=== PATIENT | female | born 1975 | race Caucasian/White ===

== ENCOUNTER → 2018-05-27 13:46 | Outpatient (CLI) | payer OTHER, SELFPAY ==
--- NOTE | 2018-05-27 13:52 | ECHOD_ITS ---
Reason For Study: CHEST PAIN Procedure This was a 2D Doppler, Color Flow transthoracic echocardiogram. Exam performed in department. Left Ventricle Normal size and thickness. The estimated ejection fraction is 65 %. Normal diastology for age. No regional wall motion abnormalities noted. Right Ventricle Normal size and thickness. Normal systolic function. Atria Normal left atrium. Normal right atrium. Normal atrial septum. Mitral Valve The mitral valve is structurally normal. No prolapse or stenosis seen. Trivial mitral valve insufficiency. Tricuspid Valve Normal tricuspid valve. Trivial tricuspid valve insufficiency. Right ventricular systolic pressure estimated to be 35 mmHg. Aortic Valve Normal aortic valve. Trisinus/trileaflet aortic valve. Pulmonic Valve Normal pulmonic valve. Trivial pulmonic valve insufficiency. Great Vessels Normal aortic root. Normal arch. Normal inferior vena cava. Inferior vena cava collapse with sniff. Pericardium/Pleural No pericardial effusion. MMode/2D Measurements & Calculations LVIDd: 4.6 cm IVSd: 0.86 cm Ao root diam: 2.9 cm LVIDs: 3.0 cm LVPWd: 0.92 cm LA dimension: 3.3 cm RVDd: 2.9 cm FS: 34.8 % LAV(MOD-bp): 47.0 ml LA A4 area: 15.1 cm2 RA A4 area: 12.0 cm2 LAV(MOD-bp) Indexed: 26.9 ml/m2 LAV(MOD-sp2): 44.4 ml LAV(MOD-sp4): 41.0 ml Doppler Measurements & Calculations MV E max ousmane: 81.4 cm/sec Lat Peak E' Ousmane: 11.3 cm/sec Med Peak E' Ousmane: 10.6 cm/sec MV A max ousmane: 69.5 cm/sec E/E' lat: 7.2 E/E' med: 7.7 MV E/A: 1.2 Ao V2 max: 115.0 cm/sec LV V1 max: 97.1 cm/sec PA V2 max: 78.5 cm/sec Ao max P.3 mmHg LV V1 max P.8 mmHg PI end-d ousmane: 78.4 cm/sec TR max ousmane: 264.5 cm/sec TR max P.0 mmHg Interpretation Summary The estimated ejection fraction is 65 %. Normal diastology for age. Trivial mitral valve insufficiency. Trivial tricuspid valve insufficiency. Right ventricular systolic pressure estimated to be 35 mmHg. There is no comparison study available. Ordering Physician: Duarte Mayorga Referring Physician: Duarte Mayorga Performed By: Verónica Judd RDCS, RVT
== END ==
PROVIDERS: Family Provider Family Medicine; PCP Family Medicine; Referring Provider Internal Medicine Cardiovascular Disease; Visit Provider Internal Medicine Cardiovascular Disease
DX: I10 Essential (primary) hypertension (principal); R07.9 Chest pain, unspecified; Z82.49 Family history of ischemic heart disease and other diseases of the circulatory system
CPT/HCPCS: 93306

== ENCOUNTER → 2018-06-03 09:13 | Outpatient (CLI) | payer OTHER, SELFPAY ==
--- NOTE | 2018-06-03 09:14 | STEWCON_ITS ---
Reason For Study: CHEST PAIN Stress Results Protocol: Edmundo Protocol Maximum Predicted HR: 179 bpm Target HR: 152 bpm% Max imum Predicted HR: 93 % DurationHeart Rate Stage (mm:ss) (bpm) BP BASELINE 77 148/88 STAGE 1 3:00 11 3 150/90 STAGE 2 3:00 14 2 160/90 STAGE 3 3:00 16 6 172/86 RECOVERY 97 120/88 Stress Duration: 9:00 mm:ss Maximum Stress HR: 166 bpm Baseline Echocardiogram Findings The estimated ejection fraction is 60 %. Stress Echo Wall motion Data Resting WMIntermediate WMStress WM Resting Wall Motion Wall Motion Stress No regional wall motion No regional wall motion abnormalities noted. abnormalities noted. EKG Data The baseline ECG displays normal sinus rhythm. The patient exercised according to the regular Edmundo protocol for a total duration of 9:00. The maximum heart rate attained was 166 beats per minute. This was 92% of maximum predicted heart rate. The patient exercised into stage 4 of the Edmundo protocol. During stress, there were no ST or T wave changes noted to suggest ischemia. No clinical angina was noted. Interpretation Summary The estimated ejection fraction is 60 %. Normal, adequate, treadmill echocardiogram. Negative for ischemia by EKG and echocardiographic criteria. No anginal symptoms noted. No arrhythmias noted. Appropriate blood pressure response to exercise. Average exercise capacity for age. Final LVEF of 75%. Test terminated due to leg fatigue and dyspnea. No complications. Ordering Physician: Duarte Mayorga Referring Physician: Duarte Mayorga Performed By: Verónica Judd, ALFONSO, RVT
== END ==
PROVIDERS: Family Provider Family Medicine; PCP Family Medicine; Referring Provider Internal Medicine Cardiovascular Disease; Visit Provider Internal Medicine Cardiovascular Disease
DX: I10 Essential (primary) hypertension (principal); R07.9 Chest pain, unspecified; Z82.49 Family history of ischemic heart disease and other diseases of the circulatory system
CPT/HCPCS: 93017; 93350

== ENCOUNTER 2022-02-01 09:06 | Outpatient (CLI) | payer OTHER, SELFPAY ==
[2022-02-01 10:22] LABS: Hematocrit 41.8 % (37-47); Hemoglobin 13.3 g/dL (12.0-15.0); Mean Corpuscular Hgb 29.9 pg (27.0-32.0); Mean Corpuscular Volume 93.9 fL (81-99); Red Blood Count 4.45 M/mm3 (4.2-5.4); White Blood Count 8.3 K/mm3 (4.4-11.0)
[2022-02-01 10:23] LABS: Basophil# 0.04 X10^3/uL; Basophil% 0.5 % (0-1); Eosinophil# 0.11 X10^3/uL; Eosinophils% 1.3 % (0-5); Mean Corp Hgb Conc 31.8 g/dL (32-36); Mean Platelet Vol. 10.2 fl (6.2-12.0); Monocyte# 0.66 X10^3/uL; Monocyte% 7.9 % (0-10); NRBC Flagged by Analyzer 0 % (0-5); Neutrophil # 5.98 X10^3/uL (2.7-7.7); Neutrophil % 71.8 % (47-70); Platelet Count 275 K/mm3 (150-450); RBC Distribution Width CV 13.2 % (11.6-14.6); RBC Distribution Width SD 45.1 fl (35.1-43.9)
[2022-02-01 11:13] LABS: ALB/GLOB Ratio 1.2 RATIO (0.9-2.4); AST(SGOT) 29 U/L (15-37); Alanine Aminotransfer ALT/SGPT 60 U/L (13-56); Alkaline Phosphatase 66 U/L (45-117); Anion Gap 4 (5-15); BUN 12 mg/dL (7-18); Calcium,Total 9.3 mg/dL (8.5-10.1); Chloride 108 mmol/L (98-107); Cholesterol 225 mg/dL (200); Creatinine, Serum 0.93 mg/dL (0.55-1.02); EST Glomerular Filtration Rate 70 mL/min (>60); Est Glom Filt Rate - Afr Amer 84 mL/min (>60); Globulin 3.4 g/dL (2.2-4.2); Glucose 96 mg/dL (74-106); High Density Lipoprotein 54 mg/dL; Potassium 3.8 mmol/L (3.5-5.1); Protein, Total 7.4 g/dL (6.4-8.2); Sodium Level 141 mmol/L (136-145); Thyroid Stim Hormone (TSH) 1.05 uIU/mL (0.358-3.74); Triglycerides 167 mg/dL; Very Low Density Lipoprotein 33 mg/dL (5-40)
== END 2022-02-01 23:59 | disposition home or self-care (01) ==
PROVIDERS: PCP Family Medicine; Referring Provider Family Medicine; Visit Provider Family Medicine
DX: Z00.00 Encounter for general adult medical examination without abnormal findings (principal); R53.83 Other fatigue; E28.319 Asymptomatic premature menopause; I10 Essential (primary) hypertension
CPT/HCPCS: 36415; 80053; 80061; 84443; 85025

== ENCOUNTER → 2022-03-02 | Outpatient (CLI) | payer OTHER, SELFPAY ==
--- NOTE | 2022-03-02 14:05 | BI_ITS ---
MAMMOGRAPHY - BILATERAL SCREENING REASON FOR EXAM: Female, 46 years old. Routine annual screening examination. PERTINENT HISTORY: Non-contributory. TECHNIQUE: Digital bilateral breast jacqueline (3D mammographic acquisition) in the CC and MLO projections. 2-D mediolateral oblique (MLO) and craniocaudad (CC) views of both breasts were obtained. CAD: Full Field Digital Mammography with Computer Added Detection was performed. COMPARISON: Comparison is made with prior outside examination dated 06/02/2020. FINDINGS: Breast Composition: The breasts are heterogeneously dense, which may obscure small masses. There are no dominant masses or suspicious calcifications. Stable small benign-appearing bilateral axillary lymph nodes. No other significant abnormalities are identified. There has been no significant change since the prior study. BI/SCRN MAMM (CAD)W/JACQUELINE BILAT IMPRESSION: Stable bilateral screening mammogram. Yearly follow-up mammogram recommended. (A) ASSESSMENT CATEGORY: BIRADS Category 2: Benign. A letter regarding these results will be sent to the patient by the facility within 30 days. Approximately 10% of breast cancers are not detected by mammography. A normal mammogram should not delay biopsy of a clinically suspicious abnormality. [id number] Electronically Signed: Scott Pepe MD at 14:51 EDT ,
== END | disposition home or self-care (01) ==
LOC: OPBI 14:03
PROVIDERS: PCP Family Medicine; Referring Provider Family Medicine; Visit Provider Family Medicine
DX: Z12.31 Encounter for screening mammogram for malignant neoplasm of breast (principal)
CPT/HCPCS: 77063; 77067

== ENCOUNTER → 2023-02-12 | Outpatient (CLI) | payer OTHER, SELFPAY ==
[2023-02-12 13:06] LABS: Absolute Lymphocyte Count 2.08 X10^3/uL (0.83-4.51); Absolute Neutrophil Count 4.8 X10^3/uL (2.0-7.7); Basophil# 0.05 X10^3/uL; Basophil% 0.7 % (0-1); Eosinophil# 0.06 X10^3/uL; Eosinophils% 0.8 % (0-5); Hematocrit 45.3 % (37-47); Hemoglobin 14.4 g/dL (12.0-15.0); Lymphocyte # 2.08 X10^3/ul (0.83-4.51); Lymphocyte % 27.5 % (19-41); Mean Corp Hgb Conc 31.8 g/dL (32-36); Mean Corpuscular Hgb 29.1 pg (27.0-32.0); Mean Corpuscular Volume 91.7 fL (81-99); Mean Platelet Vol. 9.8 fl (6.2-12.0); Monocyte# 0.55 X10^3/uL; Monocyte% 7.3 % (0-10); NRBC Flagged by Analyzer 0 % (0-5); Neutrophil # 4.79 X10^3/uL (2.7-7.7); Neutrophil % 63.3 % (47-70); Platelet Count 313 K/mm3 (150-450); RBC Distribution Width CV 13.1 % (11.6-14.6); RBC Distribution Width SD 44.5 fl (35.1-43.9); Red Blood Count 4.94 M/mm3 (4.2-5.4); White Blood Count 7.6 K/mm3 (4.4-11.0)
[2023-02-12 14:01] LABS: AST(SGOT) 31 U/L (15-37); Alanine Aminotransfer ALT/SGPT 62 U/L (13-56); Albumin, Serum 4.2 g/dL (3.2-5.0); Alkaline Phosphatase 84 U/L (45-117); Anion Gap 8 (5-15); BUN 10 mg/dL (7-18); BUN/Creat Ratio 11.1 RATIO (10-20); Calcium,Total 9.9 mg/dL (8.5-10.1); Chloride 105 mmol/L (98-107); EST Glomerular Filtration Rate 71 mL/min (>60); Est Glom Filt Rate - Afr Amer 86 mL/min (>60); Glucose 118 mg/dL (74-106); Potassium 3.7 mmol/L (3.5-5.1); Protein, Total 8.2 g/dL (6.4-8.2); Sodium Level 140 mmol/L (136-145)
== END | disposition home or self-care (01) ==
LOC: LAB 12:45
PROVIDERS: PCP Family Medicine; Referring Provider Family Medicine; Visit Provider Family Medicine
DX: Z00.00 Encounter for general adult medical examination without abnormal findings (principal); I10 Essential (primary) hypertension
CPT/HCPCS: 36415; 80053; 85025

== ENCOUNTER → 2023-04-16 | Outpatient (CLI) | payer OTHER, SELFPAY ==
--- NOTE | 2023-04-16 09:32 | BI_ITS ---
MAMMOGRAPHY - BILATERAL SCREENING REASON FOR EXAM: Female, 47 years old. Routine annual screening examination. PERTINENT HISTORY: Non-contributory. TECHNIQUE: Digital bilateral breast jacqueline (3D mammographic acquisition) in the CC and MLO projections. 2-D mediolateral oblique (MLO) and craniocaudad (CC) views of both breasts were obtained. CAD: Full Field Digital Mammography with Computer Added Detection was performed. COMPARISON: Screening mammogram from 03/02/2022. FINDINGS: Breast Composition: The breasts are heterogeneously dense, which may obscure small masses. There are no dominant masses or suspicious calcifications. No other significant abnormalities are identified. There has been no significant change since the prior study. BI/SCRN MAMM (CAD)W/JACQUELINE BILAT IMPRESSION: Stable bilateral screening mammogram. Yearly follow-up mammogram recommended. (A) ASSESSMENT CATEGORY: BIRADS Category 1: Negative. A letter regarding these results will be sent to the patient by the facility within 30 days. Approximately 10% of breast cancers are not detected by mammography. A normal mammogram should not delay biopsy of a clinically suspicious abnormality. Electronically Signed: Willis Hirsch DO at 14:52 EDT ,
== END | disposition home or self-care (01) ==
LOC: OPBI 09:30
PROVIDERS: PCP Family Medicine; Referring Provider Family Medicine; Visit Provider Family Medicine
DX: Z12.31 Encounter for screening mammogram for malignant neoplasm of breast (principal)
CPT/HCPCS: 77063; 77067

== ENCOUNTER → 2023-12-12 | Outpatient (CLI) | payer OTHER, SELFPAY ==
[2023-12-12 18:09] LABS: Hematocrit 42.5 % (37-47); Hemoglobin 13.8 g/dL (12.0-15.0); Mean Corp Hgb Conc 32.5 g/dL (32-36); Mean Corpuscular Hgb 29.2 pg (27.0-32.0); Mean Corpuscular Volume 89.9 fL (81-99); Mean Platelet Vol. 10.2 fl (6.2-12.0); Platelet Count 338 K/mm3 (150-450); RBC Distribution Width CV 13.3 % (11.6-14.6); RBC Distribution Width SD 44.3 fl (35.1-43.9); Red Blood Count 4.73 M/mm3 (4.2-5.4); White Blood Count 6.3 K/mm3 (4.4-11.0)
[2023-12-12 18:23] LABS: Hemoglobin A1c 5.5 % (3.8-5.6)
[2023-12-12 18:25] LABS: Estradiol 15.4 pg/mL; Follicle Stimulating Hormone 63.2 mIU/mL; Glucose 134 mg/dL (74-106); Thyroid Stim Hormone (TSH) 0.87 uIU/mL (0.358-3.74)
[2023-12-12 18:26] LABS: Insulin 232.8 mU/L (2.6-37.6); Vitamin D,25 Hydroxy 13.4 ng/mL
[2023-12-17 08:06] LABS: Anti-Mullerian Hormone,Serum < 0.015 ng/mL (.)
== END | disposition home or self-care (01) ==
PROVIDERS: PCP Family Medicine; Referring Provider Midwife; Visit Provider Midwife
DX: Z01.419 Encounter for gynecological examination (general) (routine) without abnormal findings (principal); R63.5 Abnormal weight gain
CPT/HCPCS: 36415; 82306; 82670; 82947; 83001; 83036; 83516; 83525; 84443; 85027

== ENCOUNTER → 2024-04-20 | Outpatient (CLI) | payer OTHER, SELFPAY ==
--- NOTE | 2024-04-20 10:05 | BI_ITS ---
MAMMOGRAPHY - BILATERAL SCREENING REASON FOR EXAM: Female, 48 years old. Routine annual screening examination. PERTINENT HISTORY: Non-contributory. TECHNIQUE: Digital bilateral breast jacqueline (3D mammographic acquisition) in the CC and MLO projections. 2-D mediolateral oblique (MLO) and craniocaudad (CC) views of both breasts were obtained. CAD: Full Field Digital Mammography with Computer Added Detection was performed. COMPARISON: Comparison is made with prior study April 16, 2023 and March 02, 2022. FINDINGS: Breast Composition: The breasts are heterogeneously dense, which may obscure small masses. There are no dominant masses or suspicious calcifications. Stable small benign-appearing bilateral axillary lymph nodes. No other significant abnormalities are identified. There has been no significant change since the prior study. BI/SCRN MAMM (CAD)W/JACQUELINE BILAT IMPRESSION: Stable bilateral screening mammogram. Yearly follow-up mammogram recommended. (A) ASSESSMENT CATEGORY: BIRADS Category 2: Benign. A letter regarding these results will be sent to the patient by the facility within 30 days. Approximately 10% of breast cancers are not detected by mammography. A normal mammogram should not delay biopsy of a clinically suspicious abnormality. [id number] Electronically Signed: Scott Pepe MD at 10:45 EDT ,
== END | disposition home or self-care (01) ==
LOC: OPBI 09:57
PROVIDERS: PCP Family Medicine; Referring Provider Midwife; Visit Provider Midwife
DX: Z12.31 Encounter for screening mammogram for malignant neoplasm of breast (principal)
CPT/HCPCS: 77063; 77067

== ENCOUNTER → 2024-09-22 | Outpatient (CLI) | payer OTHER, SELFPAY ==
--- NOTE | 2024-09-22 11:44 | US_ITS ---
PROCEDURE: Thyroid ultrasound REASON FOR EXAM: Swollen lymph node. TECHNIQUE: Thyroid ultrasound COMPARISON: None. FINDINGS: RIGHT LOBE: The right lobe of the thyroid gland measures 4 cm x 1.9 cm x 1.7 cm. There is a homogen eous echotexture. There are no demonstrated solid, cystic or complex lesions. LEFT LOBE: The left lobe of the thyroid gland measures 3.9 cm x 1.5 cm x 1.9 cm. There is a homogen eous echotexture. There are no demonstrated solid, cystic or complex lesions. ISTHMUS: The isthmus measures 4 mm. 8 mm x 4 mm x 2 mm benign-appearing right-sided lymph node. US/Thyroid IMPRESSION: NORMAL THYROID ULTRASOUND 8 mm x 4 mm x 2 mm right cervical lymph node. [facility]
== END | disposition home or self-care (01) ==
LOC: US 11:43
PROVIDERS: PCP Family Medicine; Referring Provider Family Medicine; Visit Provider Family Medicine
DX: E01.0 Iodine-deficiency related diffuse (endemic) goiter (principal)
CPT/HCPCS: 76536

== ENCOUNTER 2025-01-06 13:33 | Outpatient (CLI) | payer OTHER, SELFPAY ==
[2025-01-06 15:28] LABS: Follicle Stimulating Hormone 62.3 mIU/mL
== END 2025-01-06 23:59 | disposition home or self-care (01) ==
PROVIDERS: Referring Provider Nurse Practitioner Family; Visit Provider Nurse Practitioner Family
DX: N95.1 Menopausal and female climacteric states (principal)
CPT/HCPCS: 36415; 82670; 83001

== ENCOUNTER → 2025-01-26 | Outpatient (CLI) | payer OTHER, SELFPAY | END | disposition home or self-care (01) | LOC: LABSPEC 08:16 | PROVIDERS: Visit Provider Physician Assistant | DX: R30.0 Dysuria (principal) | CPT/HCPCS: 87077; 87086; 87088; 87186 ==

== ENCOUNTER → 2025-02-12 | Outpatient (CLI) | payer OTHER, SELFPAY ==
[2025-02-12 10:04] LABS: Absolute Lymphocyte Count 2.66 X10^3/uL (0.83-4.51); Absolute Neutrophil Count 3.7 X10^3/uL (2.0-7.7); Basophil# 0.05 X10^3/uL; Basophil% 0.7 % (0-1); Eosinophil# 0.13 X10^3/uL; Eosinophils% 1.8 % (0-5); Hematocrit 42.2 % (37-47); Hemoglobin 13.8 g/dL (12.0-15.0); Lymphocyte # 2.66 X10^3/ul (0.83-4.51); Lymphocyte % 36.3 % (19-41); Mean Corp Hgb Conc 32.7 g/dL (32-36); Mean Corpuscular Hgb 29.7 pg (27.0-32.0); Mean Corpuscular Volume 90.8 fL (81-99); Mean Platelet Vol. 9.9 fl (6.2-12.0); Monocyte# 0.79 X10^3/uL; Monocyte% 10.8 % (0-10); NRBC Flagged by Analyzer 0 % (0-5); Neutrophil # 3.67 X10^3/uL (2.7-7.7); Neutrophil % 50.1 % (47-70); Platelet Count 347 K/mm3 (150-450); RBC Distribution Width SD 42.8 fl (35.1-43.9); Red Blood Count 4.65 M/mm3 (4.2-5.4); White Blood Count 7.3 K/mm3 (4.4-11.0)
--- NOTE | 2025-02-12 10:11 | RAD_ITS ---
EXAM: XR Right Hip With Pelvis When Performed, 2 or 3 Views CLINICAL INDICATION: PAIN TECHNIQUE: Two or three views of the right hip with pelvis when performed. COMPARISON: No relevant prior studies available. FINDINGS: BONES/JOINTS: Mild degenerative changes of the right hip joint. No dislocation. No acute fracture. SOFT TISSUES: Unremarkable. RAD/HIP, UNI W/ Pelvis 2-3 Views IMPRESSION: No acute fracture. Reading Location: [id number]
[2025-02-12 11:11] LABS: ALB/GLOB Ratio 1.4 RATIO (0.9-2.4); AST(SGOT) 27 U/L (<=31); Alanine Aminotransfer ALT/SGPT 38 U/L (<=34); Albumin, Serum 4.3 g/dL (3.5-5.0); Alkaline Phosphatase 70 U/L (35-104); Anion Gap 13 (5-15); BUN 14 mg/dL (4-19); BUN/Creat Ratio 16.2 RATIO (10-20); Calcium,Total 9.6 mg/dL (7.6-11.0); Carbon Dioxide 27.3 mmol/L (21.0-32.0); Chloride 100 mmol/L (98-108); Cholesterol 225 mg/dL (<=200); Creatinine, Serum 0.85 mg/dL (0.70-1.20); EST Glomerular Filtration Rate 85 (>60); Glucose 101 mg/dL (70-99); High Density Lipoprotein 47 mg/dL; Low Density Lipoprotein Calc. 146 mg/dL; Potassium 3.7 mmol/L (3.3-5.1); Protein, Total 7.3 g/dL (5.9-8.4); Sodium Level 140 mmol/L (133-145); Total Bilirubin 0.31 mg/dL (0.00-1.30); Triglycerides 161 mg/dL; Very Low Density Lipoprotein 32 mg/dL (5-40); cholesterol:hdl ratio screen 4.78
== END | disposition home or self-care (01) ==
LOC: MTLAB 07:32 → MTRAD 09:48
PROVIDERS: PCP Family Medicine; Referring Provider Family Medicine; Visit Provider Family Medicine
DX: Z00.00 Encounter for general adult medical examination without abnormal findings (principal); I10 Essential (primary) hypertension; R53.83 Other fatigue; M25.551 Pain in right hip
CPT/HCPCS: 36415; 73502; 80053; 80061; 84443; 85025

== ENCOUNTER → 2025-04-14 | Outpatient (CLI) | payer OTHER, SELFPAY ==
--- OUTSIDE RECORDS SUMMARY | 2025-04-14 07:08 | XMS RPT_ITS | CCD ---
Author Organization [facility] Care Team Providers Care Ui Ux Web Developer Name Role Phone Georgia Dillon MD Primary Care Provider RADHA PATRICK Primary Care Physician [phone] ITZEL CAPONE Attending Unav ailable RADHA PATRICK Primary Care Unavailable Georgia Dillon MD Primary Care Provider Dr. Radha Patrick MD Primary Care Provider Dr. Radha Patrick MD Attending Provider Dr. Radha Patrick MD Referring Provider Dr. Jr Oviedo MD Attending Provider Anitha TELLEZ-CYamilex Attending Provider Anitha HENSONCYamilex Referring Provider Dr. Radha Patrick MD Referring Provider Cole Mejia Attending Provider Dr. Jr Oviedo MD Referring Provider Dr. Radha Patrick MD Referring Provider Dr. Radha Patrick MD Primary Care Provider Dr. Radha Patrick MD Attending Provider Radha Patrick Referring Unavailable Radha Patrick Primary Care Unavailable Yamilex Welsh Attending Unavailable Yamilex Welsh Referring Unavailable Yamilex Welsh Attending Unavailable Radha Patrick Referring Unavailable Miedel, Radha Primary Care Unavailable Darnell Radha Attending Unavailable Miedel, Radha Referring Unavailable Miedel, Radha Primary Care Unavailable Mianuj Radha Attending Unavailable Miedel, Radha Primary Care Unavailable Miedel Radha Attending Unavailable Miedel, Radha Referring Unavailable Itzel Berg Attending Unavailable Itzel Berg Referring Unavailable Nved, Radha Primary Care Unavailable Cole Mejia Attending Unavailable Leanneedel, Radha Referring Unavailable [place]iedel, Radha Primary Care Unavailable Mianuj Radha Attending Unavailable Jr Oviedo Attending Unavailable Jr Oviedo Referring Unavailable Cole Mejia Attending Unavailable Medications Current Medications Medication Drug Class(es) Dates Sig (Normalized) Sig (Original) amLODIPine 10 mg / hydroCHLOROthiazide 12.5 mg / olmesartan medoxomil 40 mg oral tablet (5 sources) Thiazide Diuretic, Dihydropyridine Calcium Channel Lito, Angiotensin 2 Receptor Lito Start: 5 Olmesartan-Amlodip in-Hcthiazid 40-10-12.5 mg tablet Active 1 {tbl} PO daily December 09, 2024 12:00am cholecalciferol 0.025 mg oral capsule (5 sources) Vitamin D Start: 5 take 1 capsule by mouth once daily Cholecalciferol (Vitamin D3) 25 mcg (1,000 unit) capsule Active 25 ug PO daily December 09, 2024 12:00am Estradiol (Vivelle-Dot) 0.05 mg/24 hr patch semiweekly (1 source) Start: 5 apply 1 dose transdermal route two times weekly, then apply 1 dose transdermal route every hour Estradiol (Vivelle-Dot) 0.05 mg/24 hr patch semiweekly Active 1 NMA TD TWICE A WEEK 8 February 04, 2025 12:00am apply 1 patch for 3 days alternating with 1 patch for 4 days each week fluticasone propionate 0.05 mg/actuat metered dose nasal spray (4 sources) Corticosteroid Start: 1 take 2 spray(s) by mouth once daily fluticasone (FLONASE) 50 mcg/actuation nasal spray Indications: Dysfunction of Eustachian tube, unspecified laterality Use 2 Sprays in each nostril once daily. Rinse mouth after use. 1 Bottle 12/22/2020 Active Comment on above: Use 2 Sprays in each nostril once daily. Rinse mouth after use. folic acid 0.4 mg oral tablet (5 sources) Start: 5 take 0.4 mg by mouth once daily Folic Acid 400 mcg tablet Active 0.4 mg PO daily December 09, 2024 12:00am magnesium oxide 500 mg oral capsule (5 sources) Start: 5 take 1 capsule by mouth once daily Magnesium Oxide 500 mg capsule Active 500 mg PO daily December 09, 2024 12:00am mecobalamin (5 sources) Start: 5 Mecobalamin (Vitamin B12) 2,500 mcg tablet,chewable Active ug PO December 09, 2024 12:00am meloxicam 15 mg oral tablet (5 sources) Nonsteroidal Anti-inflammatory Drug Start: 5 take 1 tablet by mouth once daily Meloxicam 15 mg tablet Active 15 mg PO daily December 09, 2024 12:00am olmesartan medoxomil 40 mg oral tablet (5 sources) Angiotensin 2 Receptor Lito Start: 1 take 1 tablet by mouth once daily olmesartan (BENICAR) 40 mg tablet Take 1 tablet by mouth once daily. 30 tablet 12/22/2020 Active Comment on above: Take 1 tablet by lynette th once daily. pantoprazole 40 mg delayed release oral tablet (5 sources) Proton Pump Inhibitor Start: 5 take 1 tablet by mouth once daily Pantoprazole 40 mg tablet,delayed release (DR/EC) Active 40 mg PO daily December 09, 2024 12:00am phentermine hydrochloride 37.5 mg oral capsule (14 sources) Sympathomimetic Amine Anorectic Start: 5 take 1 capsule by mouth once daily 30 minutes after breakfast Phentermine 37.5 mg capsule Active 37.5 mg PO daily December 09, 2024 12:00am must administer 30 minutes before or 1-2 hours after breakfast Start: 05-19-2018 End: 05-22-2018 take 1 capsule by mouth once daily Phentermine (Adipex-P) 37.5 mg capsule Discontinued 37.5 mg PO DAILY May 19, 2018 12:00am May 22, 2018 11:13am progesterone 100 mg oral capsule (9 sources) Progesterone Start: 12-09-2024 End: 01-06-2025 take 1 capsule by mouth once daily in the morning Progesterone Micronized (Prometrium) 100 mg capsule Active 100 mg PO EVERY MORNING 30 January 06, 2025 3:31pm off 7 days; repeat cycle Completed/Discontinued Medications Medication Drug Class(es) Dates Sig (Normalized) Sig (Original) 84 hr estradiol 0.01063 mg/hr transdermal system (10 sources) Estrogen Start: 01-06-2025 End: 02-04-2025 Estradiol 0.0375 mg/24 hr patch semiweekly Discontinued 1 NMA TD TWICE A WEEK 8 January 06, 2025 12:00am February 04, 2025 2:33pm apply 1 patch for 3 days alternating with 1 patch for 4 days each week for 3 wks per 4-wk cycle Start: 12-09-2024 End: 01-06-2025 apply 1 dose transdermal route two times weekly, then apply 1 dose transdermal route once Estradiol 0.025 mg/24 hr patch semiweekly Discontinued 1 NMA TD TWICE A WEEK December 09, 2024 12:00am January 06, 2025 3:32pm apply 1 patch for 3 days alternating with 1 patch for 4 days each week Start: 12-07-2019 End: 06-14-2021 take 1 tablet by mouth once daily estradiol (ESTRACE) 1 mg tablet Take 1 tablet by mouth once daily. 30 tablet 5 12/07/2019 06/14/2021 Discontinued (Course of therapy completed) folic acid 0.4 mg / vitamin b12 0.5 mg oral tablet (9 sources) Vitamin B12 Start: 05-22-2018 End: 12-09-2024 take 1 tablet by mouth once daily Vitamin J91-Gdtyk Acid 500-400 mcg tablet Discontinued 1 {tbl} PO .COMPLEX May 22, 2018 12:00am December 09, 2024 10:16am 1 tab PO 500 B 12 with 800 folic acid once daily ketorolac tromethamine 10 mg oral tablet (13 sources) Nonsteroidal Anti-inflammatory Drug, Cyclooxygenase Inhibitor Start: 05-28-2017 End: 05-22-2018 take 1 tablet by mouth every six hours as needed Ketorolac 10 mg tablet Discontinued 10 mg PO EVERY 6 HOURS as needed May 19, 2018 12:00am May 22, 2018 11:12am Comment on above: Take 1 tablet by lynette th every 6 hours as needed. losartan potassium 50 mg oral tablet (9 sources) Angiotensin 2 Receptor Lito Start: 05-19-2018 End: 12-09-2024 take 1 tablet by mouth once daily Losartan 50 mg tablet Discontinued 50 mg PO DAILY May 19, 2018 12:00am December 09, 2024 10:15am nitrofurantoin, macrocrystals 25 mg / nitrofurantoin, monohydrate 75 mg oral capsule (3 sources) Nitrofuran Antibacterial Start: 01-26-2025 End: 01-31-2025 take 1 capsule by mouth every twelve hours at mealtime Nitrofurantoin Monohyd/M-Cryst (Macrobid) 100 mg capsule Discontinued 100 mg PO Q12H 10 5 0 January 26, 2025 12:00am January 30, 2025 12:00am January 31, 2025 12:08am must administer with a meal/food sulfacetamide sodium 100 mg/ml / sulfur 45 mg/ml medicated liquid soap (9 sources) Sulfonamide Antibacterial Start: 05-19-2018 End: 12-09-2024 Sulfacetamide Sodium-Sulfur (Rosula) 10-4.5 % cleanser Discontinued 1 NMA TOPICAL DAILY May 19, 2018 12:00am December 09, 2024 10:16am Start: 05-19-2018 Sulfacetamide Sodium-Sulfur (Rosula) 10-4.5 % cleanser Active 1 APPLIC TOPICAL DAILY May 19, 2018 12:00am ZOLMitriptan 5 mg oral tablet (14 sources) Serotonin-1b and Serotonin-1d Receptor Agonist Start: 05-19-2018 End: 12-09-2024 take 1 tablet by mouth once daily as needed Zolmitriptan (Zomig) 5 mg tablet Discontinued 5 mg PO .COMPLEX May 19, 2018 12:00am December 09, 2024 10:16am 5 mg PO daily prn, may repeat X1 if not effective Comment on above: Take at once for cristian lucien. May repeat in 2 hours if needed. Problems Active Problems Problem Classification Problem Date Documented Da te Episodic/Chronic Contraceptive and procreative management (16 sources) Patient encounter status; Translations: [Encounter for sterilization] Onset: 08-02-2005 08-02-2005 Episodic Essential hypertension (9 sources) Hypertensive disorder; Translations: [Essential (primary) hypertension] 05-19-2018 Chronic Genitourinary symptoms and ill-defined conditions (1 source) Dysuria; Translations: [Dysuria] Onset: 01-28-2025 Episodic Headache; including migraine (13 sources) Menstrual migraine; Translations: [Menstrual migraine, not intractable, without status migrainosus] Onset: 05-28-2006 08-21-2021 Chronic Menopausal disorders (13 sources) Premature menopause; Translations: [Asymptomatic premature menopause] Onset: 04-27-2015 04-27-2015 Chronic Menstrual disorders (20 sources) Dysmenorrhea; Translations: [Dysmenorrhea, unspecified] Onset: 07-03-2011 07-03-2011 Chronic Nonspecific chest pain (9 sources) Chest pain; Translations: [Chest pain, unspecified] 11-27-2018 Episodic Other gastrointestinal disorders (13 sources) Irritable bowel syndrome; Translations: [Irritable bowel syndrome without diarrhea] Onset: 05-28-2006 05-28-2006 Chronic Other inflammatory condition of skin (9 sources) Rosacea; Translations: [Rosacea, unspecified] 05-19-2018 Chronic Other lower respiratory disease (1 source) Cough; Translations: [Cough] 05-16-2021 Episodic Other nutritional; endocrine; and metabolic disorders (4 sources) Obesity; Translations: [Obesity, unspecified] Onset: 02-23-2008 02-23-2008 Chronic Otitis media and related conditions (13 sources) Dysfunction of eustachian tube; Translations: [Other specified disorders of Eustachian tube, unspecified ear] 06-22-2011 Episodic Residual codes; unclassified (9 sources) History of chest pain; Translations: [Personal history of other specified conditions] 11-27-2018 Episodic Residual codes; unclassified (9 sources) Family history of ischemic heart disease; Translations: [Family history of ischemic heart disease and other diseases of the circulatory system] 05-19-2018 Episodic Residual codes; unclassified (9 sources) History of endometrial ablation; Translations: [Other specified postprocedural states] 05-19-2018 Episodic Residual codes; unclassified (1 source) Encounter for cosmetic surgery; Translations: [Encounter for cosmetic surgery] Onset: 02-03-2025 Episodic Spondylosis; intervertebral disc disorders; other back problems (13 sources) Sciatica; Translations: [Sciatica, unspecified side] Onset: 11-10-2007 11-10-2007 Episodic Thyroid disorders (1 source) Iodine-deficiency related diffuse (endemic) goiter; Translations: [Iodine-deficiency related diffuse (endemic) goiter] Onset: 10-09-2024 Chronic Viral infection (1 source) COVID-19; Translations: [Pneumonia due to other virus not elsewhere classified] 06-14-2021 Episodic Past or Other Problems Problem Classification Problem Date Documented Da te Episodic/Chronic Administrative/social admission (4 sources) Multiparous; Translations: [Problems related to multiparity] Onset: 08-02-2005 08-02-2005 Episodic Menopausal disorders (1 source) Hormone replacement therapy; Translations: [Hormone replacement therapy] Onset: 01-06-2025 Episodic Neoplasms of unspecified nature or uncertain behavior (4 sources) Neoplasm of uncertain behavior of skin; Translations: [Neoplasm of uncertain behavior of skin] Onset: 07-21-2010 07-21-2010 Episodic Nutritional deficiencies (4 sources) Cobalamin deficiency; Translations: [Deficiency of other specified B group vitamins] Onset: 06-04-2017 06-04-2017 Episodic Other and unspecified benign neoplasm (1 source) Neoplasm of soft tissue; Translations: [Other benign neoplasm of skin, unspecified] Onset: 07-21-2010 07-21-2010 Episodic Other and unspecified benign neoplasm (3 sources) Dysplastic nevus of skin; Translations: [Other benign neoplasm of skin, unspecified] Onset: 07-21-2010 07-21-2010 Episodic Other circulatory disease (4 sources) Elevated blood-pressure reading without diagnosis of hypertension; Translations: [Elevated blood-pressure reading, without diagnosis of hypertension] Onset: 05-28-2006 05-28-2006 Episodic Other connective tissue disease (4 sources) Pain in limb; Translations: [Pain in unspecified limb] Onset: 10-17-2007 10-17-2007 Episodic Other ear and sense organ disorders (4 sources) Tinnitus; Translations: [Tinnitus, unspecified ear] Onset: 02-25-2009 02-25-2009 Episodic Other ear and sense organ disorders (4 sources) Hyperacusis; Translations: [Hyperacusis, unspecified ear] Onset: 02-25-2009 02-25-2009 Episodic Other screening for suspected conditions (not mental disorders or infectious disease) (5 sources) Encounter for screening for malignant neoplasm of cervix; Translations: [Encounter for other screening for malignant neoplasm of breast] Onset: 12-04-2023 Episodic Results Test Name Value Interpretation Reference Range Facility Absolute lymphocyte countOrd ered By: Radha Patrick on 02-12-2025 Lymphocytes Auto (Unsp spec) [#/Vol] 2.66 10*3/uL 0.83-4.51 [facility] Absolute neutrophil countOrd ered By: Radha Patrick on 02-12-2025 Neutrophils (Bld) [#/Vol] 3.7 10*3/uL 2.0-7.7 [facility] Anion gap in Serum or Plasma Ordered By: Radha Patrick on 02-12-2025 Anion gap [Moles/Vol] 13 mmol/L - [facility] Automated lymphocyte count a s percentage of total leukocytesOrdered By: Radha Patrick on 02-12-2025 Lymphocytes/100 WBC Auto (Unsp spec) 36.3 % - [facility] BUN/creatinine ratioOrdered By: [facility] 02-[facility]-2025 Urea nitrogen/Creatinine [Mass ratio] 16.2 mg/mg 06-14 [facility] Basophil percentageOrdered B y: Radha Patrick on 02-12-2025 Basophils/100 WBC (Bld) 0.7 % 0-1 [facility] Bilirubin, totalOrdered By: Radha Patrick on 02-12-2025 Bilirubin [Mass/Vol] 0.31 mg/dL 0.00-1.30 [facility] CBC W/Diff, Automatedon 01-25 Absolute Lymph 2.66 X10 3/uL Normal 0.83-4.51 [facility] Comment on above: Performed By: #### L 500.4050, L500.4100, L501.9520, L100.0100 #### [facility] [address] [place], [place], [id number] Absolute Neut 3.7 X10 3/uL Normal 2.0-7.7 [facility] Comment on above: Performed By: #### L 500.4050, L500.4100, L501.9520, L100.0100 #### [facility] [address] [place], [address] Basophils/100 WBC (Bld) 0.7 % Normal 0-1 [facility] Comment on above: Performed By: #### L 500.4050, L500.4100, [id number], L100.0100 #### [facility] [address] [place], [address] Eosinophils/100 WBC (Bld) 1.8 % Normal 0-5 [facility] Comment on above: Performed By: #### L 500.4050, L500.4100, [id number], L100.0100 #### [facility] [address] [place], [address] Erythrocyte distribution width (RBC) [Ratio] 13.0 % Normal 11.6-14.6 [facility] Comment on above: Performed By: #### L 500.4050, L500.4100, [id number], L100.0100 #### [facility] [address] [place], [address] Hematocrit (Bld) [Volume fraction] 42.2 % Normal 37-47 [facility] Comment on above: Performed By: #### L 500.4050, L500.4100, [id number], L100.0100 #### [facility] [address] [place], [address] Hemoglobin (Bld) [Mass/Vol] 13.8 g/dL Normal 12.0-15.0 [facility] Comment on above: Performed By: #### L 500.4050, L500.4100, [id number], L100.0100 #### [facility] [address] [place], [address] IG% 0.300 Normal 0.0-0.9 [facility] Comment on above: Result Comment: IG% - Immature Granulocytes (promyelocytes, myelocytes and metamyelocytes) > 1% indicates that a LEFT SHIFT is Present. Performed By: #### L 500.4050, L500.4100, [id number], L100.0100 #### [facility] [address] [place], [address] Lymphocytes/100 WBC (Bld) 36.3 % Normal 19-41 [facility] Comment on above: Performed By: #### L 500.4050, L500.4100, [id number], L100.0100 #### [facility] [address] [place], [address] MCH (RBC) [Entitic mass] 29.7 pg Normal 27.0-32.0 [facility] Comment on above: Performed By: #### L 500.4050, L500.4100, [id number], L100.0100 #### [facility] [address] [place], [address] MCHC (RBC) [Mass/Vol] 32.7 g/dL Normal 32-36 [facility] Comment on above: Performed By: #### L 500.4050, L500.4100, [id number], L100.0100 #### [facility] [address] [place], [address] MCV (RBC) [Entitic vol] 90.8 fL Normal 81-99 [facility] Comment on above: Performed By: #### L 500.4050, L500.4100, [id number], L100.0100 #### [facility] [address] [place], [address] Monocytes/100 WBC (Bld) 10.8 % High 0-10 [facility] Comment on above: Performed By: #### L 500.4050, L500.4100, [id number], L100.0100 #### [facility] [address] [place], [address] Neutrophils/100 WBC (Bld) 50.1 % Normal 47-70 [facility] Comment on above: Performed By: #### L 500.4050, L500.4100, [id number], L100.0100 #### [facility] [address] [place], [address] Nucleated RBC (Bld) [#/Vol] 0 10*3/uL Normal 0-5 [facility] Comment on above: Performed By: #### L 500.4050, L500.4100, [id number], L100.0100 #### [facility] [address] [place], [address] Platelet mean volume (Bld) [Entitic vol] 9.9 fL Normal 6.2-12.0 [facility] Comment on above: Performed By: #### L 500.4050, L500.4100, [id number], L100.0100 #### [facility] [address] [place], [address] Platelets (Bld) [#/Vol] 347 10*3/uL Normal 150-450 [facility] Comment on above: Performed By: #### L 500.4050, L500.4100, [id number], L100.0100 #### [facility] [address] [place], [address] RBC (Bld) [#/Vol] 4.65 10*6/uL Normal 4.2-5.4 [facility] Comment on above: Performed By: #### L 500.4050, L500.4100, [id number], L100.0100 #### [facility] [address] [place], [address] RDW SD 42.8 fl Normal 35.1-43.9 [facility] Comment on above: Performed By: #### L 500.4050, L500.4100, [id number], L100.0100 #### [facility] [address] [place], [address] WBC (Bld) [#/Vol] 7.3 10*3/uL Normal 4.4-11.0 [facility] Comment on above: Performed By: #### L 500.4050, L500.4100, [id number], L100.0100 #### [facility] [address] [place], [address] Calculated very low density lipoprotein (VLDL) cholesterol measurementOrdered By: Radha Patrick on 02-12-2025 Calculated very low density lipoprotein (VLDL) cholesterol measurement 32 mg/dL 5-40 [facility] Carbon dioxide, total [Moles /volume] in Central venous bloodOrdered By: Radha Patrick on 02-12-2025 CO2 [Moles/Vol] 27.3 mmol/L 21.0-32.0 [facility] Chloride assayOrdered By: Maycol Patrick on 02-12-2025 Chloride [Moles/Vol] 100 mmol/L 98-108 [facility] Comprehensive Metabolic Prof ilon 02-12-2025 Albumin [Mass/Vol] 4.3 g/dL Normal 3.5-5.0 [facility] Comment on above: Performed By: #### L 500.4050, L500.4100, [id number], L100.0100 ####[facility] [address] [place], [address] Albumin/Globulin [Mass ratio] 1.4 {ratio} Normal 0.9-2.4 [facility] Comment on above: Performed By: #### L 500.4050, L500.4100, [id number], L100.0100 ####[facility] [address] [place], [address] ALK PHOS 70 U/L Normal 35-104 [facility] Comment on above: Performed By: #### L 500.4050, L500.4100, [id number], L100.0100 ####[facility] [address] [place], [address] ALT [Catalytic activity/Vol] 38 U/L High <=34 [facility] Comment on above: Performed By: #### L 500.4050, L500.4100, [id number], L100.0100 ####[facility] [address] [place], [address] AST [Catalytic activity/Vol] 27 U/L Normal <=31 [facility] Comment on above: Performed By: #### L 500.4050, L500.4100, [id number], L100.0100 ####[facility] [address] [place], [address] Bilirubin [Mass/Vol] 0.31 mg/dL Normal 0.00-1.30 [facility] Comment on above: Performed By: #### L 500.4050, L500.4100, [id number], L100.0100 ####[facility] [address] [place], [address] BUN/CRE 16.2 RATIO Normal 10-20 [facility] Comment on above: Performed By: #### L 500.4050, L500.4100, [id number], L100.0100 ####[facility] [address] [place], [address] Calcium [Mass/Vol] 9.6 mg/dL Normal 7.6-11.0 [facility] Comment on above: Performed By: #### L 500.4050, L500.4100, [id number], L100.0100 ####[facility] [address] [place], [address] Chloride [Moles/Vol] 100 mmol/L Normal 98-108 [facility] Comment on above: Performed By: #### L 500.4050, L500.4100, [id number], L100.0100 ####[facility] [address] [place], [address] CO2 [Moles/Vol] 27.3 mmol/L Normal 21.0-32.0 [facility] Comment on above: Performed By: #### L 500.4050, L500.4100, [id number], L100.0100 ####[facility] [address] [place], [address] Creatinine [Mass/Vol] 0.85 mg/dL Normal 0.70-1.20 [facility] Comment on above: Performed By: #### L 500.4050, L500.4100, [id number], L100.0100 ####[facility] [address] [place], [address] GAP 13 Normal 5-15 [facility] Comment on above: Performed By: #### L 500.4050, L500.4100, [id number], L100.0100 ####[facility] [address] [place], [address] GFR/1.73 sq M.predicted among non-blacks MDRD (S/P/Bld) [Vol rate/Area] 85 mL/min/{1.73_m2} Normal >60 [facility] Comment on above: Result Comment: mL/m in/1.73m2 CKD-EPI Creatinine Equation (2020) Performed By: #### L 500.4050, L500.4100, [id number], L100.0100 ####[facility] [address] [place], [address] Globulin (S) [Mass/Vol] 3.0 g/dL Normal 2.2-4.2 [facility] Comment on above: Performed By: #### L 500.4050, L500.4100, [id number], L100.0100 ####[facility] [address] [place], [address] Glucose [Mass/Vol] 101 mg/dL High 70-99 [facility] Comment on above: Performed By: #### L 500.4050, L500.4100, [id number], L100.0100 ####[facility] [address] [place] [place], [address] Potassium [Moles/Vol] 3.7 mmol/L Normal 3.3-5.1 [facility] Comment on above: Performed By: #### L 500.4050, L500.4100, [id number], L100.0100 ####[facility] [address] [place], [address] Sodium [Moles/Vol] 140 mmol/L Normal 133-145 [facility] Comment on above: Performed By: #### L 500.4050, L500.4100, [id number], L100.0100 ####[facility] [address] [place] [place], [address] T PROT 7.3 g/dL Normal 5.9-8.4 [facility] Comment on above: Performed By: #### L 500.4050, L500.4100, [id number], L100.0100 ####[facility] [address] [place], [address] Urea nitrogen [Mass/Vol] 14 mg/dL Normal 4-19 [facility] Comment on above: Performed By: #### L 500.4050, L500.4100, [id number], L100.0100 ####[facility] [address] [place], [place], [address] Eosinophil percentageOrdered By: Radha Patrick on 02-12-2025 Eosinophils/100 WBC (Bld) 1.8 % 0-5 [facility] Erythrocyte distribution wid th ratioOrdered By: Radha Patrick on 02-12-2025 Erythrocyte distribution width (RBC) [Ratio] 13.0 % 11.6-14.6 [facility] Erythrocyte distribution wid th standard deviationOrdered By: Radha Patrick on 02-12-2025 Erythrocyte distribution width (RBC) [Ratio] 42.8 fl 35.1-43.9 [facility] Glomerular filtration rate ( GFR) estimation/1.73 sq m using serum, plasma, or whole bOrdered By: Radha Patrick on 02-12-2025 GFR/1.73 sq M.predicted among non-blacks MDRD (S/P/Bld) [Vol rate/Area] 85 mL/min/{1.73_m2} >60 [facility] Comment on above: mL/min/1.73m2 CKD-EP I Creatinine Equation (2020) HIP, UNI W/ Pelvis 2-3 Views on 02-12-2025 HIP, UNI W/ Pelvis 2-3 Views [facility] Imaging Services [address] [place], [place] [address] HIP, UNI W/ Pelvis 2-3 Views MR#: [id number] Acct: [id number] Name: GUERLINE CHAMBERLAIN Rep #: [id number] : 1975 F 49 From: Jermain Tejada MD PCP: Dr. Radha Patrick MD Status: REG CLI Study: HIP, UNI W/ Pelvis 2-3 Views Date of Exam: Exam# [id number] Ordering Dr: Radah Patrick MD EXAM: XR Right Hip With Pelvis When Performed, 2 or 3 Views CLINICAL INDICATION: PAIN TECHNIQUE: Two or three views of the right hip with pelvis when performed. COMPARISON: No relevant prior studies available. FINDINGS: BONES/JOINTS: Mild degenerative changes of the right hip joint. No dislocation. No acute fracture. SOFT TISSUES: Unremarkable. RAD/HIP, UNI W/ Pelvis 2-3 Views IMPRESSION: No acute fracture. Reading Location: [id number] CC: Dr. Radha Patrick MD Supplier Quality Engineering Manager: Signed Normal [facility] Hematocrit Auto (Bld) [Volum e fraction]Ordered By: Radha Patrick on 02-12-2025 Hematocrit (Bld) [Volume fraction] 42.2 % 37-47 [facility] Hemoglobin measurementOrdere d By: Radha Patrick on 02-12-2025 Hemoglobin (Bld) [Mass/Vol] 13.8 g/dL 12.0-15.0 [facility] Immature granulocytes/100 WB C Auto (Bld)Ordered By: Radha Patrick on 02-12-2025 Immature granulocytes/100 WBC (Bld) 0.300 % 0.0-0.9 [facility] Comment on above: IG% - Immature Granu locytes (promyelocytes, myelocytes and metamyelocytes) > 1% indicates that a LEFT SHIFT is Present. LDL calc ser/plasOrdered By: Radha Patrick on 02-12-2025 Cholesterol in LDL [Mass/Vol] 146 mg/dL [facility] Comment on above: Ooztcyrjdn=861-618 m g/dL & Higher Fwjm=134 mg/dL or greater Laboratory - Chemistry and C hemistry - challengeOrdered By: Radha Patrick on 02-12-2025 AST [Catalytic activity/Vol] 27 U/L <32 [facility] Lipid Profileon 02-12-2025 CHOL:HDL 4.78 Normal [facility] Comment on above: Performed By: #### L 500.4050, L500.4100, L501.9520, L100.0100 ####[facility] [address] [place], [place], [id number] Cholesterol [Mass/Vol] 225 mg/dL High <=200 [facility] Comment on above: Result Comment: Chol esterol level, Desirable <200 mg/dL Borderline high cholesterol 200-239 mg/dL High cholesterol >=240 mg/dL Recommendations of the NCEP Adult Treatment Panel for the following risk-cutoff thresholds for the [place] population. Performed By: #### L 500.4050, L500.4100, L501.9520, L100.0100 ####[facility] [address] [place], [address] Cholesterol in HDL [Mass/Vol] 47 mg/dL Normal [facility] Comment on above: Result Comment: Maribel onal Cholesterol Education Program (NCEP) guidelines: <40 mg/dL: Low HDL-cholesterol (major risk factor for CHD) >= 60 mg/dL: High HDL-cholesterol (negative risk factor for CHD) HDL-cholesterol is affected by a number of factors, e.g. smoking, exercise, hormones, sex and age. Performed By: #### L 500.4050, L500.4100, L501.9520, L100.0100 ####[facility] [address] [place], [address] Cholesterol in LDL [Mass/Vol] 146 mg/dL Normal [facility] Comment on above: Result Comment: Bord gtmkkx=918-169 mg/dL Higher Fgdp=244 mg/dL or greater Performed By: #### L 500.4050, L500.4100, L501.9520, L100.0100 ####[facility] [address] [place], [address] Cholesterol in VLDL [Mass/Vol] 32 mg/dL Normal 5-40 [facility] Comment on above: Performed By: #### L 500.4050, L500.4100, L501.9520, L100.0100 ####[facility] [address] [place], [address] Triglyceride [Mass/Vol] 161 mg/dL Normal [facility] Comment on above: Result Comment: The drugs N-Acetylcysteine and Metamizole may falsely depress this assay. Normal range: <150 mg/dL Borderline High: 150-199 mg/dL High: 200-499 mg/dL Very High: >500 mg/dL Performed By: #### L 500.4050, L500.4100, L501.9520, L100.0100 ####[facility] [address] [place], [place], [id number] MCV (mean corpuscular volume ) determinationOrdered By: Radha Patrick on 02-12-2025 MCV (RBC) [Entitic vol] 90.8 fL 81-99 [facility] Mean corpuscular hemoglobin (MCH) determinationOrdered By: Radha Patrick on 02-12-2025 MCH (RBC) [Entitic mass] 29.7 pg 27.0-32.0 [facility] Mean corpuscular hemoglobin concentration (MCHC) determinationOrdered By: Radha Patrick on 02-12-2025 MCHC (RBC) [Mass/Vol] 32.7 g/dL 32-36 [facility] Mean platelet volume determi nationOrdered By: Radha Patrick on 02-12-2025 Platelet mean volume (Bld) [Entitic vol] 9.9 fL 6.2-12.0 [facility] Monocyte percentageOrdered B y: Radha Patrick on 02-12-2025 Monocytes/100 WBC (Bld) 10.8 % High 0-10 [facility] Neutrophil percentageOrdered By: Radha Patrick on 02-12-2025 Neutrophils/100 WBC (Bld) 50.1 % 47-70 [facility] Nucleated red blood cell per centageOrdered By: Radha Patrick on 02-12-2025 Nucleated RBC/100 WBC (Bld) [Ratio] 0 % 0-5 [facility] Platelet countOrdered By: Maycol Patrick on 02-12-2025 Platelets (Bld) [#/Vol] 347 10*3/uL 150-450 [facility] Potassium measurement (mass/ volume)Ordered By: Radha Patrick on 02-12-2025 Potassium (Unsp spec) [Mass/Vol] 3.7 mmol/L 3.3-5.1 [facility] RBC Auto (Bld) [#/Vol]Ordere d By: Radha Patrick on 02-12-2025 RBC (Bld) [#/Vol] 4.65 10*6/uL 4.2-5.4 [facility] Screening total cholesterol/ high density lipoprotein (HDL) cholesterol ratioOrdered By: Radha Patrick on 02-12-2025 Cholesterol.total/Chol esterol in HDL [Mass ratio] 4.78 {ratio} [facility] Serum creatinine measurement (mass/volume)Ordered By: Radha Patrick on 02-12-2025 Creatinine [Mass/Vol] 0.85 mg/dL 0.70-1.20 [facility] Serum globulin measurementOr dered By: Radha Patrick on 02-12-2025 Globulin (S) [Mass/Vol] 3.0 g/dL 2.2-4.2 [facility] Serum glucose measurement (m ass/volume)Ordered By: Radha Patrick on 02-12-2025 Glucose [Mass/Vol] 101 mg/dL High 70-99 [facility] Serum or plasma alanine wayne otransferase (ALT) measurementOrdered By: Radha Patrick on 02-12-2025 ALT [Catalytic activity/Vol] 38 U/L High <35 [facility] Serum or plasma albumin shelli urement (mass/volume)Ordered By: Radha Patrick on 02-12-2025 Albumin [Mass/Vol] 4.3 g/dL 3.5-5.0 [facility] Serum or plasma albumin/glob ulin mass ratioOrdered By: Radha Patrick on 02-12-2025 Albumin/Globulin [Mass ratio] 1.4 {ratio} 0.9-2.4 [facility] Serum or plasma alkaline chelsea sphatase measurementOrdered By: Radha aPtrick on 02-12-2025 ALP [Catalytic activity/Vol] 70 U/L 35-104 [facility] Serum or plasma calcium shelli urement (mass/volume)Ordered By: Radha Patrick on 02-12-2025 Calcium [Mass/Vol] 9.6 mg/dL 7.6-11.0 [facility] Serum or plasma cholesterol in HDL measurement (mass/volume)Ordered By: Radha Patrick on 02-12-2025 Cholesterol in HDL [Mass/Vol] 47 mg/dL >40 [facility] Comment on above: National Cholesterol Education Program (NCEP) guidelines:<40 mg/dL: Low HDL-cholesterol (major risk factor for CHD)>= 60 mg/dL: High HDL-cholesterol (negative risk factor for CHD)HDL-cholesterol is affected by a number of factors, e.g. smoking, exercise, hormones, sex and age. Serum or plasma cholesterol measurement (mass/volume)Ordered By: Radha Patrick on 02-12-2025 Cholesterol [Mass/Vol] 225 mg/dL High <201 [facility] Comment on above: Cholesterol level, D esirable <200 mg/dLBorderline high cholesterol 200-239 mg/dLHigh cholesterol >=240 mg/dLRecommendations of the NCEP Adult Treatment Panel for the following risk-cutoff thresholds for the [place] population. Serum or plasma urea nitroge n measurement (mass/volume)Ordered By: Radha Patrick on 02-12-2025 Urea nitrogen [Mass/Vol] 14 mg/dL 4-19 [facility] Sodium levelOrdered By: Coco Patrick on 02-12-2025 Sodium [Moles/Vol] 140 mmol/L 133-145 [facility] TSH DL <= 0.005 mIU/L QnOrde red By: Radha Patrick on 02-12-2025 TSH Qn 2.830 uIU/mL 0.300-4.20 0 [facility] Thyroid Stim Hormone (TSH)on 02-12-2025 TSH 2.830 uIU/mL Normal 0.300-4.20 0 [facility] Comment on above: Performed By: #### L 500.4050, L500.4100, L501.9520, L100.0100 ####[facility] [address] [place], [place], [id number] Total proteinOrdered By: Hector Patrick on 02-12-2025 Protein [Mass/Vol] 7.3 g/dL 5.9-8.4 [facility] Triglycerides measurementOrd ered By: Radha Patrick on 02-12-2025 Triglyceride [Mass/Vol] 161 mg/dL <199 [facility] Comment on above: The drugs N-Acetylcy steine and Metamizole may falsely depress this assay. Normal range: <150 mg/dLBorderline High: 150-199 mg/dLHigh: 200-499 mg/dLVery High: >500 mg/dL White blood cell (WBC) count Ordered By: Radha Patrick on 02-12-2025 WBC (Bld) [#/Vol] 7.3 10*3/uL 4.4-11.0 [facility] Urine Cultureon 01-28-2025 [facility] Escherichia coli [place] Count >100,000 Escherichia coli: REACTION Ampicillin Islt SANJAY >=32 Ampicillin+Sulbac Islt SANJAY 4 S Cefepime Islt SANJAY <=0.12 S cefTRIAXone Islt SANJAY <=0.25 S Ciprofloxacin Islt SANJAY <=0.06 S B-Lactamase Extended Susc Islt NEG Gentamicin Islt SANJAY <=1 S levoFLOXacin Islt SANJAY <=0.12 S Meropenem Islt SANJAY <=0.25 S Nitrofurantoin Islt SANJAY <=16 S Pip+Tazo Islt SANJAY <=4 S TMP SMX Islt SANJAY <=20 S Normal [facility] Comment on above: Performed By: #### M 100.2200 #### [facility] [address] [place], [address] Laboratory - Chemistry and C hemistry - challengeOrdered By: Cole Rodarte on 01-26-2025 Bilirubin Ql (U) Negative [facility] Glucose Ql (U) Negative [facility] Ketones Ql (U) Negative [facility] pH (U) 7.5 [pH] [facility] Specific gravity (U) [Rel density] 1.010 [facility] Urobilinogen (U) [Mass/Vol] 0.4946371 mg/dL [facility] Laboratory - Hematology and Cell countsOrdered By: Cole Rodarte on 01-26-2025 Hemoglobin Ql (U) Hemolyzed [facility] Laboratory - Specimen inform ationOrdered By: Cole Rodarte on 01-26-2025 Clarity (U) Cloudy [facility] Color (U) Arely [facility] Laboratory - UrinalysisOrder ed By: Cole Rodarte on 01-26-2025 Nitrite Ql (U) Positive [facility] Protein Ql (U) 2+ [facility] No Panel InformationOrdered By: Cole Rodarte on 01-26-2025 Urine Leukocytes Positive [facility] Urine Non-Hemolyzed Blood Large [facility] Urgent Care Visit Reporton 0 01-26-2025 Urgent Care Visit Report [facility] [address] , [address] [place] [address] OFFICE VISIT Date of Service: 01/26/25 MR#: [id number] Acct: [id number] Name: GUERLINE CHAMBERLAIN Rep #: [id number] : 1975 Provider: MALIA Kelly Age/Sex: 49/F Location: [facility] Status: Signed Intake Vital Signs 01/06/25 13:02 01/26/25 07:50 Height 5 ft 3 in 5 ft 3 in Weight: 182 lb 182 lb BMI 32.2 32.2 BP 123/87 H 122/80 H Position Sitting Pulse 103 H Temp 98.0 F Temp Source Oral Pulse Oximetry (%) 97 Oxygen Delivery Method room air Intake Visit Reasons: CONCERN FOR UTI Accompanied by: Self Allergies No Known Allergies Allergy (Verified 01/26/25 07:41) Medications ???Medication ???Instructions ???Recorded ???Confirmed ???Type cholecalciferol (vitamin D3) 25 25 mcg PO QDAY 12/09/24 01/26/25 H istory mcg (1,000 unit) capsule folic acid 400 mcg tablet 0.4 mg PO QDAY 12/09/24 01/26/25 H istory magnesium oxide 500 mg capsule 500 mg PO QDAY 12/09/24 01/26/25 H istory mecobalamin (vitamin B12) 2,500 mcg PO 12/09/24 01/26/25 History mcg chewable tablet meloxicam 15 mg tablet 15 mg PO QDAY 12/09/24 01/26/25 Hi story olmesartan 40 mg-amlodipine 10 1 tab PO QDAY 12/09/24 01/26/25 Hi story mg-hydrochlorothiazide 12.5 mg tablet pantoprazole 40 mg tablet,delayed 40 mg PO QDAY 12/09/24 01/26/25 H istory release phentermine 37.5 mg capsule 37.5 mg PO QDAY 12/09/24 01/26/25 History estradiol 0.0375 mg/24 hr 1 patch transdermal 2XW #8 ea 12/2401/26/25 Rx semiweekly transdermal patch progesterone micronized 100 mg 100 mg PO QAM #30 caps 01/06/25 Rx capsule (Prometrium) nitrofurantoin 100 mg PO Q12H 5 days #10 caps 11/1701/26/25 Rx monohydrate/macrocrystals 100 mg capsule (Macrobid) Nurse's Note: Patient here for concern for a UTI. Patient has frequency, blood and painful urination since last night. PFSH Medical History H/O recurrent pneumonia Osteoarthritis Chronic migraine History of chest pain Hypertension Chest pain Family history of ischemic heart disease Surgical History History of History of nasal surgery History of tubal ligation (04/2007) History of tonsillectomy History of endometrial ablation Family History Father CAD (coronary artery disease) Myocardial infarction In his 40's Grandfather CAD (coronary artery disease) S/P CABG (coronary artery bypass graft) Myocardial infarction Grandfather CAD (coronary artery disease) Myocardial infarction S/P CABG (coronary artery bypass graft) Social History Smoking Status: Former smoker quit date: 12/13/13 pack-years: 8 alcohol intake: current alcohol intake frequency: holidays/special occasions only substance use type: does not use what type of physical activity do you participate in: weight training frequency: 1-2 times per week HPI HPI Details: GUERLINE CHAMBERLAIN, is a 49 F who presents to the office today for [facility] for less than 24 hour history of dysuria and urinary frequency with suprapubic pressure. No complaints of fever, chills, sweats, lightheadedness/dizziness, nausea/vomiting, or chest pain/shortness of breath/dyspnea on exertion/back pain. No changes in color/ character of urine or stool. No [id number] products taken to assist. No other associated symptoms and no alleviating/aggravating factors. ROS Const Constitutional: No other (As above) Exam Const General: cooperative, healthy appearing and no acute distress Orientation: alert, awake and oriented x3 Chest Chest palpation inspection: normal inspection of the chest Resp Effort Inspection: normal respiratory effort and able to speak in complete sentences Cardio Rate: regular rate Pulses: radial pulses present GI Inspection: normal to inspection Palpation: soft and tender suprapubic (Patient describes upon self-palpation) General: No CVA tenderness Skin General: no rashes or lesions noted Neuro General: patient alert, patient awake and patient oriented x3 Cognition: normal cognition Speech: speech normal Psych Appearance: grossly normal Mental Status: mental status grossly normal Mood: congruent mood Affect: normal affect Speech and Movement: speech and movement normal Attitude: cooperative Diagnoses Urinary tract infection N39.0 Assessment and Plan Assessment and Plan (1) Urinary tract infection: Status: Acute Plan: See POC results; urine sent to lab for C/S. Macrobid as prescribed today. Supportive measures as instructed (more content not included)... Normal [facility] Urine cultureOrdered By: Agustin Rodarte on 01-26-2025 Bacteria identified Cx Nom (U) Escherichia coli Abnormal [facility] Estradiolon 01-06-2025 ESTRADIOL 7.0 pg/mL Normal [facility] Comment on above: Result Comment: FEMA LES ADULT FEMALE: Premenopausal: 15-350 pg/mL(E2 levels vary widely through the menstrual cycle) Postmenopausal: <10 pg/mL OSCAR STAGES MEAN AGE REFERENCE RANGES Stage I(>14 days and prepubertal) 7.1 years Undetectable-20 pg/mLL Stage II 10.5 years Undetectable-24 pg/mL Stage III 11.6 years Undetectable-60 pg/mL Stage IV 12.3 years 15-85 pg/mL Stage V 14.5 years 15-350 pg/mL Puberty onset (transition from Oscar stage I to Oscar stage II) occurs for girls at a median age of 10.5 (/- 2) years. There is evidence that it may occur up to 1 year earlier in obese girls and in girls. Progression through Oscar stages is variable. Oscar stage V (adult) should be reached by age 18. Performed By: #### L 3300.1750, L3100.5125 #### [facility] [address] [place], [address] Follicle Stimulating Hormone on 01-06-2025 FSH 62.3 mIU/mL Normal [facility] Comment on above: Result Comment: FEMA LE: Follicular: 1.4 - 18.1 mIU/mL Midcycle: 3.4 - 33.4 mIU/mL Luteal: 1.5 - 9.1 mIU/mL Post Menopause: 23.0 - 116.3 mIU/mL MALE: 1.4 - 18.1 mIU/mL NORMAL REFERENCE RANGES FEMALE FOLLICULAR 2.3 - 12.6 mIU/mL MID-CYCLE PEAK 5.2 - 17.5 mIU/mL LUTEAL 1.7 - 12.9 mIU/mL POST-MENOPAUSAL ON MHT 5.9 - 72.8 mIU/mL NOT ON MHT 12.7 - 132.2 mlU/mL MALE 0.7 - 10.8 mIU/mL Performed By: #### L 3300.1750, L3100.5125 #### [facility] [address] 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 Is patient in pain?: No Allergies No Known Allergies Allergy (Verified 01/06/25 13:05) Medications ???Medication ???Instructions ???Recorded ???Confirmed ???Type cholecalciferol (vitamin D3) 25 25 mcg PO QDAY 12/09/24 01/06/25 H istory mcg (1,000 unit) capsule folic acid 400 mcg tablet 0.4 mg PO QDAY 12/09/24 01/06/25 H istory magnesium oxide 500 mg capsule 500 mg PO QDAY 12/09/24 01/06/25 H istory mecobalamin (vitamin B12) 2,500 mcg PO 12/09/24 01/06/25 History mcg chewable tablet meloxicam 15 mg tablet 15 mg PO QDAY 12/09/24 01/06/25 Hi story olmesartan 40 mg-amlodipine 10 1 tab PO QDAY 12/09/24 01/06/25 Hi story mg-hydrochlorothiazide 12.5 mg tablet pantoprazole 40 mg tablet,delayed 40 mg PO QDAY 12/09/24 01/06/25 H istory release phentermine 37.5 mg capsule 37.5 mg PO QDAY 12/09/24 01/06/25 History estradiol 0.0375 mg/24 hr 1 patch transdermal 2XW #8 ea 12/2401/06/25 Rx semiweekly transdermal patch progesterone micronized 100 mg 100 mg PO QAM #30 caps 01/06/25 Rx capsule (Prometrium) PFSH Medical History H/O recurrent pneumonia Osteoarthritis Chronic migraine History of chest pain Hypertension Chest pain Family history of ischemic heart disease Surgical History History of History of nasal surgery History of tubal ligation (04/2007) History of tonsillectomy History of endometrial ablation Family History Father CAD (coronary artery disease) Myocardial infarction In his 40's Grandfather CAD (coronary artery disease) S/P CABG (coronary artery bypass graft) Myocardial infarction Grandfather CAD (coronary artery disease) Myocardial infarction S/P CABG (coronary artery bypass graft) Social History (Reviewed 01/06/25 @ 13:05 by Sharon Pickett Smoking Status: Former smoker quit date: 12/13/13 pack-years: 8 alcohol intake: current alcohol intake frequency: holidays/special occasions only substance use type: does not use what type of physical activity do you participate in: weight training frequency: 1-2 times per week HPI HOROMONE THERAPY Details: GUERLINE CHAMBERLAIN is a 49 year old who presents to establish and obtain refills on her HRT. She was started on this a year ago with Dr. Swanson through [facility]. She reports she had ablation completed prior to age 39. She then started with hot flashes, night sweats, irritability and has always dealt with this until last year where was given help with HRT. She is currently using patch estradiol as well as 100mg progesterone. Her most recent labs show and FSH 63 and Estradiol of 15 from 11/2023. She reports no vaginal bleeding. She is UTD on her mammogram and no family history of breast Cancer. Female Reproductive History Menopausal Symptoms: Yes hot flashes and Yes night sweats ROS Const Constitutional: Reports fatigue and night sweats; Denies chills, fever(s), headache(s), weight gain or weight loss Eyes Eyes: Denies change in vision ENT ENT: Denies dizziness Cardio Card: Denies chest pain Resp Resp: Denies cough or dyspnea GI GI: Denies abdominal pain, constipation, nausea or vomiting : Reports hot flashes and vaginal dryness; Denies nipple discharge, pelvic pain, vaginal discharge, vaginal odor or vaginal pruritus Skin Skin/Breast: Denies breast mass, breast pain, breast skin changes or nipple discharge Neuro Neuro: Denies dizziness Psych Psych: Reports mood swings (prior to HRT); Denies anxiety or depression Endo Endo: Denies cold intolerance, excessive sweating or heat intolerance Exam Const General: cooperative, healthy appearing, comfortable and no acute distress Orientation: alert HENMT Head: normal to inspection and normocephalic Eyes General: appearance normal, both eyes and all related structures Resp Effort Inspection: normal respiratory effort Auscultation: clear to auscultation bilaterally Cardio Rate: regular rate Rhythm: regular rhythm Heart Sounds: S1 normal and S2 normal Musc Other: gross motor intact no deficits, full bilateral strength Skin General: no rashes or lesions noted Neuro Mo (more content not included)... Normal [facility] Serum or plasma estradiol me asurement after follitropin dose (mass/volume)Ordered By: Yamilex Welsh on 01-06-2025 E2 post dose follitropin [Mass/Vol] 7.0 pg/mL [facility] Comment on above: FEMALES ADULT FEMALE : Premenopausal: 15-350 pg/mL(E2 levels vary widely through the menstrual cycle) Postmenopausal: <10 pg/mL OSCAR STAGES MEAN AGE REFERENCE RANGES Stage I(>14 days and prepubertal) 7.1 years Undetectable-20 pg/mLL Stage II 10.5 years Undetectable-24 pg/mL Stage III 11.6 years Undetectable-60 pg/mL Stage IV 12.3 years 15-85 pg/mL Stage V 14.5 years 15-350 pg/mL Puberty onset (transition from Oscar stage I to Oscar stage II) occurs for girls at a median age of 10.5 (/- 2) years. There is evidence that it may occur up to 1 year earlier in obese girls and in girls.Progression through Oscar stages is variable. Oscar stage V (adult) should be reached by age 18. Plastic Surgery Visit Report on 01-01-2025 Plastic Surgery Visit Report [facility] Plastic Reconstructive Surgery [address], [address] [place] [address] OFFICE VISIT Date of Service: 01/01/25 MR#: [id number] Acct: [id number] Name: GUERLINE CHAMBERLAIN Rep #: [id number] : 1975 Provider: Dr. Jr Oviedo MD Age/Sex: 49/F Location: [facility] Status: Signed Intake Vital Signs 01/01/25 10:45 Height 5 ft 3 in Weight: 181 lb BMI 32.1 BP 122/85 H Blood Pressure Location Rt brachial Position Sitting Respiration 18 Pulse 105 H Pulse Source Monitor Pulse Oximetry (%) 96 Oxygen Delivery Method room air Intake Visit Reasons: COSMETIC CONSULT Chief Complaint: cosmetic consult Is patient in pain?: No Allergies No Known Allergies Allergy (Verified 01/01/25 10:45) Medications ???Medication ???Instructions ???Recorded ???Confirmed ???Type cholecalciferol (vitamin D3) 25 25 mcg PO QDAY 12/09/24 01/01/25 H istory mcg (1,000 unit) capsule estradiol 0.025 mg/24 hr 1 patch transdermal 2XW 12/09/24 0 01/01/25 History semiweekly transdermal patch folic acid 400 mcg tablet 0.4 mg PO QDAY 12/09/24 01/01/25 H istory magnesium oxide 500 mg capsule 500 mg PO QDAY 12/09/24 01/01/25 H istory mecobalamin (vitamin B12) 2,500 mcg PO 12/09/24 01/01/25 History mcg chewable tablet meloxicam 15 mg tablet 15 mg PO QDAY 12/09/24 01/01/25 Hi story olmesartan 40 mg-amlodipine 10 1 tab PO QDAY 12/09/24 01/01/25 Hi story mg-hydrochlorothiazide 12.5 mg tablet pantoprazole 40 mg tablet,delayed 40 mg PO QDAY 12/09/24 01/01/25 H istory release phentermine 37.5 mg capsule 37.5 mg PO QDAY 12/09/24 01/01/25 History progesterone micronized 100 mg 100 mg PO QAM 12/09/24 01/01/25 Hi story capsule (Prometrium) PFSH Medical History H/O recurrent pneumonia Osteoarthritis Chronic migraine History of chest pain Hypertension Chest pain Family history of ischemic heart disease Surgical History History of History of nasal surgery History of tubal ligation (04/2007) History of tonsillectomy History of endometrial ablation Family History Father CAD (coronary artery disease) Myocardial infarction In his 40's Grandfather CAD (coronary artery disease) S/P CABG (coronary artery bypass graft) Myocardial infarction Grandfather CAD (coronary artery disease) Myocardial infarction S/P CABG (coronary artery bypass graft) Social History Smoking Status: Former smoker quit date: 12/13/13 pack-years: 8 alcohol intake: current alcohol intake frequency: holidays/special occasions only substance use type: does not use what type of physical activity do you participate in: weight training frequency: 1-2 times per week HPI 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 She has been losing weight and recently stabilized her weight over the past 2 months at 180 pounds. She has been losing weight with diet and exercise. Breast Reduction Pt c/o: [Macromastia] [Intertrigo] [Shoulder Pain] [Shoulder Grooves]??? [Upper back pain] [Poor Posture] ? Physical therapy for back pain: [Y ] ??? Chiropractic treatment: [N ] ??? Home exercise: [Y ]? NSAID use:[N ]? Skin ulceration: [N ] ??? Topical or oral antifungal agents: [N ] ??? Participation in medically supervised weight loss program: [N ] ??? More info: Pt has no significant past medical history. Pt denies any personal or family history of bleeding or blood clots. Pt is a nonsmoker. ??? Prior breast surgeries: [N ] PAIN: Reports persistent aching pain of upper back worsened by movements and worse at the end of the day. Improved by rest and laying down. ??? BRA SIZE: [ D] ??? DESIRED??? SIZE: [C ] ??? OB HISTORY: PARA: [2 ] :??? [Y ] PLAN FOR FUTURE PREGNANCIES: [N ] ??? HISTORY OF BREAST DISEASE: [N ] PRIOR MAMMOGRAM: [Y ] FAMILY HISTORY OF BREAST CANCER: [ N] ROS General General: Yes good health; No fatigue, fever(s) or weight loss HENMT HENMT: No rhinitis, sore throat/mouth sore, nasal congestion, contacts or glaucoma Endo Endocrine: No thyroid disease, polydipsia, heat intolerance, cold intolerance, hepatitis or excessive urine Skin Skin: No Bleeding, bruising, changing moles or suspicious lesion Musc Musculoskeletal: Yes joint pain, back pain and osteoarthritis; No joint stiffness, muscle weakness or Muscle aches/ myalgia Neuro Neurological: No headache(s), No lightheadedness and No numb (more content not included)... Normal [facility] Thyroidon 09-22-2024 Thyroid [facility] [address] [place], [place] [id number] Thyroid MR#: [id number] Acct: [id number] Name: GUERLINE CHAMBERLAIN Rep #: [id number] : 1975 F 48 From: Scott ward MD PCP: Dr. Radha Patrick MD Status: REG CLI Study: Thyroid Date of Exam: 09/22/24 Exam# [id number] Ordering Dr: Radha Patrick MD PROCEDURE: Thyroid ultrasound REASON FOR EXAM: Swollen lymph node. TECHNIQUE: Thyroid ultrasound COMPARISON: None. FINDINGS: RIGHT LOBE: The right lobe of the thyroid gland measures 4 cm x 1.9 cm x 1.7 cm. There is a homogeneous echotexture. There are no demonstrated solid, cystic or complex lesions. LEFT LOBE: The left lobe of the thyroid gland measures 3.9 cm x 1.5 cm x 1.9 cm. There is a homogeneous echotexture. There are no demonstrated solid, cystic or complex lesions. ISTHMUS: The isthmus measures 4 mm. 8 mm x 4 mm x 2 mm benign-appearing right-sided lymph node. US/Thyroid IMPRESSION: NORMAL THYROID ULTRASOUND 8 mm x 4 mm x 2 mm right cervical lymph node. Reading Location: [place] [address] CC: Dr. Radha Patrick MD Supplier Quality Engineering Manager: Signed Normal [facility] SCRN MAMM (CAD)W/JACQUELINE BILATo n 04-20-2024 SCRN MAMM (CAD)W/JACQUELINE BILAT [facility] Imaging Services [address] [place], [place] [id number] SCRN MAMM (CAD)W/JACQUELINE BILAT MR#: [id number] Acct: [id number] Name: GUERLINE CHAMBERLAIN Rep #: [id number] : 1975 F 48 From: Scott ward MD PCP: Dr. Radha Patrick MD Status: REG CLI Study: SCRN MAMM (CAD)W/JACQUELINE BILAT Date of Exam: 03/27 02/16 Exam# [id number] Ordering Dr: Itzel Berg CNM [id number] MAMMOGRAPHY - BILATERAL SCREENING REASON FOR EXAM: Female, 48 years old. Routine annual screening examination. PERTINENT HISTORY: Non-contributory. TECHNIQUE: Digital bilateral breast jacqueline (3D mammographic acquisition) in the CC and MLO projections. 2-D mediolateral oblique (MLO) and craniocaudad (CC) views of both breasts were obtained. CAD: Full Field Digital Mammography with Computer Added Detection was performed. COMPARISON: Comparison is made with prior study April 16, 2023 and March 02, 2022. FINDINGS: Breast Composition: The breasts are heterogeneously dense, which may obscure small masses. There are no dominant masses or suspicious calcifications. Stable small benign-appearing bilateral axillary lymph nodes. No other significant abnormalities are identified. There has been no significant change since the prior study. BI/SCRN MAMM (CAD)W/JACQUELINE BILAT IMPRESSION: Stable bilateral screening mammogram. Yearly follow-up mammogram recommended. (A) ASSESSMENT CATEGORY: BIRADS Category 2: Benign. A letter regarding these results will be sent to the patient by the facility within 30 days. Approximately 10% of breast cancers are not detected by mammography. A normal mammogram should not delay biopsy of a clinically suspicious abnormality. [id number] Electronically Signed: Scott Pepe MD at 10:45 EDT , CC: KLAUDIA Berg; Dr. Radha Patrick MD Supplier Quality Engineering Manager: Signed Normal [facility] Elevator Installer Cytology Reporton 2023 Elevator Installer Cytology Report . Pathology Reports Accession: Collected Date/Time: Received Date/Time: Pathologist: [id number] 12/04/2023 11:01 EDT 12/04/2023 18:00 EDT Elevator Installer Cytology Report SPECIMEN: Specimen Description: Liquid Prep w/ HPV Specimen: Cervical Screening or Diagnostic: Screening RELEVANT HISTORY: LMP: 10yrs Other clinical information: s/p uterine ablation SPECIMEN ADEQUACY: SATISFACTORY FOR EVALUATION Endocervical/Transformation al zone component present INTERPRETATION/RESULTS: NEGATIVE FOR INTRAEPITHELIAL LESION OR MALIGNANCY HIGH RISK HPV TESTING: Event Code Result HPV Interp See Interp HPVN HPV Interp Text: High Risk HPV Typing: NEGATIVE HPV types 16, 18, 31, 33, 35, 39, 45, 51, 52, 56, 58, 59, 66 and 68 DNA were undetectable or below the pre-set threshold. The javed High-Risk HPV DNA Test is not intended for use as a screening device for Pap normal women under age 30 and is not intended to substitute for regular Pap screening. The javed High-Risk HPV DNA Test is designed to augment existing methods for the detection of cervical disease and should be used in conjunction with clinical information derived from other diagnostic and screening tests, physical examinations and full medical history in accordance with appropriate patient management procedures. NOTE: A negative result does not preclude the presence of HPV infection because results depend on adequate specimen collection, absence of inhibitors and sufficient DNA to be detected. As of: 12/13/23 08:50 EDT COMMENT: This Pap Test was successfully processed and evaluated with the assistance of the [employer] [facility] System. Pathology Reports Accession: Collected Date/Time: Received Date/Time: Pathologist: [id number] 12/04/2023 11:01 EDT 12/04/2023 18:00 EDT Electronically Signed by Pathology report verified by [facility] Screened by: DW Electronically signed by Corina Alva Sign-Out Date: 12/13/2023 09:01 Performing Lab: [facility], [address] [place] [address] Pathology Dept Disclaimer The Pap test is a screening test for cervical cancer. As evidenced by published data, it is subject to both inherent false negative and false positive results. Your patient's results should be interpreted in context with pertinent clinical history including gynecological examination. Normal [facility] ([place]) Basophil percentageOrdered B y: Itzel Berg on 12-12-2023 Glucose [Mass/Vol] 134 mg/dL 74-106 [facility] Comment on above: Fasting Glucose resu lt greater than or equal to 126 mg/dL suggests DIABETES MELLITUS per A.D.A. criteria. Hemoglobin (Bld) [Mass/Vol] 13.8 g/dL 12.0-15.0 [facility] WBC (Bld) [#/Vol] 6.3 10*3/uL 4.4-11.0 [facility] Determination of erythrocyte mean corpuscular volume (MCV)Ordered By: Itzel Berg on 12-12-2023 MCV (RBC) [Entitic vol] 89.9 fL 81-99 [facility] Erythrocyte distribution wid th ratioOrdered By: Itzel Berg on 12-12-2023 Erythrocyte distribution width (RBC) [Ratio] 13.3 % 11.6-14.6 [facility] Erythrocyte distribution wid th standard deviationOrdered By: Itzeldeven Berg on 12-12-2023 Erythrocyte distribution width (RBC) [Entitic vol] 44.3 fL 35.1-43.9 [facility] Hematocrit Auto (Bld) [Volum e fraction]Ordered By: Itzeldeven Berg on 12-12-2023 Hematocrit (Bld) [Volume fraction] 42.5 % 37-47 [facility] Laboratory - Hematology and Cell countsOrdered By: Itzel Berg on 12-12-2023 MCH (RBC) [Entitic mass] 29.2 pg 27.0-32.0 [facility] MCHC (RBC) [Mass/Vol] 32.5 g/dL 32-36 [facility] Platelet mean volume (Bld) [Entitic vol] 10.2 fL 6.2-12.0 [facility] Platelets (Bld) [#/Vol] 338 10*3/uL 150-450 [facility] No Panel InformationOrdered By: Itzel Berg on 12-12-2023 Estradiol (E2) Level 15.4 pg/mL [facility] Comment on above: NORMAL REFERENCE RAN GES FEMALE FOLLICULAR 21.4 - 164.8 pg/mL MID-CYCLE PEAK 49.9 - 367.2 pg/mL LUTEAL 40.2 - 259.0 pg/mL POST-MENOPAUSAL ON MHT <11.0 - 462.1 pg/mL NOT ON MHT <11.0 - 58.3 pg/mL MALE <11.0 - 52.5 pg/mL NOTE:[employer] HAS CONFIRMED THE DRUG FULVETRANT (FASLODEX) MAY CAUSE FALSELY ELEVATED ESTRADIOL RESULTS WHEN USING THIS TEST METHOD. IF PATIENT IS TAKING FULVESTRANT AN ALTERNATIVE METHOD SHOULD BE USED TO DETERMINE ESTRADIOL CONCENTRATION. Follicle Stimulating Hormone 63.2 mIU/mL [facility] Comment on above: NORMAL REFERENCE RAN GES FEMALE FOLLICULAR 2.3 - 12.6 mIU/mL MID-CYCLE PEAK 5.2 - 17.5 mIU/mL LUTEAL 1.7 - 12.9 mIU/mL POST-MENOPAUSAL ON MHT 5.9 - 72.8 mIU/mL NOT ON MHT 12.7 - 132.2 mlU/mL MALE 0.7 - 10.8 mIU/mL Insulin Level 232.8 mU/L 2.6-37.6 [facility] Miscellaneous Test See comment [facility] Comment on above: TEST RESULTS LIMITSI nhibin B, <7.0 pg/mL Early Follicular <261.0 Late Follicular <286.0 Periovulatory <189.0 MidLuteal <164.0 End Luteal <107.0 Post Menopausal < 17.0Inhibin B performed by [employer](TM) Enzyme Linked Immunoassaymethodology. Values obtained with different assay methods or kits cannot be used interchangeably. TESTING PERFORMED AT [facility]. ORIGINAL REPORT ON FILE IN LAB CONTAINS ADDITIONAL TEST SITE INFORMATION. Vitamin D 25-Hydroxy 13.4 ng/mL [facility] Comment on above: Vitamin D 25(OH) Sta tus Range Deficiency <20 ng/mL (50nmol/L) Insufficiency 20 - 30 ng/mL (50 - 75 nmol/L) Sufficiency 30 - 100 ng/mL (75 - 250 nmol/L) Toxicity >100 ng/mL (>250 nmol/L) RBC Auto (Bld) [#/Vol]Ordere d By: Itzel Berg on 12-12-2023 RBC (Bld) [#/Vol] 4.73 10*6/uL 4.2-5.4 [facility] Serum or plasma flecainide m easurement (mass/volume)Ordered By: Itzel Berg on 12-12-2023 Flecainide [Mass/Vol] < 0.015 ng/mL . [facility] Comment on above: For assays employing antibodies, the possibility exists forinterference by heterophile antibodies in the samples.11.Lambert Liriano Interferences in Immunoassays - still a threat. Clin. Chem. 2000; 46: 7621-2496.This test was developed and its performance characteristicsdetermined by [employer]. It has not been cleared or approvedby the Food and Drug Administration.Reference Range:Females 47 - 54y: <= 0.82Median <0.03AMH concentrations of >= 1.06 ng/mL is correlated with abetter response to ovarian stimulation, produced moreretrievable oocytes and higher odds of live accordingto Jose Eduardo et al. Fertility and Sterility. 2010:94:3057-3985. The current AMH test method correlates withthe study method with a slope of 0.94.Females at risk of ovarian hyperstimulation syndrome orpolycystic ovarian syndrome (PCOS) may exhibit elevatedserum AMH concentrations. AMH levels from PCOS patientsmay be 2 to 5 fold higher than age-appropriate referenceinterval values.Granulosa cell tumors of the ovary may secrete AMH alongwith other tumor markers. Elevated AMH is not specific formalignancy, and the assay should not be used exclusively todiagnose or exclude an AMH-secreting ovarian tumor.Performed at: [facility] [address] [id number] Director: Papa Chapman MD, Phone: [phone] Serum or plasma thyroid stim ulating hormone (TSH) measurement (units/volume)Ordered By: Itzel Berg on 12-12-2023 TSH Qn 0.87 uIU/mL 0.358-3.74 [facility] Whole blood hemoglobin A1c/t otal hemoglobin ratio (mass fraction)Ordered By: Itzel Berg on 12-12-2023 HbA1c (Bld) [Mass fraction] 5.5 % 3.8-5.6 [facility] Comment on above: Normal < 5.7 % Predi abetic 5.7 - 6.4 % Diabetic >or= 6.5 % Please note range changes. HPVon 12-09-2023 HPV Interp Normal See Interp HPVN [facility] ([place]) Comment on above: Order Comment: Order placed by AP_HPV_ORDER rule from [id number] Result Comment: High Risk HPV Typing: NEGATIVE HPV types 16, 18, 31, 33, 35, 39, 45, 51, 52, 56, 58, 59, 66 and 68 DNA were undetectable or below the pre-set threshold. The javed High-Risk HPV DNA Test is not intended for use as a screening device for Pap normal women under age 30 and is not intended to substitute for regular Pap screening. The javed High-Risk HPV DNA Test is designed to augment existing methods for the detection of cervical disease and should be used in conjunction with clinical information derived from other diagnostic and screening tests, physical examinations and full medical history in accordance with appropriate patient management procedures. NOTE: A negative result does not preclude the presence of HPV infection because results depend on adequate specimen collection, absence of inhibitors and sufficient DNA to be detected. See Interp HPVN Performed By: #### H PV #### [address] [address] HPV Source Cervix Normal [facility] ([place]) Comment on above: Order Comment: Order placed by AP_HPV_ORDER rule from [id number] Performed By: #### H PV #### [address] [address] Absolute lymphocyte countOrd ered By: Dr. Patrick on 06-20-2023 Lymphocytes Auto (Unsp spec) [#/Vol] 2.08 10*3/uL 0.83-4.51 [facility] Basophil percentageOrdered B y: Dr. Patrick on 02-12-2023 Basophils/100 WBC (Bld) 0.7 % 0-1 [facility] Bilirubin [Mass/Vol] 0.30 mg/dL 0.20-1.00 [facility] Comment on above: For patients on eltr ombopag therapy, use of Dimension Maben TBIL is not recommended. Chloride [Moles/Vol] 105 mmol/L 98-107 [facility] Eosinophils/100 WBC (Bld) 0.8 % 0-5 [facility] Glucose [Mass/Vol] 118 mg/dL 74-106 [facility] Comment on above: Fasting Glucose resu lt from 100 to 125 mg/dL suggests IMPAIRED HOMEOSTASIS per A.D.A. criteria. Neutrophils (Bld) [#/Vol] 4.8 10*3/uL 2.0-7.7 [facility] Neutrophils/100 WBC (Bld) 63.3 % 47-70 [facility] Potassium [Moles/Vol] 3.7 mmol/L 3.5-5.1 [facility] Protein [Mass/Vol] 8.2 g/dL 6.4-8.2 [facility] Sodium [Moles/Vol] 140 mmol/L 136-145 [facility] WBC (Bld) [#/Vol] 7.6 10*3/uL 4.4-11.0 [facility] Blood erythrocytes count (nu mber/volume)Ordered By: Dr. Patrick on 02-12-2023 RBC (Bld) [#/Vol] 4.94 10*6/uL 4.2-5.4 [facility] Blood hemoglobin measurement (mass/volume)Ordered By: Dr. Patrick on 02-12-2023 Hemoglobin (Bld) [Mass/Vol] 14.4 g/dL 12.0-15.0 [facility] Blood lymphocytes/100 leukoc ytesOrdered By: Dr. Patrick on 02-12-2023 Lymphocytes/100 WBC (Bld) 27.5 % 19-41 [facility] Blood monocytes/100 leukocyt esOrdered By: Dr. Patrick on 02-12-2023 Monocytes/100 WBC (Bld) 7.3 % 0-10 [facility] Blood platelet mean volumeOr dered By: Dr. Patrick on 02-12-2023 Platelet mean volume (Bld) [Entitic vol] 9.8 fL 6.2-12.0 [facility] Determination of erythrocyte mean corpuscular volume (MCV)Ordered By: Dr. Patrick on 02-12-2023 MCV (RBC) [Entitic vol] 91.7 fL 81-99 [facility] Hematocrit Auto (Bld) [Volum e fraction]Ordered By: Dr. Patrick on 02-12-2023 Hematocrit (Bld) [Volume fraction] 45.3 % 37-47 [facility] Laboratory - Chemistry and C hemistry - challengeOrdered By: Dr. Patrick on 02-12-2023 ALP [Catalytic activity/Vol] 84 U/L 45-117 [facility] ALT [Catalytic activity/Vol] 62 U/L 13-56 [facility] CO2 [Moles/Vol] 27.0 mmol/L 21.0-32.0 [facility] Globulin (S) [Mass/Vol] 4.0 g/dL 2.2-4.2 [facility] Urea nitrogen/Creatinine [Mass ratio] 11.1 mg/mg 10-20 [facility] Laboratory - Hematology and Cell countsOrdered By: Dr. Patrick on 02-12-2023 Erythrocyte distribution width (RBC) [Entitic vol] 44.5 fL 35.1-43.9 [facility] Erythrocyte distribution width (RBC) [Ratio] 13.1 % 11.6-14.6 [facility] Immature granulocytes/100 WBC (Bld) 0.400 % 0.0-0.9 [facility] Comment on above: IG% - Immature Granu locytes (promyelocytes, myelocytes and metamyelocytes) > 1% indicates that a LEFT SHIFT is Present. MCH (RBC) [Entitic mass] 29.1 pg 27.0-32.0 [facility] Nucleated RBC/100 WBC (Bld) [Ratio] 0 % 0-5 [facility] MCHC Auto (RBC) [Mass/Vol]Or dered By: Dr. Patrick on 02-12-2023 MCHC (RBC) [Mass/Vol] 31.8 g/dL 32-36 [facility] No Panel InformationOrdered By: Dr. Patrick on 02-12-2023 Estimated GFR (MDRD) Amer 86 mL/min >60 [facility] Comment on above: GFR Calc Estimated GFR (MDRD) Non-Af Amer 71 mL/min >60 [facility] Comment on above: Non- GFR Calc Platelets bldOrdered By: Dr. Patrick on 02-12-2023 Platelets (Bld) [#/Vol] 313 10*3/uL 150-450 [facility] Serum or plasma albumin shelli urement (mass/volume)Ordered By: Dr. Patrick on 02-12-2023 Albumin [Mass/Vol] 4.2 g/dL 3.2-5.0 [facility] Serum or plasma albumin/glob ulin mass ratioOrdered By: Dr. Patrick on 02-12-2023 Albumin/Globulin [Mass ratio] 1.0 {ratio} 0.9-2.4 [facility] Serum or plasma calcium shelli urement (mass/volume)Ordered By: Dr. Patrick on 02-12-2023 Calcium [Mass/Vol] 9.9 mg/dL 8.5-10.1 [facility] Serum or plasma creatinine m easurement (mass/volume)Ordered By: Dr. Patrick on 02-12-2023 Creatinine [Mass/Vol] 0.90 mg/dL 0.55-1.02 [facility] Comment on above: The validity of the calculated GFR & GFRAA in patients over 70 years has not been determined. Clinical correlation is essential. Serum or plasma urea nitroge n measurement (mass/volume)Ordered By: Dr. Patrick on 02-12-2023 Urea nitrogen [Mass/Vol] 10 mg/dL 7-18 [facility] Thin prep Papanicolaou smear with manual screeningOrdered By: Dr. Patrick on 02-12-2023 Thin prep Papanicolaou smear with manual screening 31 U/L 15-37 [facility] Thin prep Papanicolaou smear with manual screening 8 5-15 [facility] Absolute lymphocyte counton 02-01-2022 Lymphocytes Auto (Unsp spec) [#/Vol] 1.50 10*3/uL 0.83-4.51 [facility] Work Phone: Basophil percentageon 2021 Basophils/100 WBC (Bld) 0.5 % 0-1 [facility] Work Phone: Bilirubin [Mass/Vol] 0.30 mg/dL 0.20-1.00 [facility] Work Phone: Comment on above: For patients on eltr ombopag therapy, use of Dimension Maben TBIL is not recommended. Chloride [Moles/Vol] 108 mmol/L 98-107 [facility] Work Phone: Cholesterol [Mass/Vol] 225 mg/dL <200 [facility] Work Phone: Comment on above: <200 mg/dL Desirable 200-240 mg/dL Borderline >240 mg/dL High Risk Eosinophils/100 WBC (Bld) 1.3 % 0-5 [facility] Work Phone: [phone] Glucose [Mass/Vol] 96 mg/dL 74-106 [facility] Work Phone: Neutrophils (Bld) [#/Vol] 6.0 10*3/uL 2.0-7.7 [facility] Work Phone: Neutrophils/100 WBC (Bld) 71.8 % 47-70 [facility] Work Phone: Potassium [Moles/Vol] 3.8 mmol/L 3.5-5.1 [facility] Work Phone: Protein [Mass/Vol] 7.4 g/dL 6.4-8.2 [facility] Work Phone: Sodium [Moles/Vol] 141 mmol/L 136-145 [facility] Work Phone: Triglyceride [Mass/Vol] 167 mg/dL [facility] Work Phone: Comment on above: The drugs N-Acetylcy steine and Metamizole may falsely depress this assay.Serum Triglycerides Reference Interval Normal <150 mg/dL Borderline high 150 - 199 mg/dL High 200 - 499 mg/dL Very High > or = 500 mg/dL WBC (Bld) [#/Vol] 8.3 10*3/uL 4.4-11.0 [facility] Work Phone: Blood erythrocytes count (nu mber/volume)on 02-01-2022 RBC (Bld) [#/Vol] 4.45 10*6/uL 4.2-5.4 [facility] Work Phone: Blood hemoglobin measurement (mass/volume)on 02-01-2022 Hemoglobin (Bld) [Mass/Vol] 13.3 g/dL 12.0-15.0 [facility] Work Phone: Blood lymphocytes/100 leukoc yteson 02-01-2022 Lymphocytes/100 WBC (Bld) 18.0 % 19-41 [facility] Work Phone: Blood monocytes/100 leukocyt eson 02-01-2022 Monocytes/100 WBC (Bld) 7.9 % 0-10 [facility] Work Phone: Blood platelet mean volumeon 02-01-2022 Platelet mean volume (Bld) [Entitic vol] 10.2 fL 6.2-12.0 [facility] Work Phone: Determination of erythrocyte mean corpuscular volume (MCV)on 02-01-2022 MCV (RBC) [Entitic vol] 93.9 fL 81-99 [facility] Work Phone: Hematocrit Auto (Bld) [Volum e fraction]on 02-01-2022 Hematocrit (Bld) [Volume fraction] 41.8 % 37-47 [facility] Work Phone: Laboratory - Chemistry and C hemistry - challengeon 02-01-2022 ALP [Catalytic activity/Vol] 66 U/L 45-117 [facility] Work Phone: ALT [Catalytic activity/Vol] 60 U/L 13-56 [facility] Work Phone: CO2 [Moles/Vol] 29.0 mmol/L 21.0-32.0 [facility] Work Phone: Globulin (S) [Mass/Vol] 3.4 g/dL 2.2-4.2 [facility] Work Phone: Urea nitrogen/Creatinine [Mass ratio] 13.0 mg/mg 10-20 [facility] Work Phone: Laboratory - Hematology and Cell countson 02-01-2022 Erythrocyte distribution width (RBC) [Entitic vol] 45.1 fL 35.1-43.9 [facility] Work Phone: Erythrocyte distribution width (RBC) [Ratio] 13.2 % 11.6-14.6 [facility] Work Phone: Immature granulocytes/100 WBC (Bld) 0.500 % 0.0-0.9 [facility] Work Phone: Comment on above: IG% - Immature Granu locytes (promyelocytes, myelocytes and metamyelocytes) > 1% indicates that a LEFT SHIFT is Present. MCH (RBC) [Entitic mass] 29.9 pg 27.0-32.0 [facility] Work Phone: Nucleated RBC/100 WBC (Bld) [Ratio] 0 % 0-5 [facility] Work Phone: MCHC Auto (RBC) [Mass/Vol]on 02-01-2022 MCHC (RBC) [Mass/Vol] 31.8 g/dL 32-36 [facility] Work Phone: No Panel Informationon 02-01 Estimated GFR (MDRD) Amer 84 mL/min >60 [facility] Work Phone: Comment on above: GFR Calc Estimated GFR (MDRD) Non-Af Amer 70 mL/min >60 [facility] Work Phone: Comment on above: Non- GFR Calc Thyroid Stimulating Hormone (TSH) 1.05 uIU/mL 0.358-3.74 [facility] Work Phone: Platelets bldon 02-01-2022 Platelets (Bld) [#/Vol] 275 10*3/uL 150-450 [facility] Work Phone: Serum or plasma albumin shelli urement (mass/volume)on 02-01-2022 Albumin [Mass/Vol] 4.0 g/dL 3.2-5.0 [facility] Work Phone: Serum or plasma albumin/glob ulin mass ratioon 02-01-2022 Albumin/Globulin [Mass ratio] 1.2 {ratio} 0.9-2.4 [facility] Work Phone: Serum or plasma calcium shelli urement (mass/volume)on 02-01-2022 Calcium [Mass/Vol] 9.3 mg/dL 8.5-10.1 [facility] Work Phone: Serum or plasma cholesterol in HDL measurement (mass/volume)on 02-01-2022 Cholesterol in HDL [Mass/Vol] 54 mg/dL [facility] Work Phone: Comment on above: The drugs N-Acetylcy steine and Metamizole may falsely depress this assay. Reference Range HDL <40 mg/dL Low HDL Cholesterol HDL >or= 60 mg/dL High HDL Cholesterol Serum or plasma cholesterol in VLDL measurement (mass/volume)on 02-01-2022 Cholesterol in VLDL [Mass/Vol] 33 mg/dL 5-40 [facility] Work Phone: Serum or plasma creatinine m easurement (mass/volume)on 02-01-2022 Creatinine [Mass/Vol] 0.93 mg/dL 0.55-1.02 [facility] Work Phone: Comment on above: The validity of the calculated GFR & GFRAA in patients over 70 years has not been determined. Clinical correlation is essential. Serum or plasma low density lipoprotein (LDL) cholesterol measurement (mass/volume)on 02-01-2022 Cholesterol in LDL [Mass/Vol] 138 mg/dL 0-130 [facility] Work Phone: Serum or plasma urea nitroge n measurement (mass/volume)on 02-01-2022 Urea nitrogen [Mass/Vol] 12 mg/dL 7-18 [facility] Work Phone: Thin prep Papanicolaou smear with manual screeningon 02-01-2022 Thin prep Papanicolaou smear with manual screening 29 U/L 15-37 [facility] Work Phone: Thin prep Papanicolaou smear with manual screening 4 5-15 [facility] Work Phone: XR Chest PA and Lateralon IMPRESSION: Refer to the result. Supplier Quality Engineering Manager: PSCB Transcribe Date/Time: Jun 14 2021 2:25P Dictated by : TRUPTI GOMEZ MD This examination was interpreted and the report reviewed and electronically signed by: TRUPTI GOMEZ MD on Jun 14 2021 2:30PM [facility] DIVISION OF RADIOLOGY * * *Final Report* * * DATE OF EXAM: Jun 14 2021 2:21PM WOX [id number] - XR CHEST 2V FRONTAL/LAT / PROCEDURE REASON: multiple diagnoses * * * * Physician Interpretation * * * * EXAMINATION: CHEST RADIOGRAPH (2 VIEW FRONTAL & LATERAL) CLINICAL HISTORY: Pneumonia due to COVID-19 virus Pneumonia due to COVID-19 virus MQ: XC2_6 EXAM DATE/TIME: 06/14/2021 2:21 PM COMPARISON: 05/16/2021 RESULT: Lines, tubes, and devices: None. Lungs and pleura: Interval improvement/resolution of subtle patchy RIGHT pulmonary opacities described on prior exam from 05/16/2021. No pleural effusion or pneumothorax. Cardiomediastinal silhouette: Stable Bones and soft tissues: No acute osseous abnormality is identified. DIVISION OF RADIOLOGY Provider, [facility] - 06/14/2021 * * *Final Report* * * DATE OF EXAM: Jun 14 2021 2:21PM WOX 5291 - XR CHEST 2V FRONTAL/LAT / PROCEDURE REASON: multiple diagnoses * * * * Physician Interpretation * * * * EXAMINATION: CHEST RADIOGRAPH (2 VIEW FRONTAL & LATERAL) CLINICAL HISTORY: Pneumonia due to COVID-19 virus Pneumonia due to COVID-19 virus MQ: XC2_6 EXAM DATE/TIME: 06/14/2021 2:21 PM COMPARISON: 05/16/2021 RESULT: Lines, tubes, and devices: None. Lungs and pleura: Interval improvement/resolution of subtle patchy RIGHT pulmonary opacities described on prior exam from 05/16/2021. No pleural effusion or pneumothorax. Cardiomediastinal silhouette: Stable Bones and soft tissues: No acute osseous abnormality is identified. IMPRESSION IMPRESSION: Refer to the result. Supplier Quality Engineering Manager: ЕКАТЕРИНА Transcribe Date/Time: Jun 14 2021 2:25P Dictated by : TRUPTI GOMEZ MD This examination was interpreted and the report reviewed and electronically signed by: TRUPTI GOMEZ MD on Jun 14 2021 2:30PM EST [facility] Radiology Study observation (narrative) [facility] XR Chest PA and LateralOrder ed By: Ccf Provider on 06-14-2021 [facility] XR Chest PA and Lateralon IMPRESSION: Subtle patchy opacities throughout the RIGHT lung may reflect an infectious process. Supplier Quality Engineering Manager: ЕКАТЕРИНА Transcribe Date/Time: May 16 2021 11:02A Dictated by : TRUPTI GOMEZ MD This examination was interpreted and the report reviewed and electronically signed by: TRUPTI GOMEZ MD on May 16 2021 11:04AM [facility] DIVISION OF RADIOLOGY * * *Final Report* * * DATE OF EXAM: May 16 2021 11:01AM WOX [id number] - XR CHEST 2V FRONTAL/LAT / PROCEDURE REASON: Cough * * * * Physician Interpretation * * * * EXAMINATION: CHEST RADIOGRAPH (2 VIEW FRONTAL & LATERAL) CLINICAL HISTORY: Cough MQ: XC2_6 EXAM DATE/TIME: 05/16/2021 11:01 AM COMPARISON: 02/23/2008 RESULT: Lines, tubes, and devices: None. Lungs and pleura: Subtle patchy opacity throughout the RIGHT lung. LEFT basilar atelectasis. No pleural effusion or pneumothorax. Cardiomediastinal silhouette: Stable Bones and soft tissues: No acute osseous abnormality. DIVISION OF RADIOLOGY Provider, [facility] - 05/16/2021 * * *Final Report* * * DATE OF EXAM: May 16 2021 11:01AM WOX 5291 - XR CHEST 2V FRONTAL/LAT / PROCEDURE REASON: Cough * * * * Physician Interpretation * * * * EXAMINATION: CHEST RADIOGRAPH (2 VIEW FRONTAL & LATERAL) CLINICAL HISTORY: Cough MQ: XC2_6 EXAM DATE/TIME: 05/16/2021 11:01 AM COMPARISON: 02/23/2008 RESULT: Lines, tubes, and devices: None. Lungs and pleura: Subtle patchy opacity throughout the RIGHT lung. LEFT basilar atelectasis. No pleural effusion or pneumothorax. Cardiomediastinal silhouette: Stable Bones and soft tissues: No acute osseous abnormality. IMPRESSION IMPRESSION: Subtle patchy opacities throughout the RIGHT lung may reflect an infectious process. Supplier Quality Engineering Manager: PSCB Transcribe Date/Time: May 16 2021 11:02A Dictated by : TRUPTI GOMEZ MD This examination was interpreted and the report reviewed and electronically signed by: TRUPTI GOMEZ MD on May 16 2021 11:04AM EST [facility] Radiology Study observation (narrative) [facility] XR Chest PA and LateralOrder ed By: Ccf Provider on 05-16-2021 [facility] Vital Signs Date Time Vital Sign Value Performing Clinician Faci lity 01-26-2025 07:50-0400 Body height 160.[address] Radha Patrick MD Work Phone: [facility] 01-26-2025 07:50-0400 Body mass index (BMI) [Ratio] 32.2 kg/m2 Dr. Radha Patrick MD Work Phone: [facility] 01-26-2025 07:50-0400 Body temperature 98 [degF] Dr. Radha Patrick MD Work Phone: [facility] 01-26-2025 07:50-0400 Body weight 82.[address] Radha Patrick MD Work Phone: [facility] 01-26-2025 07:50-0400 Diastolic blood pressure 80 mm[Hg] Dr. Radha Patrick MD Work Phone: [facility] 01-26-2025 07:50-0400 Heart rate 103 /min Dr. Radha Patrick MD Work Phone: [facility] 01-26-2025 07:50-0400 SaO2% (BldA) [Mass fraction] 97 % Dr. Radha Patrick MD Work Phone: [facility] 01-26-2025 07:50-0400 Systolic blood pressure 122 mm[Hg] Dr. Radha Patrick MD Work Phone: [facility] 01-06-2025 13:02-0400 Body height 160.[address] Radha Patrick MD Work Phone: [phone] [place] [address] 01-06-2025 13:02-0400 Body mass index (BMI) [Ratio] 32.2 kg/m2 Dr. Radha Patrick MD Work Phone: [facility] 01-06-2025 13:02-0400 Body weight 82.[address] Radha Patrick MD Work Phone: [facility] 01-06-2025 13:02-0400 Diastolic blood pressure 87 mm[Hg] Dr. Radha Patrick MD Work Phone: [facility] 01-06-2025 13:02-0400 Systolic blood pressure 123 mm[Hg] Dr. Radha Patrick MD Work Phone: [facility] 01-01-2025 10:45-0400 Body mass index (BMI) [Ratio] 32.1 kg/m2 Dr. Radha Patrick MD Work Phone: [facility] 01-01-2025 10:45-0400 Body weight 82.[address] Radha Patrick MD Work Phone: [facility] 01-01-2025 10:45-0400 Diastolic blood pressure 85 mm[Hg] Dr. Radha Patrick MD Work Phone: [facility] 01-01-2025 10:45-0400 Heart rate 105 /min Dr. Radha Patrick MD Work Phone: [facility] 01-01-2025 10:45-0400 Respiratory rate 18 /min Dr. Radha Patrick MD Work Phone: [facility] 01-01-2025 10:45-0400 SaO2% (BldA) [Mass fraction] 96 % Dr. Radha Patrick MD Work Phone: [facility] 01-01-2025 10:45-0400 Systolic blood pressure 122 mm[Hg] Dr. Radha Patrick MD Work Phone: [facility] Encounters Encounter Date Encounter Type Care Provider Facility Start: 05-13-2025 ambulatory Radha Darnell Facility: [facility] Start: 02-19-2025 Encounter for [facility] Start: 02-12-2025 End: 02-12-[address] Jr Oviedo MD Work Phone: [facility] Start: 02-12-2025 End: 02-12-[address] Radha Patrick MD -[facility] Work Phone: Start: 02-12-2025 End: 02-12-2025 ambulatory Radha Patrick Facility:[facility] Start: 01-26-2025 End: 01-26-2025 Patient encounter procedure Cole FINLEY -[facility] Work Phone: Start: 01-26-2025 End: 01-26-[address] Radha Patrick MD Work Phone: [facility] Work Phone: Start: 01-26-2025 End: 01-26-2025 ambulatory Cole FINLEY Facility:[facility] Start: 01-06-2025 End: 01-06-2025 Patient encounter procedure Yamilex PATEL -[facility] Work Phone: Start: 01-06-2025 End: 01-06-[address] Radha Patrick MD Work Phone: [facility] Work Phone: Start: 01-01-2025 End: 01-01-[address] Jr Oviedo MD -[facility] Work Phone: Start: 01-01-2025 End: 01-01-2025 ambulatory Jr Oviedo Facility:[facility] Start: 09-22-2024 End: 09-22-[address] Radha Patrick MD -Ultrasound [facility] Work Phone: Start: 09-22-2024 End: 09-22-2024 ambulatory Radha Patrick Facility:[facility] Start: 05-18-2024 Encounter for other preprocedural examination [facility] Start: 05-18-2024 ambulatory Radha Patrick Facility: [facility] Start: 04-20-2024 End: 04-20-2024 ambulatory Itzel Berg Facility:[facility] Start: 12-12-2023 End: 12-12-2023 ambulatory [facility] Work Phone: Start: 12-12-2023 End: 12-12-2023 [facility] encounter [facility] Work [facility]: Start: 12-04-2023 End: 12-09-2023 ambulatory ITZEL BERG RAMP MANAGER-CNM Facility:B Start: 12-04-2023 End: 12-09-2023 Encounter for gynecological examination (general) (routine) without abnormal findings ITZEL BERG APRN-CNM Facility:[facility] Start: 12-04-2023 End: 12-08-2023 Outreach Lab ITZEL BERG RAMP MANAGER-CNM [facility] Start: 07-03-2023 ambulatory Georgia Casanova Work Phone: Internal [facility] Start: 04-16-2023 End: 04-16-2023 ambulatory [facility] Work Phone: Start: 04-16-2023 End: 04-16-2023 Patient encounter procedure [facility]-Outpatient [facility] Work Phone: Start: 02-12-2023 End: 02-12-2023 ambulatory [facility] Work Phone: Start: 02-12-2023 End: 02-12-2023 Patient encounter procedure [facility] Start: 07-04-2022 ambulatory Georgia Henson Jocelyne Work Phone: Internal [facility] Start: 02-01-2022 End: 02-01-2022 Patient encounter procedure [facility] [place] Start: 06-14-2021 End: 06-14-2021 Subsequent hospital visit by physician [facility]r [facility] Work Phone: Radiology Comment on above: Pneumonia due to COV ID-19 virus [U07.1, J12.82] Start: 05-16-2021 End: 05-16-2021 Subsequent hospital visit by physician [facility]r [facility] Work Phone: Radiology Comment on above: Cough [R05] Procedures Date Procedure Procedure Detail Performing Clinician Start: 02-12-2025 Plain x-ray of pelvi s and lower extremity Dr. Jr Oviedo MD Work Phone: Start: 01-26-[address] Martha Patrick MD Work Phone: Start: 01-06-2025 Follicle stimulating hormone measurement Dr. Radha Patrick MD Work Phone: Comment on above: FEMALE:Follicular: 1 .4 - 18.1 mIU/mLMidcycle: 3.4 - 33.4 mIU/mLLuteal: 1.5 - 9.1 mIU/mLPost Menopause: 23.0 - 116.3 mIU/mLMALE: 1.4 - 18.1 mIU/mL NORMAL REFERENCE RANGES FEMALE FOLLICULAR 2.3 - 12.6 mIU/mL MID-CYCLE PEAK 5.2 - 17.5 mIU/mL LUTEAL 1.7 - 12.9 mIU/mL POST-MENOPAUSAL ON MHT 5.9 - 72.8 mIU/mL NOT ON MHT 12.7 - 132.2 mlU/mL MALE 0.7 - 10.8 mIU/mL Start: 09-22-2024 US scan of thyroid Dr. Radha Patrick MD Work Phone: Start: 04-16-2023 Screening mammography Start: 06-14-2021 Radiologic exam ches t 2 views Emilia Briceño RAMP MANAGER.USER SUPPORT ANALYST SUPERVISOR Work Phone: Start: 05-16-2021 Radiologic exam ches t 2 views Dalila Carson PA-C Work Phone: Start: 06-02-2020 Mammography Georgia freitas MD Work Phone: Start: 11-02-2014 Lipid 1996 panel - Serum or Plasma Georgia Dillon MD Work Phone: Start: 04-26-2007 H/O: tubal ligation History of tubal ligation section ITZEL GAMBLE RAMP MANAGER-CNM Destructive procedure MILANA BERG RAMP MANAGER-CNM H/O: section History of C-sectio n H/O: surgery History of nasal surgery History of tonsillectomy History of tonsillectomy Ligation of fallopia n tube ITZEL BERG RAMP MANAGER-CNM Rhinp dfrm w/colum lngth tip only ITZEL BERG RAMP MANAGER-CNM Tonsillectomy ITZEL Barahona RAMP MANAGER-CNM Plan of Treatment Date Care Activity Detail Author Start: 10-10-2028 Urine microalbumin profile [facility] Start: 01-06-2025 Estradiol (E2) [Mass/volume] in Serum or Plasma [facility] Start: 01-06-2025 Follicle stimulating hormone measurement [facility] Start: 04-26-2024 Covid-19 Vaccine (1 - 2024-25 season) Covid-19 Vaccine ( season) [facility] Start: 04-26-2024 Influenza vaccination Influenza Vacc ine (#1) [facility] Start: 04-26-2023 Influenza vaccination Influenza Vacc ine (#1) [facility] Start: 08-26-2022 Depression Assessment Depression Ass essment [facility] Start: 04-26-2022 Influenza vaccination INFLUENZA (#1) [facility] Start: 2021 COLOGUARD (FIT-DNA) COLOGUARD (FIT-D NA) [facility] Start: 2021 Colonoscopy COLONOSCOPY [facility] Start: 2021 COLORECTAL CANCER SCREENING COLORECTAL CANCER SCREENING [facility] Start: [address] COLONOGRAPHY [facility] Start: 2021 DIABETES SCREEN DIABETES SCREEN [facility] Start: 2021 Diabetes Screening Diabetes Screenin g [facility] Start: 2021 FECAL OCCULT BLOOD FECAL OCCULT BLOO D [facility] Start: 2021 Lipid 1996 panel - S deya or Plasma Lipid Screening [facility] Start: 2021 Lipid panel Lipid Screening [facility] Start: 2021 LIPID SCREEN LIPID SCREEN [facility] Start: 2021 Screening for malign ant neoplasm of colon [facility] Start: 2021 SIGMOIDOSCOPY SIGMOIDOSCOPY [facility] Start: 10-08-2021 HPV TESTING HPV TESTING [facility] Start: 10-08-2021 PAP TESTING PAP TESTING [facility] Start: 10-08-2021 Screening for malign ant neoplasm of cervix Cervical Cancer Screening [facility] Start: 08-26-2021 DEPRESSION ASSESSMENT DEPRESSION ASS ESSMENT [facility] Start: 06-02-2021 Mammography [facility] Start: 06-02-2021 Screening for malign ant neoplasm of breast Mammogram Screening [facility] Start: 11-22-1995 Hepatitis B Vaccine (1 of 3 - 19+ 3-dose series) Hepatitis B Vaccine (1 of 3 - 19+ 3-dose series) [facility] Start: 1994 Anxiety Screening Anxiety Screening [facility] Start: 1994 Depression Screening Depression Scre ening [facility] Start: 1994 HEPATITIS C SCREENING HEPATITIS C [facility] Start: 1994 Hepatitis C screening Hepatitis C [facility] Start: 1994 HIV SCREENING HIV SCREENING [facility] Start: 1994 HIV screening HIV Screening [facility] Start: 05-24-1977 COVID-19 VACCINE (#1) COVID-19 VACCI NE (#1) [facility] Start: 1976 HEPATITIS B (1 of 3 - 3-dose series) HEPATITIS B (1 of 3 - 3-dose series) [facility] Start: 1976 Hepatitis B Vaccine (1 of 3 - 3-dose series) Hepatitis B Vaccine (1 of 3 - 3-dose series) [facility] End: 08-01-2024 WILI SCREENING WILI SCREENING Radiology Routine Encounter for screening mammogram for breast cancer 1 Occurrences starting 07/03/2023 until 08/01/2024 [facility] Work Phone: Comment on above: 1 Occurrences starti ng 07/03/2023 until 08/01/2024 End: 08-03-2023 Screening mammography bi 2-view breast inc cad WILI SCREENING Radiology Routine Encounter for screening mammogram for breast cancer 1 Occurrences starting 07/04/2022 until 08/03/2023 [facility] Work Phone: Comment on above: 1 Occurrences starti ng 07/04/2022 until 08/03/2023 [facility] Immunizations Immunization Date Immunization Notes Care Provider Lanre clark 06-14-2021 influenza, injectabl e, quadrivalent, contains preservative Georgia Dillon MD Work Phone: [facility] 06-14-2021 influenza virus vaccine, unspecified formulation Georgia Dillon MD Work Phone: [facility] 07-02-2020 influenza, injectabl e, quadrivalent, contains preservative Georgia Dillon MD Work Phone: [facility] Work Phone: 07-31-2019 influenza, injectabl e, quadrivalent, contains preservative Georgia Dillon MD Work Phone: [facility] Work Phone: 06-04-2017 influenza, injectabl e, quadrivalent, contains preservative Georgia Dillon MD Work Phone: [facility] Work Phone: 06-07-2016 influenza, injectabl e, quadrivalent, contains preservative Georgia Dillon MD Work Phone: [facility] Work Phone: 06-09-2015 influenza, injectabl e, quadrivalent, contains preservative Georgia Dillon MD Work Phone: [facility] Work Phone: 06-09-2014 influenza, seasonal, injectable Georgia Dillon MD Work Phone: [facility] Work Phone: 06-30-2013 influenza virus vaccine, unspecified formulation Georgia Dillon MD Work Phone: [facility] Work Phone: 05-26-2011 influenza virus vaccine, unspecified formulation Georgia Dillon MD Work Phone: [facility] Work Phone: 06-18-2006 influenza virus vaccine, unspecified formulation Georgia Dillon MD Work Phone: [facility] Work Phone: 11-02-2005 tetanus toxoid, redu agusto diphtheria toxoid, and acellular pertussis vaccine, adsorbed Georgia Dillon MD Work Phone: [facility] Work Phone: Payers Date Payer Category Payer Unknown [id number] 2024 Self-pay [id number] 2021 Unknown MMO MMO [employer] [id number] 2021-[facility] [phone] [address] [place] [address] Indemnity [id number] 2019 Private Health Insurance EJ LEIGH POS [id number] 2019-2021 [address] [place] [address] POS [id number] 2012 Unknown [id number] 2006 Unknown [id number] 1975 Unknown 2023 [id number] Unknown [id number] Unknown [id number] Unknown [id number] Unknown [id number] Unknown [id number] Unknown [id number] Unknown [id number] Unknown [id number] Unknown [id number] Unknown [id number] Social History Date Type Detail Facility Start: 05-22-2018 Tobacco smoking stat [facility] Unknown if ever smoked [facility] Start: 1975 Sex Assigned At Female C [facility] Start: 05-17-2014 End: 12-09-2024 Tobacco smoking status NHIS Ex-smoker [facility] Work Phone: Start: 12-13-2005 End: 12-13-2013 History of tobacco use Current smoker [facility] Work Phone: Start: 12-13-2005 End: 12-13-2013 History of tobacco use Cigarette Smoker [facility] Work Phone: Start: 05-17-2014 End: 08-03-2020 Cigarettes smoked current (pack per day) - Reported 1 [facility] Start: 05-17-2014 Tobacco use and exposure Smoke less tobacco non-user [facility] Work Phone: Start: 05-16-2021 Alcohol intake Current drinke r of alcohol (finding) [facility] Start: 08-30-2020 History SDOH Alcohol Frequency 2 [facility] Start: 08-30-2020 History SDOH Alcohol Binge 1 [facility] Start: 08-30-2020 History SDOH Social Connections Phone 5 [facility] Start: 08-30-2020 History SDOH Social Connections Get Together 98 [facility] Start: 08-30-2020 History SDOH Social Connections Living 3 [facility] Start: 08-30-2020 Education 15 [facility] Start: 11-11-2013 Tobacco Comment quit while [facility] Start: 07-03-2011 Alcohol Comment occasional 15-20/yea r [facility] Start: 08-03-2020 End: 08-30-2020 Social connection and isolation panel [facility] How often do you get together with friends or relatives? Patient refused [facility] Do you belong to any clubs or organizations such as zoroastrian groups, unions, fraternal or athletic groups, or school groups? No [facility] Are you now , , , , never or living with a partner? [facility] How often to you hav e a drink containing alcohol? Monthly or less [facility] How many standard dr inks containing alcohol do you have on a typical day? 3 or 4 [facility] How often do you hav e 6 or more drinks on 1 occasion? Never [facility] Do you feel stress - tense, restless, nervous, or anxious, or unable to sleep at night because your mind is troubled all the time - these days [OSQ] Only a little [facility] (I/We) worried wheth er (my/our) food would run out before (I/we) got money to buy more. Never true [facility] Start: 06-08-2021 Gender identity Identifies as female gender (finding) [facility] Start: 12-04-2023 Tobacco smoking status Never s moked tobacco (finding) [facility] Start: 04-16-2021 End: 05-16-2021 Exposure to SARS-CoV-2 (event) Not sure [facility] Clinical Notes 05-16-2021 to 02-12-2025 Note Date & Type Note Facility 02-12-2025 Radiology Diagnostic study note [facility] Imaging Services [address] [place] [address] HIP, UNI W/ Pelvis 2-3 Views MR#: [id number] Acct: [id number] Name: GUERLINE CHAMBERLAIN Rep #: [id number] : 1975 F 49 From: Jeanne Tejada MD PCP: Dr. Radha Patrick MD Status: REG CLI Study:HIP, UNI W/ Pelvis 2-3 Views Date of Ex am: 02/12/25 Exam# [id number] Ordering Dr: Donna Patrick MD EXAM: XR Right Hip With Pelvis When Performed, 2 or 3 Views CLINICAL INDICATION: PAIN TECHNIQUE: Two or three views of the right hip with pelvis when performed. COMPARISON: No relevant prior studies available. FINDINGS: BONES/JOINTS: Mild degenerative changes of the right hip joint. No dislocation. No acute fracture. SOFT TISSUES: Unremarkable. RAD/HIP, UNI W/ Pelvis 2-3 Views IMPRESSION: No acute fracture. Reading Location: [id number] CC: Dr. Radha Patrick MD ~ Supplier Quality Engineering Manager: Signed [facility] 01-26-2025 Progress note [facility] 01-26-2025 Progress note Note Date/Time January 26, 2025 7:51am [facility] [address], [address] [place], [place] [id number] OFFICE VISIT Date of Service: 01/26/25 MR#: [id number] Acct: [id number] Name: GUERLINE CHAMBERLAIN Rep #: [id number] : 1975 Provider: MALIA Kelly Age/Sex: 49/F Location: [facility] Status: Signed Intake Vital Signs 01/06/25 13:02 01/26/25 07:50 Height 5 ft 3 in 5 ft 3 in Weight: 182 lb 182 lb BMI 32.2 32.2 BP 123/87 H 122/80 H Position Sitting Pulse 103 H Temp 98.0 F Temp Source Oral Pulse Oximetry (%) 97 Oxygen Delivery Method room air Intake Visit Reasons: CONCERN FOR UTI Accompanied by: Self Allergies No Known Allergies Allergy (Verified 01/26/25 07:41) Medications ?Medication ?Instructions ?Recorded ?Confirmed ?Type cholecalciferol (vitamin D3) 25 25 mcg PO QDAY 5 01/26/25 History mcg (1,000 unit) capsule folic acid 400 mcg tablet 0.4 mg PO QDAY 12/09/2411/17 History magnesium oxide 500 mg capsule 500 mg PO QDAY 12/09/24 01/26/25 History mecobalamin (vitamin B12) 2,500 mcg PO 12/09/24 History mcg chewable tablet meloxicam 15 mg tablet 15 mg PO QDAY 12/09/2401/26 History olmesartan 40 mg-amlodipine 10 1 tab PO QDAY 12/09/24 01/26/25 History mg-hydrochlorothiazide 12.5 mg tablet pantoprazole 40 mg tablet,delayed 40 mg PO QDAY 01/26/25 History release phentermine 37.5 mg capsule 37.5 mg PO QDAY 12/09/24 0 01/26/25 History estradiol 0.0375 mg/24 hr 1 patch transdermal 2XW #8 e a 01/06/25 01/26/25 Rx semiweekly transdermal patch progesterone micronized 100 mg 100 mg PO QAM #30 caps 01/06/25 01/26/25 Rx capsule (Prometrium) nitrofurantoin 100 mg PO Q12H 5 days #10 ca ps 01/26/25 01/26/25 Rx monohydrate/macrocrystals 100 mg capsule (Macrobid) Nurse's Note: Patient here for concern for a UTI. Patient has frequency, blood and painful urination since last night. PFSH Medical History H/O recurrent pneumonia Osteoarthritis Chronic migraine History of chest pain Hypertension Chest pain Family history of ischemic heart disease Surgical History History of History of nasal surgery History of tubal ligation (04/2007) History of tonsillectomy History of endometrial ablation Family History Father CAD (coronary artery disease) Myocardial infarction In his 40's Grandfather CAD (coronary artery disease) S/P CABG (coronary artery bypass graft) Myocardial infarction Grandfather CAD (coronary artery disease) Myocardial infarction S/P CABG (coronary artery bypass graft) Social History Smoking Status: Former smoker quit date: 12/13/13 pack-years: 8 alcohol intake: current alcohol intake frequency: holidays/special occasions only substance use type: does not use what type of physical activity do you participate in: weight training frequency: 1-2 times per week HPI HPI Details: GUERLINE CHAMBERLAIN, is a 49 F who presents to the office today for [facility] at [facility] for less than 24 hour history of dysuria and urinary frequency with suprapubic pressure. No complaints of fever, chills, sweats, lightheadedness/dizziness, nausea/vomiting, or chest pain/shortness of breath/dyspnea on exertion/back pain. No changes in color/ character of urine orstool. No afdt-qfz-rjzsytx products taken to assist. No other associated symptoms and no alleviating/aggravating factors. ROS Const Constitutional: No other (As above) Exam Const General: cooperative, healthy appearing and no acute distress Orientation: alert, awake and oriented x3 Chest Chest palpation & inspection: normal inspection of the chest Resp Effort & Inspection: normal respiratory effort and able to speak in complete sentences Cardio Rate: regular rate Pulses: radial pulses present GI Inspection: normal to inspection Palpation: soft and tender suprapubic (Patient describes upon self-palpation) General: No CVA tenderness Skin General: no rashes or lesions noted Neuro General: patient alert, patient awake and patient oriented x3 Cognition: normal cognition Speech: speech normal Psych Appearance: grossly normal Mental Status: mental status grossly normal Mood: congruent mood Affect: normal affect Speech and Movement: speech and movement normal Attitude: cooperative Diagnoses Urinary tract infection N39.0 Assessment and Plan Assessment and Plan (1) Urinary tract infection: Status: Acute Plan: See POC results; urine sent to lab for C/S. Macrobid as prescribed today. Supportive measures as instructed today. Follow-up with PCP in 3 to 5 days should symptoms not improve, sooner should symptoms only worsen or any other concerns develop. Patient states acknowledging understanding all the above. Coding Level of Care Code Off vis,new,level 3 Assessment and Plan Assessment and Plan Medications: New nitrofurantoin monohyd/m-cryst 100 mg (Macrobid) must administer with a meal/food 100 mg PO Q12H 5 days 10 caps 0RF 01/26/25 0751 <Electronically signed by Cole FINLEY> Date _ Cole FINLEY Cosigner Signature: Date (if applicable) CC: ~ [facility] Work Phone: 1(507) 339-341705-09-2025 Evaluation note* Diagnosis Onset Date Resolution Status Admit Date Encounter for cosmetic surgery acute January 01, 2025 10:18am [facility] Work Phone: 1(166) 815-351005-09-2025 Evaluation note* Diagnosis Onset Date Resolution Status Admit Date Encounter for cosmetic surgery acute January 01, 2025 10:18am Hot flashes due to menopause acute January 06, 2025 12:59pm [facility] Work Phone: 1(999) 700-219211-08-2023 NotePatient Outreach (INTMMN) GUERLINE CHAMBERLAIN ([id number]) 1975 F Date Time Provider Department 07/03/23 [facility] DILLON INTMMN During your visit today, we recorded the following information about you: Allergies As of Date: 07/03/2023 (No Known Allergies) Date Reviewed: 06/14/2021 Reviewed by: Rachelle Cage Ma - Fully Assessed Visit Diagnosis:Encounter for screening mammogram for breast cancer [Z12.31] Order(s):[facility] SCREENING [[id number]] Order #: [id number] FUTURE Prescriptions as of 07/08/2023 - fluticasone (FLONASE) 50 mcg/actuation nasal spray Use 2 Sprays in each nostril once daily. Rinse mouth after use. - olmesartan (BENICAR) 40 mg tablet Take 1 tablet by mouth once daily. - ZOLMitriptan (ZOMIG) 5 mg tablet Take at once for migraine. May repeat in 2 hours if needed. - ketorolac (TORADOL) 10 mg tablet Take 1 tablet by mouth every 6 hours as needed. Problem List As Of Date 07/03/2023 Noted Resolved STERILIZATION [Z30.2] 08/02/2005 MULTIPARITY [Z64.1] 08/02/2005 Migraine without aura and without status migrai*05/28/2006 IRRITABLE COLON [K58.9] 05/28/2006 ELEV BL PRES W/O HYPERTN [R03.0] 05/28/2006 PAIN LEG [M79.609] 10/17/2007 SCIATICA [M54.30] 11/10/2007 OBESITY NOS [E66.9] 02/23/2008 TINNITUS NOS [H93.19] 02/25/2009 HYPERACUSIS [H93.239] 02/25/2009 Dysplastic nevus [D23.9] 07/21/2010 Neoplasm of uncertain behavior of skin [D48.5] 07/21/2010 Eustachian tube dysfunction [H69.90] Dysmenorrhea [N94.6] 07/03/2011 Irregular menstrual cycle [N92.6] 07/03/2011 Excessive or frequent menstruation [N92.0] 07/03/2011 Early menopause [E28.319] 04/27/2015 Vitamin B12 deficiency [E53.8] 06/04/2017 Encounter Status:Closed by EPIC, PRODUSER on 07/08/23[facility] 06-14-2021 History of Present illness Narrative* Genevieve England RT(R) - 06/14/2021 2:10 PM EDT Radiology Service Progress Note PATIENT NAME: Guerline Chamberlain DATE OF SERVICE: June 14, 2021 TIME: 2:15 PM PATIENT IDENTITY VERIFICATION COMPLETED USING TWO (2) IDENTIFIERS: Name and Date of confirmedby patient verbally. FALL SCREENING: Has the patient had 2 falls in the last year or 1 fall with injury or currently using an Ambulatory Assistive Device (Walker, Cane, Wheelchair, Crutches, etc.)? No PATIENT GENDER DATA: Female. status: : No status: NO. PATIENT RELEVANT IMPLANT DATA REVIEWED: Not Applicable RADIOLOGY DEPARTMENT: General X-ray: Exam(s) Completed: Chest X-Ray PERIPHERAL IV DATA: Not applicable SIGNED BY: RT Teddy(R) June 14, 2021 2:15 PM [facility] History of Present illness Narrative* Penny Rene RT(R) - 05/16/2021 10:40 AM EDT Radiology Service Progress Note PATIENT NAME: Guerline Chamberlain DATE OF SERVICE: May 16, 2021 TIME: 10:53 AM PATIENT IDENTITY VERIFICATION COMPLETED USING TWO (2) IDENTIFIERS: Name and Date of confirmedby patient verbally. FALL SCREENING: Has the patient had 2 falls in the last year or 1 fall with injury or currently using an Ambulatory Assistive Device (Walker, Cane, Wheelchair, Crutches, etc.)? No PATIENT GENDER DATA: Female. status: : No status: NO. PATIENT RELEVANT IMPLANT DATA REVIEWED: Yes RADIOLOGY DEPARTMENT: General X-ray: Exam(s) Completed: Chest X-Ray PERIPHERAL IV DATA: Not applicable SIGNED BY: RT Ar(R) May 16, 2021 10:53 AM [facility] Future Appointments Appointment Date:01/01/2024 10:00:00 AM Scheduled Provider:ITZEL BERG Location:[facility] Appointment Type:[facility] Diagnostic Tests Pending * HPV Screen, DNA Probe 12/04/23 Future Scheduled Tests Laboratory* Inhibin B 12/05/23 * Estradiol Level 12/05/23 * Thyroid Stimulating Hormone 12/05/23 * Anti-Mullerian Hormone (AMH) 12/05/23 * A1C Hemoglobin 12/05/23 * Complete Blood Count 12/05/23 * Follicle Stimulating Hormone Level 12/05/23 * Glucose Level 12/05/23 * Insulin Level Total 12/05/23 * Vitamin D Level 12/05/23 [facility] Evaluation noteNo assessment information available [facility] Work Phone: Evaluation note* Diagnosis Encounter for screening mammogram for breast cancer documented in this encounter [facility]* Diagnosis Encounter for screening mammogram for breast cancer documented in this encounter [facility] note* Diagnosis MIGRAINE MENSTRUAL- Primary Premenstrual tension syndromes Early menopause Premature menopause Tension-type headache, not intractable, unspecified chronicity pattern Encounter to establish care Other reasons for seeking consultation Annual physical exam- Primary Routine general medical examination at a health care facility Need for vaccination Need for prophylactic vaccination and inoculation against unspecified single disease Migraine without aura and without status migrainosus, not intractable Migraine without aura, without mention of intractable migraine without mention of status migrainosus Vitamin B12 deficiency Other B-complex deficiencies Essential hypertension Unspecified essential hypertension Hypothyroidism, unspecified type Pneumonia due to COVID-19 virus documented [facility] this [facility]* Diagnosis MIGRAINE MENSTRUAL- Primary Premenstrual tension syndromes Early menopause Premature menopause Tension-type headache, not intractable, unspecified chronicity pattern Encounter to establish care Other reasons for seeking consultation Annual physical exam- Primary Routine general medical examination at a health care facility Need for vaccination Need for prophylactic vaccination and inoculation against unspecified single disease Migraine without aura and without status migrainosus, not intractable Migraine without aura, without mention of intractable migraine without mention of status migrainosus Vitamin B12 deficiency Other B-complex deficiencies Essential hypertension Unspecified essential hypertension Hypothyroidism, unspecified type Cough documented in this encounter [facility] course Narrative No data available for this section [facility] Hospital Discharge instructions No data available for this section [facility] Progress note No data available for this section [facility] Reason for referral (narrative)* Diagnostic Procedure Only (Routine) - Pending Review Specialty Diagnoses / Procedures Referred By Dariusz wiseman Referred To Contact [facility] Diagnoses Encounter for screening mammogram for breast cancer Procedures WILI SCREENING SCREENING MAMMOGRAPHY BI 2-VIEW BREAST INC Georgia Sierra MD [address] [place] [address] [facility] [address] [place] [address] Referral ID Status Reason Start Date Expiration Date Visits Requested Visits Authorized [id number] Pending Review Auto-Generat ed Referral 07/04/2022 08/03/2023 1 1 [facility] for referral (narrative)* Diagnostic Procedure Only (Routine) - Pending Review Specialty Diagnoses / Procedures Referred By Dariusz wiseman Referred To Contact [facility] Diagnoses Encounter for screening mammogram for breast cancer Procedures WILI SCREENING SCREENING MAMMOGRAPHY BI 2-VIEW BREAST INC Georgia Sierra MD [address] [place] [address] [facility] [address] [place] [address] Referral ID Status Reason Start Date Expiration Date Visits Requested Visits Authorized [id number] Pending Review Auto-Generat ed Referral 07/03/2023 08/01/2024 1 1 [facility] for referral (narrative)No reason for referral information availableCommunity [facility] Work Phone: Family History No Family History Records Found Relationship Condition Age at Onset Recorded Date/T ophelia father Coronary artery disease Unknown Myocardial infarction Unknown grandfather Coronary artery disease Unknown Status post coronary artery bypass graft Unknown Chief Complaint and Reason for Visit Chief Complaint SCREENING Chief Complaint Admit Date ENLARGED LYMPH GLAND September 22, 2024 11:42am COSMETIC CONSULT January 01, 2025 10:18a m HOROMONE THERAPY January 06, 2025 12:59 pm Reason for Visit Admit Date Encounter for cosmetic surgery January 01, 2025 10:18am Reason for Visit Admit Date Encounter for cosmetic surgery January 01, 2025 10:18am Hot flashes due to menopause January 06, 12:59pm Chief Complaint Admit Date COSMETIC CONSULT January 01, 2025 10:18a m HOROMONE THERAPY January 06, 2025 12:59 pm CONCERN FOR UTI January 26, 2025 7:35a m Chief Complaint Admit Date COSMETIC CONSULT January 01, 2025 10:18a m HOROMONE THERAPY January 06, 2025 12:59 pm CONCERN FOR UTI January 26, 2025 7:35a m ALSO HIP XRAY February 12, 2025 7:31 am Summary Purpose Advance Directives No Advanced Directives Records FoundNo Advanced Directives Records FoundNo Advanced Directives Records Found Additional Source Comments Goals (unrecognized section and content) Goals may be documented in a n alternate sectionGoals may be documented in an alternate sectionGoals may be documented in an alternate section No data available for this sectionGoals may be documented in an alternate sectionGoals may be documented in an alternate sectionGoals may be documented in an alternate sectionGoals may be documented in an alternate sectionGoals may be documented in an alternate sectionGoals may be documented in an alternate section Source Comments (unrecognize d section and content) In the event this informatio n is protected by the Federal Confidentiality of Alcohol and Drug Abuse Patient Records regulations: The Federal rules restrict any use of the information to criminally investigate or prosecute any alcohol or drug abuse patient.[facility] Hospital[facility] the event this information is protected by the Federal Confidentiality of Alcohol and Drug Abuse Patient Records regulations: The Federal rules restrict any use of the information to criminally investigate or prosecute any alcohol or drug abuse patient.[facility] HospitalIn the event this information is protected by the Federal Confidentiality of Alcohol and Drug Abuse Patient Records regulations: The Federal rules restrict any use of the information to criminally investigate or prosecute any alcohol or drug abuse patient.[facility] HospitalIn the event this information is protected by the Federal Confidentiality of Alcohol and Drug Abuse Patient Records regulations: The Federal rules restrict any use of the information to criminally investigate or prosecute any alcohol or drug abuse patient.[facility] Care Teams (unrecognized sec tion and content) Team Status: Active Member Role Status Dates Dr. Radha Patrick MD Primary Care Provider Active Team Status: Inactive Member Role Status Dates Dr. Radha Patrick MD Referring Provider Active Start: January 01, 2025 End: January 01, 2025 Dr. Jr Oviedo MD Attending Provider Active Start: January 01, 2025 End: January 01, 2025 Team Status: Inactive Member Role Status Dates Dr. 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 Morgan Thompson MD Family Provider Active Dr. Radha Patrick MD Primary Care Provider Active Team Status: Inactive Member Role Status Dates Dr. Radha Patrick MD Primary Care Prov ider, Attending Provider, Referring Provider Active [employer] Developer Relationship Specialty Start Date End Date Georgia Dillon MD [address] [place] [address] PCP - General Internal Medicine 04/05/15 Team Status: Inactive Member Role Status Dates Dr. Radah Patrick MD Primary Care Provider Active Itzel Berg CNM Attending Provider, Referring Pr ovider Active [employer] Web Developer Relationship Specialty Start Date End Date Georgia Dillon MD [address] [place] [address] PCP - General Internal Medicine 04/05/15 Team Status: Inactive Member Role Status Dates Dr. Radha Patrick MD Primary Care Provider Active Start: September 22, 2024 End: September 22, 2024 Dr. Radha Patrick MD Attending Provider Active Start: September 22, 2024 End: September 22, 2024 Dr. Radha Patrick MD Referring Provider Active Start: September 22, 2024 End: September 22, 2024 Team Status: Active Member Role Status Dates AMANDA Lucero Attending Provider Active Start: January 06, 2025 AMANDA Lucero Referring Provider Active Start: January 06, 2025 Team Status: Active Member Role/Relationship Status Dates Dr. Radha Patrick MD Primary Care Provider Active Team Status: Inactive Member Role/Relationship Status Dates Dr. Jr Oviedo MD Attending Provider Active Start: January 01, 2025 End: January 01, 2025 Dr. Jr Oviedo MD Referring Provider Active Start: January 01, 2025 End: January 01, 2025 Team Status: Inactive Member Role/Relationship Status Dates Dr. Radha Patrick MD Referring Provider Active Start: January 06, 2025 End: January 06, 2025 AMANDA Lucero Attending Provider Active Start: January 06, 2025 End: January 06, 2025 Team Status: Inactive Member Role/Relationship Status Dates AMANDA Lucero Attending Provider Active Start: January 06, 2025 End: January 06, 2025 AMANDA Lucero Referring Provider Active Start: January 06, 2025 End: January 06, 2025 Team Status: Inactive Member Role/Relationship Status Dates MALIA Metcalf Attending Provider Active Start: January 26, 2025 End: January 26, 2025 Team Status: Inactive Member Role/Relationship Status Dates MALIA Metcalf Attending Provider Active Start: January 26, 2025 End: January 26, 2025 Team Status: Inactive Member Role/Relationship Status Dates Dr. Radha Patrick MD Primary Care Provider Active Start: February 12, 2025 End: February 12, 2025 Dr. Radha Patrick MD Attending Provider Active Start: February 12, 2025 End: February 12, 2025 Dr. Radha Patrick MD Referring Provider Active Start: February 12, 2025 End: February 12, 2025 INFORMATION SOURCE (unrecogn ized section and content) DATE CREATED AUTHOR 07/08/2023 [facility] DATE CREATED AUTHOR AUTHOR'S ORGANIZ ATION 01/12/2024 [facility] ([place]) DATE CREATED AUTHOR AUTHOR'S ORGANIZ ATION 04/14/2025 [facility] FOR RECORDS PERTAINING TO PATIENTS WHO ARE OR HAVE BEEN ENROLLED IN A CHEMICAL DEPENDENCY/SUBSTANCEABUSE PROGRAM, SOME INFORMATION MAY BE OMITTED. This clinical summary was aggregated from multiple sources. Caution should be exercised in using it in the provision of clinical care. This summary normalizes information from multiple sources, and as a consequence, information in this document may materially change the coding, format and clinical context of patient data. In addition, data may be omitted in some cases. CLINICAL DECISIONS SHOULD BE BASED ON THE PRIMARY CLINICAL RECORDS. [employer] provides no warranty or guarantee of the accuracy or completeness of information in this document.
[2025-04-14 11:16] LABS: Follicle Stimulating Hormone 58.7 mIU/mL
== END | disposition home or self-care (01) ==
LOC: MTLAB 07:04
PROVIDERS: PCP Family Medicine; Referring Provider Nurse Practitioner Family; Visit Provider Nurse Practitioner Family
DX: N95.1 Menopausal and female climacteric states (principal)
CPT/HCPCS: 36415; 82670; 83001

== ENCOUNTER → 2025-04-22 | Outpatient (CLI) | payer OTHER, SELFPAY ==
--- NOTE | 2025-04-22 12:00 | BI_ITS ---
EXAM: SCRN MAMM (CAD)W/JACQUELINE BILAT DATE: 04/22/2025 CLINICAL HISTORY: F, Age 49 y/o , BREAST CANCER SCREENING No family history. TECHNIQUE: SCRN MAMM (CAD)W/JACQUELINE BILAT COMPARISON: Prior exam(s) dated April 20, 2024.. FINDINGS: TISSUE DENSITY: The breasts are heterogeneously dense, which may obscure small masses. Bilateral Breast Mammographic Findings: No significant masses, calcifications or other abnormalities are identified. Stable small bilateral axillary lymph nodes. No suspicious masses, areas of developing architectural distortion, or suspicious calcifications. There has been no significant interval change. BI/SCRN MAMM (CAD)W/JACQUELINE BILAT IMPRESSION: Stable bilateral screening mammogram. OVERALL FINAL ASSESSMENT BI-RADS 2: BENIGN RECOMMENDATION: Routine annual follow-up in 1 Year A letter with findings and recommendations will be mailed to the patient. Reading Location: [id number]
--- OUTSIDE RECORDS SUMMARY | 2025-04-22 17:53 | XMS RPT_ITS | CCD ---
Author Organization [facility]iniS[facility]n Care Team Providers Care Field Consultant Name Role Phone Rachelle LUCIO, [place] Primary Care Provider RADHA PATRICK Primary Care Physician [phone] ITZEL CAPONE Attending Unav ailable RADHA PATRICK Primary Care Unavailable Rachelle LUCIO, [place] Primary Care Provider Dr. Radha Patrick MD Primary Care Provider Dr. Radha Patrick MD Attending Provider Dr. Radha Patrick MD Referring Provider Dr. Jr Oviedo MD Attending Provider Yamilex Dozier Attending Provider Yamilex Dozier Referring Provider Dr. Radha Patrick MD Referring Provider Cole Mejia Attending Provider Dr. Jr Oviedo MD Referring Provider Dr. Radha Patrick MD Referring Provider Dr. Radha Patrick MD Primary Care Provider Dr. Radha Patrick MD Attending Provider Radha Patrick Primary Care Unavailable Radha Patrick Attending Unavailable Radha Patrick Referring Unavailable Radha Patrick Primary Care Unavailable Radha Patrick Attending Unavailable Radha Patrick Referring Unavailable Radha Patrick Primary Care Unavailable Yamilex Welsh Referring Unavailable Yamilex Welsh Attending Unavailable Yamilex Welsh Referring Unavailable Yamilex Welsh Attending Unavailable Miedel, Radha Primary Care Unavailable Miedel, Radha Attending Unavailable Miedel, Radha Referring Unavailable Yamilex Welsh Attending Unavailable Yamilex Welsh Referring Unavailable Miedel, Radha Primary Care Unavailable Laedel, Radha Primary Care Unavailable Miedel, Radha Attending Unavailable Mied, Radha Referring Unavailable Jr Oviedo Attending Unavailable Jr Oviedo Referring Unavailable Cole Mejia Attending Unavailable Miedel, Radha Primary Care Unavailable Yamilex Welsh Attending Unavailable Miedel, Radha Primary Care Unavailable Yamilex Welsh Attending Unavailable [facility], Radha Referring Unavailable Cole Mejia Attending Unavailable Medications Current Medications Medication Drug Class(es) Dates Sig (Normalized) Sig (Original) amLODIPine 10 mg / hydroCHLOROthiazide 12.5 mg / olmesartan medoxomil 40 mg oral tablet (7 sources) Thiazide Diuretic, Dihydropyridine Calcium Channel Lito, Angiotensin 2 Receptor Lito Start: Olmesartan-Amlodip in-Hcthiazid 40-10-12.5 mg tablet Active 1 {tbl} PO daily December 09, 2024 12:00am cholecalciferol 0.025 mg oral capsule (7 sources) Vitamin D Start: take 1 capsule by mouth once daily Cholecalciferol (Vitamin D3) 25 mcg (1,000 unit) capsule Active 25 ug PO daily December 09, 2024 12:00am 84 hr estradiol 0.53496 mg/hr transdermal system (17 sources) Estrogen Start: 5 End: 5 apply 1 dose transdermal route two times weekly, then apply 1 dose transdermal route every hour Estradiol (Vane) 0.05 mg/24 hr patch semiweekly Active 1 NMA TD TWICE A WEEK 8 April 22, 2025 10:19am apply 1 patch for 3 days alternating with 1 patch for 4 days each week. Start: 01-06-2025 End: 02-04-2025 Estradiol 0.0375 mg/24 hr pa [facility] semiweekly Discontinued 1 NMA TD TWICE A [...] 12/07/2019 06/14/2021 Discontinued (Course of therapy completed) fluticasone propionate 0.05 mg/actuat metered dose nasal spray (4 sources) Corticosteroid Start: 12-22-2020 take 2 spray(s) by mouth once daily fluticasone (FLONASE) 50 mcg/actuation nasal spray Indications: Dysfunction of Eustachian tube, unspecified laterality Use 2 Sprays in each nostril once daily. Rinse mouth after use. 1 Bottle 12/22/2020 Active Comment on above: Use 2 Sprays in each nostril once daily. Rinse mouth after use. folic acid 0.4 mg oral tablet (7 sources) Start: 12-09-2024 take 0.4 mg by mouth once daily Folic Acid 400 mcg tablet Active 0.4 mg PO daily December 09, 2024 12:00am magnesium oxide 500 mg oral capsule (7 sources) Start: 12-09-2024 take 1 capsule by mouth once daily Magnesium Oxide 500 mg capsule Active 500 mg PO daily December 09, 2024 12:00am mecobalamin (7 sources) Start: 12-09-2024 Mecobalamin (Vitamin B12) 2,500 mcg tablet,chewable Active ug PO December 09, 2024 12:00am meloxicam 15 mg oral tablet (7 sources) Nonsteroidal Anti-inflammatory Drug Start: 12-09-2024 take 1 tablet by mouth once daily Meloxicam 15 mg tablet Active 15 mg PO daily December 09, 2024 12:00am olmesartan medoxomil 40 mg oral tablet (5 sources) Angiotensin 2 Receptor Lito Start: 12-22-2020 take 1 tablet by mouth once daily olmesartan (BENICAR) 40 mg tablet Take 1 tablet by mouth once daily. 30 tablet 12/22/2020 Active Comment on above: Take 1 tablet by lynette th once daily. pantoprazole 40 mg delayed release oral tablet (7 sources) Proton Pump Inhibitor Start: 12-09-2024 take 1 tablet by mouth once daily Pantoprazole 40 mg tablet,delayed release (DR/EC) Active 40 mg PO daily December 09, 2024 12:00am phentermine hydrochloride 37.5 mg oral capsule (18 sources) Sympathomimetic Amine Anorectic Start: 12-09-2024 take 1 capsule by mouth once daily [...] 2018 11:13am progesterone 100 mg oral capsule (14 sources) Progesterone Start: 12-09-2024 End: 04-22-2025 take 1 capsule by mouth at bedtime Progesterone Micronized (Prometrium) 100 mg capsule Active 100 mg PO AT BEDTIME 30 April 22, 2025 10:15am Completed/Discontinued Medications Medication Drug Class(es) Dates Sig (Normalized) Sig (Original) Estradiol (Vivelle-Dot) 0.05 mg/24 hr patch semiweekly (3 sources) Start: 02-04-2025 End: 03-29-2025 apply 1 dose transdermal route two times weekly, then apply 1 dose transdermal route every hour Estradiol (Vivelle-Dot) 0.05 mg/24 hr patch semiweekly Discontinued 1 NMA TD TWICE A WEEK 8 February 04, 2025 12:00am March 29, 2025 9:00am apply 1 patch for 3 days alternating with 1 patch for 4 days each week Start: 02-04-2025 apply 1 dose transde rmal route two times weekly, then apply 1 dose transdermal route every hour Estradiol (Vivelle-Dot) 0.05 mg/24 hr patch semiweekly Active 1 NMA TD TWICE A WEEK 8 1 February 04, 2025 12:00am apply 1 patch for 3 days alternating with 1 patch for 4 days each week folic acid 0.4 mg / vitamin b12 0.5 mg oral tablet (11 sources) Vitamin B12 Start: 05-22-2018 End: 12-09-2024 take 1 tablet by mouth once daily Vitamin C42-Gkiqh Acid 500-400 mcg tablet Discontinued 1 {tbl} PO .COMPLEX May 22, 2018 12:00am December 09, 2024 10:16am 1 tab PO 500 B 12 with 800 folic acid once daily ketorolac tromethamine 10 mg oral tablet (15 sources) Nonsteroidal Anti-inflammatory Drug, Cyclooxygenase Inhibitor Start: 05-28-2017 End: 05-22-2018 take 1 tablet by mouth every six hours as needed Ketorolac 10 mg tablet Discontinued 10 mg PO EVERY 6 HOURS as needed May 19, 2018 12:00am May 22, 2018 11:12am Comment on above: Take 1 tablet by lynette every 6 hours as needed. losartan potassium 50 mg oral tablet (11 sources) Angiotensin 2 Receptor Lito Start: 05-19-2018 End: 12-09-2024 take 1 tablet by mouth once daily Losartan 50 mg tablet Discontinued 50 mg PO DAILY May 19, 2018 12:00am December 09, 2024 10:15am nitrofurantoin, macrocrystals 25 mg / nitrofurantoin, monohydrate 75 mg oral capsule (5 sources) Nitrofuran Antibacterial Start: 01-26-2025 End: 01-31-2025 take 1 capsule by mouth every twelve hours at mealtime Nitrofurantoin Monohyd/M-Cryst (Macrobid) 100 mg capsule Discontinued 100 mg PO Q12H 10 5 0 January 26, 2025 12:00am January 30, 2025 12:00am January 31, 2025 12:08am must administer with a meal/food sulfacetamide sodium 100 mg/ml / sulfur 45 mg/ml medicated liquid soap (11 sources) Sulfonamide Antibacterial Start: 05-19-2018 End: 12-09-2024 Sulfacetamide Sodium-Sulfur (Rosula) 10-4.5 % cleanser Discontinued 1 NMA TOPICAL DAILY May 19, 2018 12:00am December 09, 2024 10:16am Start: 05-19-2018 Sulfacetamide Sodium-Sulfur (Rosula) 10-4.5 % cleanser Active 1 APPLIC TOPICAL DAILY May 19, 2018 12:00am ZOLMitriptan 5 mg oral tablet (16 sources) Serotonin-1b and Serotonin-1d Receptor Agonist Start: [...] Da te Episodic/Chronic Contraceptive and procreative management (20 sources) Patient encounter status; Translations: [Encounter for sterilization] Onset: 08-02-2005 08-02-2005 Episodic Essential hypertension (11 sources) Hypertensive disorder; Translations: [Essential (primary) hypertension] 05-19-2018 Chronic Genitourinary symptoms and ill-defined conditions (1 source) Dysuria; Translations: [Dysuria] Onset: 01-28-2025 Episodic Headache; including migraine (15 sources) Menstrual migraine; Translations: [Menstrual migraine, not intractable, without status migrainosus] Onset: 05-28-2006 08-21-2021 Chronic Menopausal disorders (17 sources) Premature menopause; Translations: [Asymptomatic premature menopause] Onset: 04-27-2015 04-27-2015 Chronic Menstrual disorders (20 sources) Dysmenorrhea; Translations: [Dysmenorrhea, unspecified] Onset: 07-03-2011 07-03-2011 Chronic Nonspecific chest pain (11 sources) Chest pain; Translations: [Chest pain, unspecified] 11-27-2018 Episodic Other gastrointestinal disorders (15 sources) Irritable bowel syndrome; Translations: [Irritable bowel syndrome without diarrhea] Onset: 05-28-2006 05-28-2006 Chronic Other inflammatory condition of skin (11 sources) Rosacea; Translations: [Rosacea, unspecified] 05-19-2018 Chronic Other lower respiratory disease (1 source) Cough; Translations: [Cough] 05-16-2021 Episodic Other nutritional; endocrine; and metabolic disorders (4 sources) Obesity; Translations: [Obesity, unspecified] Onset: 02-23-2008 02-23-2008 Chronic Other screening for suspected conditions (not mental disorders or infectious disease) (5 sources) Encounter for screening for malignant neoplasm of cervix; Translations: [Encounter for other screening for malignant neoplasm of breast] Onset: 12-04-2023 Episodic Otitis media and related conditions (15 sources) Dysfunction of eustachian tube; Translations: [Other specified disorders of Eustachian tube, unspecified ear] 06-22-2011 Episodic Residual codes; unclassified (11 sources) History of chest pain; Translations: [Personal history of other specified conditions] 11-27-2018 Episodic Residual codes; unclassified (11 sources) Family history of ischemic heart disease; Translations: [Family history of ischemic heart disease and other diseases of the circulatory system] 05-19-2018 Episodic Residual codes; unclassified (11 sources) History of endometrial ablation; Translations: [Other specified postprocedural states] 05-19-2018 Episodic Residual codes; unclassified (1 source) Encounter for cosmetic surgery; Translations: [Encounter for cosmetic surgery] Onset: 02-03-2025 Episodic Spondylosis; intervertebral disc disorders; other back problems (15 sources) Sciatica; Translations: [Sciatica, unspecified side] Onset: [...] [Hyperacusis, unspecified ear] Onset: 02-25-2009 02-25-2009 Episodic Results Test Name Value Interpretation Reference Range Facility Estradiolon 04-14-2025 ESTRADIOL 8.7 pg/mL Normal [facility] Comment on above: Result Comment: [...] by age 19. Performed By: #### L 3100.5125, L3300.1750 ####[facility] [id number] [place], [place], [id number] Follicle Stimulating Hormone on 04-14-2025 FSH 58.7 mIU/mL Normal [facility] Comment on above: Result Comment: FEMA LE: Follicular: 1.4 - 18.1 mIU/mL Midcycle: 3.4 - 33.4 mIU/mL Luteal: 1.5 - 9.1 mIU/mL Post Menopause: 23.0 - 116.3 mIU/mL MALE: 1.4 - 18.1 mIU/mL Performed By: #### L 3100.5125, [id number] ####[facility] [id number] [place], [place], [id number] Serum or plasma estradiol me asurement after follitropin dose (mass/volume)Ordered By: Yamilex Welsh on 04-14-2025 E2 post dose follitropin [Mass/Vol] 8.7 pg/mL [facility] Comment on above: FEMALES ADULT [...] (adult) should be reached by age 18. Absolute lymphocyte countOrd ered By: Radha Patrick on 02-12-2025 Lymphocytes Auto (Unsp spec) [#/Vol] 2.66 10*3/uL 0.83-4.51 [facility] Absolute neutrophil countOrd ered By: Radha Patrick on 02-12-2025 Neutrophils (Bld) [#/Vol] 3.7 10*3/uL 2.0-7.7 [facility] Anion gap in Serum or Plasma Ordered By: Radha Patrick on 02-12-2025 Anion gap [Moles/Vol] 13 mmol/L 01-07 [facility] Automated lymphocyte count a s percentage of total leukocytesOrdered By: Radha Patrick on 02-12-2025 Lymphocytes/100 WBC Auto (Unsp spec) 36.3 % [facility] BUN/creatinine ratioOrdered By: Radha Patrick on 02-12-2025 Urea nitrogen/Creatinine [Mass ratio] 16.2 mg/mg 06-14 [facility] Basophil percentageOrdered B y: Radha Patrick on 02-12-2025 Basophils/100 WBC (Bld) 0.7 % 0- [facility] Bilirubin, totalOrdered By: Radha Patrick on 02-12-2025 Bilirubin [Mass/Vol] 0.31 mg/dL 0.00-1.30 [facility] CBC W/Diff, Automatedon 01-25 Absolute Lymph 2.66 X10 3/uL Normal 0.83-4.51 [facility] Comment on above: Performed By: #### L 100.0100, L500.4050, L500.4100, [id number] #### [facility] [address] [place], [address] Absolute Neut 3.7 X10 3/uL Normal 2.0-7.7 [facility] Comment on above: Performed By: #### L 100.0100, L500.4050, L500.4100, [id number] #### [facility] [address] [place], [address] Basophils/100 WBC (Bld) 0.7 % Normal 0-1 [facility] Comment on above: Performed By: #### L 100.0100, L500.4050, L500.4100, [id number] #### [facility] [address] [place], [address] Eosinophils/100 WBC (Bld) 1.8 % Normal 0-5 [facility] Comment on above: Performed By: #### L 100.0100, L500.4050, L500.4100, [id number] #### [facility] [address] [place], [address] Erythrocyte distribution width (RBC) [Ratio] 13.0 % Normal 11.6-14.6 [facility] Comment on above: Performed By: #### L 100.0100, L500.4050, L500.4100, [id number] #### [facility] [address] [place], [address] Hematocrit (Bld) [Volume fraction] 42.2 % Normal 37-47 [facility] Comment on above: Performed By: #### L 100.0100, L500.4050, L500.4100, [id number] #### [facility] [address] [place], [address] Hemoglobin (Bld) [Mass/Vol] 13.8 g/dL Normal 12.0-15.0 [facility] Comment on above: Performed By: #### L 100.0100, L500.4050, L500.4100, [id number] #### [facility] [address] [place], [address] IG% 0.300 Normal 0.0-0.9 [facility] Comment on above: Result Comment: IG% - Immature Granulocytes (promyelocytes, myelocytes and metamyelocytes) > 1% indicates that a LEFT SHIFT is Present. Performed By: #### L 100.0100, L500.4050, L500.4100, [id number] #### [facility] [address] [place], [address] Lymphocytes/100 WBC (Bld) 36.3 % Normal 19-41 [facility] Comment on above: Performed By: #### L 100.0100, [id number], L500.4100, [id number] #### [facility] [address] [place], [address] MCH (RBC) [Entitic mass] 29.7 pg Normal 27.0-32.0 [facility] Comment on above: Performed By: #### L 100.0100, [id number], L500.4100, [id number] #### [facility] [address] [place], [address] MCHC (RBC) [Mass/Vol] 32.7 g/dL Normal 32-36 [facility] Comment on above: Performed By: #### L 100.0100, [id number], L500.4100, [id number] #### [facility] [address] [place], [address] MCV (RBC) [Entitic vol] 90.8 fL Normal 81-99 [facility] Comment on above: Performed By: #### L 100.0100, [id number], L500.4100, [id number] #### [facility] [address] [place], [address] Monocytes/100 WBC (Bld) 10.8 % High 0-10 [facility] Comment on above: Performed By: #### L 100.0100, L500.4050, L500.4100, [id number] #### [facility] [address] [place], [address] Neutrophils/100 WBC (Bld) 50.1 % Normal 47-70 [facility] Comment on above: Performed By: #### L 100.0100, L500.4050, L500.4100, [id number] #### [facility] [address] [place], [address] Nucleated RBC (Bld) [#/Vol] 0 10*3/uL Normal 0-5 [facility] Comment on above: Performed By: #### L 100.0100, L500.4050, L500.4100, [id number] #### [facility] [address] [place], [address] Platelet mean volume (Bld) [Entitic vol] 9.9 fL Normal 6.2-12.0 [facility] Comment on above: Performed By: #### L 100.0100, L500.4050, L500.4100, [id number] #### [facility] [address] [place], [address] Platelets (Bld) [#/Vol] 347 10*3/uL Normal 150-450 [facility] Comment on above: Performed By: #### L 100.0100, L500.4050, L500.4100, [id number] #### [facility] [address] [place], [address] RBC (Bld) [#/Vol] 4.65 10*6/uL Normal 4.2-5.4 [facility] Comment on above: Performed By: #### L 100.0100, [id number], L500.4100, [id number] #### [facility] [address] [place], [address] RDW SD 42.8 fl Normal 35.1-43.9 [facility] Comment on above: Performed By: #### L 100.0100, [id number], L500.4100, [id number] #### [facility] [address] [place], [address] WBC (Bld) [#/Vol] 7.3 10*3/uL Normal 4.4-11.0 [facility] Comment on above: Performed By: #### L 100.0100, [id number], L500.4100, [id number] #### [facility] [address] [place], [address] Calculated very low density lipoprotein (VLDL) cholesterol measurementOrdered By: Radha Patrikc on 02-12-2025 Calculated very low density lipoprotein (VLDL) cholesterol measurement 32 mg/dL 5-40 [facility] Carbon dioxide, total [Moles /volume] in Central venous bloodOrdered By: Radha aPtrick on 02-12-2025 CO2 [Moles/Vol] 27.3 mmol/L 21.0-32.0 [facility] Chloride assayOrdered By: Maycol Patrick on 02-12-2025 Chloride [Moles/Vol] 100 mmol/L 98-108 [facility] Comprehensive Metabolic Prof ilon 02-12-2025 Albumin [Mass/Vol] 4.3 g/dL Normal 3.5-5.0 [facility] Comment on above: Performed By: #### L 100.0100, L500.4050, L500.4100, [id number] #### [facility] [address] [place], [address] Albumin/Globulin [Mass ratio] 1.4 {ratio} Normal 0.9-2.4 [facility] Comment on above: Performed By: #### L 100.0100, L500.4050, L500.4100, [id number] #### [facility] [address] [place], [address] ALK PHOS 70 U/L Normal 35-104 [facility] Comment on above: Performed By: #### L 100.0100, L500.4050, L500.4100, [id number] #### [facility] [address] [place], [address] ALT [Catalytic activity/Vol] 38 U/L High <=34 [facility] Comment on above: Performed By: #### L 100.0100, L500.4050, L500.4100, [id number] #### [facility] [address] [place], [address] AST [Catalytic activity/Vol] 27 U/L Normal <=31 [facility] Comment on above: Performed By: #### L 100.0100, L500.4050, L500.4100, [id number] #### [facility] [address] [place], [address] Bilirubin [Mass/Vol] 0.31 mg/dL Normal 0.00-1.30 [facility] Comment on above: Performed By: #### L 100.0100, L500.4050, L500.4100, [id number] #### [facility] [address] [place], [address] BUN/CRE 16.2 RATIO Normal 10-20 [facility] Comment on above: Performed By: #### L 100.0100, [id number], L500.4100, [id number] #### [facility] [address] [place], [address] Calcium [Mass/Vol] 9.6 mg/dL Normal 7.6-11.0 [facility] Comment on above: Performed By: #### L 100.0100, L500.4050, L500.4100, [id number] #### [facility] [address] [place], [address] Chloride [Moles/Vol] 100 mmol/L Normal 98-108 [facility] Comment on above: Performed By: #### L 100.0100, L500.4050, L500.4100, [id number] #### [facility] [address] [place], [address] CO2 [Moles/Vol] 27.3 mmol/L Normal 21.0-32.0 [facility] Comment on above: Performed By: #### L 100.0100, L500.4050, L500.4100, [id number] #### [facility] [address] [place], [address] Creatinine [Mass/Vol] 0.85 mg/dL Normal 0.70-1.20 [facility] Comment on above: Performed By: #### L 100.0100, L500.4050, L500.4100, [id number] #### [facility] [address] [place], [address] GAP 13 Normal 5-15 [facility] Comment on above: Performed By: #### L 100.0100, L500.4050, L500.4100, [id number] #### [facility] [address] [place], [address] GFR/1.73 sq M.predicted among non-blacks MDRD (S/P/Bld) [Vol rate/Area] 85 mL/min/{1.73_m2} Normal >60 [facility] Comment on above: Result Comment: mL/m in/1.73m2 CKD-EPI Creatinine Equation (2020) Performed By: #### L 100.0100, L500.4050, L500.4100, [id number] #### [facility] [address] [place], [address] Globulin (S) [Mass/Vol] 3.0 g/dL Normal 2.2-4.2 [facility] Comment on above: Performed By: #### L 100.0100, L500.4050, L500.4100, [id number] #### [facility] [address] [place], [address] Glucose [Mass/Vol] 101 mg/dL High 70-99 [facility] Comment on above: Performed By: #### L 100.0100, L500.4050, L500.4100, [id number] #### [facility] [address] [place], [address] Potassium [Moles/Vol] 3.7 mmol/L Normal 3.3-5.1 [facility] Comment on above: Performed By: #### L 100.0100, L500.4050, L500.4100, [id number] #### [facility] [address] [place], [address] Sodium [Moles/Vol] 140 mmol/L Normal 133-145 [facility] Comment on above: Performed By: #### L 100.0100, L500.4050, L500.4100, [id number] #### [facility] [address] [place], [address] T PROT 7.3 g/dL Normal 5.9-8.4 [facility] Comment on above: Performed By: #### L 100.0100, L500.4050, L500.4100, [id number] #### [facility] [address] [place], [address] Urea nitrogen [Mass/Vol] 14 mg/dL Normal 4-19 [facility] Comment on above: Performed By: #### L 100.0100, L500.4050, L500.4100, [id number] #### [facility] [address] [place], [address] Eosinophil percentageOrdered By: Radha Patrick on 02-12-2025 Eosinophils/100 WBC (Bld) 1.8 % 0-5 [facility] Erythrocyte distribution wid th ratioOrdered By: Radha Patrick on 02-12-2025 Erythrocyte distribution width (RBC) [Ratio] 13.0 % 11.6-14.6 [facility] Erythrocyte distribution wid th standard deviationOrdered By: Radha Patrick on 02-12-2025 Erythrocyte distribution width (RBC) [Ratio] 42.8 fl 35.1-43.9 [facility] Glomerular filtration rate ( GFR) estimation/1.73 sq m using serum, plasma, or whole bOrdered By: Radha Patrick on 02-12-2025 GFR/1.73 sq M.predicted among non-blacks MDRD (S/P/Bld) [Vol rate/Area] 85 mL/min/{1.73_m2} >60 [facility] Comment on above: mL/min/1.73m2 CKD-EP I Creatinine Equation (2020) HIP, UNI W/ Pelvis 2-3 Views on 02-12-2025 HIP, UNI W/ Pelvis 2-3 Views [facility] Services [address] [place], [place] [address] HIP, UNI W/ Pelvis 2-3 Views MR#: [id number] Acct: [id number] Name: GUERLINE CHAMBERLAIN Rep #: [id number] : 1975 F 49 From: Jermain Tejada MD PCP: Dr. Radha Patrick MD Status: REG CLI Study: HIP, UNI W/ Pelvis 2-3 Views Date of Exam: Exam# [id number] Ordering Dr: Radha Patrick MD EXAM: XR Right Hip With [...] Views IMPRESSION: No acute fracture. Reading Location: [id number] CC: Dr. Radha Patrick MD Multimedia Editor: Signed Normal [facility] Hematocrit Auto (Bld) [Volum e fraction]Ordered By: Radha Patrick on 02-12-2025 Hematocrit (Bld) [Volume fraction] 42.2 % 37-47 [facility] Hemoglobin measurementOrdere d By: Radha Patrick on 02-12-2025 Hemoglobin (Bld) [Mass/Vol] 13.8 g/dL 12.0-15.0 [facility] Immature granulocytes/100 WB C Auto (Bld)Ordered By: Radha Patrick on 02-12-2025 Immature granulocytes/100 WBC (Bld) 0.300 % 0.0-0.9 [facility] Comment on above: IG% - Immature Granu locytes (promyelocytes, myelocytes and metamyelocytes) > 1% indicates that a LEFT SHIFT is Present. LDL calc ser/plasOrdered By: Radha Patrick on 02-12-2025 Cholesterol in LDL [Mass/Vol] 146 mg/dL [facility] Comment on above: Qexfxlenea=660-528 m g/dL & Higher Tqwm=401 mg/dL or greater Laboratory - Chemistry and C hemistry - challengeOrdered By: Radha Patrick on 02-12-2025 AST [Catalytic activity/Vol] 27 U/L <32 [facility] Lipid Profileon 02-12-2025 CHOL:HDL 4.78 Normal [facility] Comment on above: Performed By: #### L 100.0100, L500.4050, L500.4100, L501.9520 ####[facility] [address] [place], [place], [id number] Cholesterol [Mass/Vol] 225 mg/dL High <=200 [facility] Comment on above: Result Comment: Chol esterol level, Desirable <200 mg/dL Borderline high cholesterol 200-239 mg/dL High cholesterol >=240 mg/dL Recommendations of the NCEP Adult Treatment Panel for the following risk-cutoff thresholds for the [place] population. Performed By: #### L 100.0100, L500.4050, L500.4100, L501.9520 ####[facility] [address] [facility] [address] [place], [place], [id number] Cholesterol in HDL [Mass/Vol] 47 mg/dL Normal [facility] Comment on above: Result Comment: Maribel onal Cholesterol Education Program (NCEP) guidelines: <40 mg/dL: Low HDL-cholesterol (major risk factor for CHD) >= 60 mg/dL: High HDL-cholesterol (negative risk factor for CHD) HDL-cholesterol is affected by a number of factors, e.g. smoking, exercise, hormones, sex and age. Performed By: #### L 100.0100, L500.4050, L500.4100, L501.9520 ####[facility] [address] [place], [address] Cholesterol in LDL [Mass/Vol] 146 mg/dL Normal [facility] Comment on above: Result Comment: Bord vjvamc=505-958 mg/dL Higher Smlg=478 mg/dL or greater Performed By: #### L 100.0100, L500.4050, L500.4100, L501.9520 ####[facility] [address] [place], [address] Cholesterol in VLDL [Mass/Vol] 32 mg/dL Normal 5-40 [facility] Comment on above: Performed By: #### L 100.0100, L500.4050, L500.4100, L501.9520 ####[facility] [address] [place], [address] Triglyceride [Mass/Vol] 161 mg/dL Normal [facility] Comment on above: Result Comment: The drugs N-Acetylcysteine and Metamizole may falsely depress this assay. Normal range: <150 mg/dL Borderline High: 150-199 mg/dL High: 200-499 mg/dL Very High: >500 mg/dL Performed By: #### L 100.0100, L500.4050, L500.4100, L501.9520 ####[facility] [address] [place], [address] MCV (mean corpuscular volume ) determinationOrdered By: Radha Patrick on 02-12-2025 MCV (RBC) [Entitic vol] 90.8 fL 81-99 [facility] Mean corpuscular hemoglobin (MCH) determinationOrdered By: Radha Patrick on 02-12-2025 MCH (RBC) [Entitic mass] 29.7 pg 27.0-32.0 [facility] Mean corpuscular hemoglobin concentration (MCHC) determinationOrdered By: Radha Patrick on 02-12-2025 MCHC (RBC) [Mass/Vol] 32.7 g/dL 32-36 [facility] Mean platelet volume determi nationOrdered By: Radha Patrick on 02-12-2025 Platelet mean volume (Bld) [Entitic vol] 9.9 fL 6.2-12.0 [facility] Monocyte percentageOrdered B y: Radha Patrick on 02-12-2025 Monocytes/100 WBC (Bld) 10.8 % High 0-10 [facility] Neutrophil percentageOrdered By: Radha Patrick on 02-12-2025 Neutrophils/100 WBC (Bld) 50.1 % 47-70 [facility] Nucleated red blood cell per centageOrdered By: Radha Patrick on 02-12-2025 Nucleated RBC/100 WBC (Bld) [Ratio] 0 % 0-5 [facility] Platelet countOrdered By: Maycol Patrick on 02-12-2025 Platelets (Bld) [#/Vol] 347 10*3/uL 150-450 [facility] Potassium measurement (mass/ volume)Ordered By: Radha Patrick on 02-12-2025 Potassium (Unsp spec) [Mass/Vol] 3.7 mmol/L 3.3-5.1 [facility] RBC Auto (Bld) [#/Vol]Ordere d By: Radha Patrick on 02-12-2025 RBC (Bld) [#/Vol] 4.65 10*6/uL 4.2-5.4 [facility] Screening total cholesterol/ high density lipoprotein (HDL) cholesterol ratioOrdered By: Radha Patrick on 02-12-2025 Cholesterol.total/Chol esterol in HDL [Mass ratio] 4.78 {ratio} [facility] Serum creatinine measurement (mass/volume)Ordered By: Radha Patrick on 02-12-2025 Creatinine [Mass/Vol] 0.85 mg/dL 0.70-1.20 [facility] Serum globulin measurementOr dered By: Radha Patrick on 02-12-2025 Globulin (S) [Mass/Vol] 3.0 g/dL 2.2-4.2 [facility] Serum glucose measurement (m ass/volume)Ordered By: Radha Patrick on 02-12-2025 Glucose [Mass/Vol] 101 mg/dL High 70-99 [facility] Serum or plasma alanine wayne otransferase (ALT) measurementOrdered By: Radha Patrick on 02-12-2025 ALT [Catalytic activity/Vol] 38 U/L High <35 [facility] Serum or plasma albumin shelli urement (mass/volume)Ordered By: Radha Patrick on 02-12-2025 Albumin [Mass/Vol] 4.3 g/dL 3.5-5.0 [facility] Serum or plasma albumin/glob ulin mass ratioOrdered By: Radha Patrick on 02-12-2025 Albumin/Globulin [Mass ratio] 1.4 {ratio} 0.9-2.4 [facility] Serum or plasma alkaline chelsea sphatase measurementOrdered By: Radha Patrick on 02-12-2025 ALP [Catalytic activity/Vol] 70 U/L 35-104 [facility] Serum or plasma calcium shelli urement (mass/volume)Ordered By: Radha Patrick on 02-12-2025 Calcium [Mass/Vol] 9.6 mg/dL 7.6-11.0 [facility] Serum or plasma cholesterol in HDL measurement (mass/volume)Ordered By: Radha Patrick on 02-12-2025 Cholesterol in HDL [Mass/Vol] 47 mg/dL >40 [facility] Comment on above: National Cholesterol Education Program (NCEP) guidelines:<40 mg/dL: Low HDL-cholesterol (major risk factor for CHD)>= 60 mg/dL: High HDL-cholesterol (negative risk factor for CHD)HDL-cholesterol is affected by a number of factors, e.g. smoking, exercise, hormones, sex and age. Serum or plasma cholesterol measurement (mass/volume)Ordered By: Radha Patrick on 02-12-2025 Cholesterol [Mass/Vol] 225 mg/dL High <201 [facility] Comment on above: Cholesterol level, D esirable <200 mg/dLBorderline high cholesterol 200-239 mg/dLHigh cholesterol >=240 mg/dLRecommendations of the NCEP Adult Treatment Panel for the following risk-cutoff thresholds for the [place] population. Serum or plasma urea nitroge n measurement (mass/volume)Ordered By: Radha Patrick on 02-12-2025 Urea nitrogen [Mass/Vol] 14 mg/dL 4-19 [facility] Sodium levelOrdered By: Coco Patrick on 02-12-2025 Sodium [Moles/Vol] 140 mmol/L 133-145 [facility] TSH DL <= 0.005 mIU/L QnOrde red By: Radha Patrick on 02-12-2025 TSH Qn 2.830 uIU/mL 0.300-4.20 0 [facility] Thyroid Stim Hormone (TSH)on 02-12-2025 TSH 2.830 uIU/mL Normal 0.300-4.20 0 [facility] Comment on above: Performed By: #### L 100.0100, L500.4050, L500.4100, L501.9520 ####[facility] [address] [place], [place], [id number] Total proteinOrdered By: Hector Patrick on 02-12-2025 Protein [Mass/Vol] 7.3 g/dL 5.9-8.4 [facility] Triglycerides measurementOrd ered By: Radha Patrick on 02-12-2025 Triglyceride [Mass/Vol] 161 mg/dL <199 [facility] Comment on above: The drugs N-Acetylcy steine and Metamizole may falsely depress this assay. Normal range: <150 mg/dLBorderline High: 150-199 mg/dLHigh: 200-499 mg/dLVery High: >500 mg/dL White blood cell (WBC) count Ordered By: Radha Patrick on 02-12-2025 WBC (Bld) [#/Vol] 7.3 10*3/uL 4.4-11.0 [facility] Urine Cultureon 01-28-2025 URC Escherichia coli [place] Count >100,000 Escherichia coli: REACTION Ampicillin Islt [...] TMP SMX Islt SANJAY <=20 S Normal [facility] Comment on above: Performed By: #### M 100.2200 #### [facility] [address] [place], [address] Laboratory - Chemistry and C hemistry - challengeOrdered By: Cole Rodarte on 01-26-2025 Bilirubin Ql (U) Negative [facility] Glucose Ql (U) Negative [facility] Ketones Ql (U) Negative [facility] pH (U) 7.5 [pH] [facility] Specific gravity (U) [Rel density] 1.010 [facility] Urobilinogen (U) [Mass/Vol] 0.9835982 mg/dL [facility] Laboratory - Hematology and Cell countsOrdered By: Cole Rodarte on 01-26-2025 Hemoglobin Ql (U) Hemolyzed [facility] Laboratory - Specimen inform ationOrdered By: Cole Rodarte on 01-26-2025 Clarity (U) Cloudy [facility] Color (U) Arely [facility] Laboratory - UrinalysisOrder ed By: Cole Rodarte on 01-26-2025 Nitrite Ql (U) Positive [facility] Protein Ql (U) 2+ [facility] No Panel InformationOrdered By: Cole Rodarte on 01-26-2025 Urine Leukocytes Positive [facility] Urine Non-Hemolyzed Blood Large [facility] Urgent Care Visit Reporton 0 01-26-2025 Urgent Care Visit Report [facility] [address] , [address] [place], [place] [id number] OFFICE VISIT Date of Service: 01/26/25 MR#: [id number] Acct: [id number] Name: GUERLINE CHAMBERLAIN Rep #: [id number] : 1975 Provider: MALIA Kelly Age/Sex: 49/F Location: [facility] Status: Signed Intake Vital Signs 01/06/25 13:02 [...] blood and painful urination since last night. [facility] Medical History H/O recurrent pneumonia Osteoarthritis Chronic [...] color/ character of urine or stool. No [id number] products taken to assist. No other associated [...] as instructed (more content not included)... Normal [facility] Urine cultureOrdered By: Agustin Rodarte on 01-26-2025 Bacteria identified Cx Nom (U) Escherichia coli Abnormal [facility] Estradiolon 01-06-2025 ESTRADIOL 7.0 pg/mL Normal [facility] Comment on above: Result Comment: [...] Performed By: #### L 3300.1750, L3100.5125 #### [facility] [address] [place], [place], [address] Follicle Stimulating Hormone on 01-06-2025 FSH 62.3 mIU/mL Normal [facility] Comment on above: Result Comment: [...] Performed By: #### L 3300.1750, L3100.5125 #### [facility] [address] 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 Normal [facility] Serum or plasma estradiol me asurement after follitropin dose (mass/volume)Ordered By: Yamilex Welsh on 01-06-2025 E2 post dose follitropin [Mass/Vol] 7.0 pg/mL [facility] Comment on above: FEMALES ADULT [...] Report on 01-01-2025 Plastic Surgery Visit Report [facility] [address], [address] [place] [address] OFFICE VISIT Date of Service: 01/01/25 MR#: [id number] Acct: [id number] Name: GUERLINE CHAMBERLAIN Rep #: [id number] : 1975 Provider: Dr. Jr Oviedo MD Age/Sex: 49/F Location: [facility] Status: Signed Intake Vital Signs 01/01/25 10:45 [...] No numb (more content not included)... Normal [facility] Thyroidon 09-22-2024 Thyroid [facility] [address] [place] [address] Thyroid MR#: [id number] Acct: [id number] Name: GUERLINE CHAMBERLAIN Rep #: [id number] : 1975 F 48 From: Scott ward MD PCP: Dr. Radha Patrick MD Status: REG CLI Study: Thyroid Date of Exam: 09/22/24 Exam# [id number] Ordering Dr: Radha Patrick MD PROCEDURE: Thyroid [...] mm right cervical lymph node. Reading Location: [place] [address] CC: Dr. Radha Patrick MD Multimedia Editor: Signed Normal [facility] Lift Manager Cytology Reporton 2023 Lift Manager Cytology Report . Pathology Reports Accession: Collected Date/Time: Received Date/Time: Pathologist: [id number] 12/04/2023 11:01 EDT 12/04/2023 18:00 EDT L[facility] Manager Cytology Report SPECIMEN: Specimen Description: Liquid Prep [...] and evaluated with the assistance of the [employer]in[employer] Test Imaging System. Pathology Reports Accession: Collected Date/Time: Received Date/Time: Pathologist: [id number] 12/04/2023 11:01 EDT 12/04/2023 18:00 EDT Electronically Signed by Pathology report verified by [facility] Screened by: DW Electronically signed by Corina Alva Sign-Out Date: 12/13/2023 09:01 Performing Lab: [facility], [address] [place] [address] Pathology Dept Disclaimer The Pap test is a screening test for cervical cancer. As evidenced by published data, it is subject to both inherent false negative and false positive results. Your patient's results should be interpreted in context with pertinent clinical history including gynecological examination. Normal [facility] ([place]) Basophil percentageOrdered B y: Itzel Berg on 12-12-2023 Glucose [Mass/Vol] 134 mg/dL 74-106 [facility] Comment on above: Fasting Glucose resu lt greater than or equal to 126 mg/dL suggests DIABETES MELLITUS per A.D.A. criteria. Hemoglobin (Bld) [Mass/Vol] 13.8 g/dL 12.0-15.0 [facility] WBC (Bld) [#/Vol] 6.3 10*3/uL 4.4-11.0 [facility] Determination of erythrocyte mean corpuscular volume (MCV)Ordered By: Itzel Berg on 12-12-2023 MCV (RBC) [Entitic vol] 89.9 fL 81-99 [facility] Erythrocyte distribution wid th ratioOrdered By: Itzeldeven Berg on 12-12-2023 Erythrocyte distribution width (RBC) [Ratio] 13.3 % 11.6-14.6 [facility] Erythrocyte distribution wid th standard deviationOrdered By: Itzeldeven Berg on 12-12-2023 Erythrocyte distribution width (RBC) [Entitic vol] 44.3 fL 35.1-43.9 [facility] Hematocrit Auto (Bld) [Volum e fraction]Ordered By: Itzel Berg on 12-12-2023 Hematocrit (Bld) [Volume fraction] 42.5 % 37-47 [facility] Laboratory - Hematology and Cell countsOrdered By: Itzel Berg on 12-12-2023 MCH (RBC) [Entitic mass] 29.2 pg 27.0-32.0 [facility] MCHC (RBC) [Mass/Vol] 32.5 g/dL 32-36 [facility] Platelet mean volume (Bld) [Entitic vol] 10.2 fL 6.2-12.0 [facility] Platelets (Bld) [#/Vol] 338 10*3/uL 150-450 [facility] No Panel InformationOrdered By: Itzel Berg on 12-12-2023 Estradiol (E2) Level 15.4 pg/mL [facility] Comment on above: NORMAL REFERENCE RAN [...] ESTRADIOL CONCENTRATION. Follicle Stimulating Hormone 63.2 mIU/mL [facility] Comment on above: NORMAL REFERENCE RAN GES FEMALE FOLLICULAR 2.3 - 12.6 mIU/mL MID-CYCLE PEAK 5.2 - 17.5 mIU/mL LUTEAL 1.7 - 12.9 mIU/mL POST-MENOPAUSAL ON MHT 5.9 - 72.8 mIU/mL NOT ON MHT 12.7 - 132.2 mlU/mL MALE 0.7 - 10.8 mIU/mL Insulin Level 232.8 mU/L 2.6-37.6 [facility] Miscellaneous Test See comment [facility] Comment on above: TEST RESULTS LIMITSI nhibin B, <7.0 pg/mL Early Follicular <261.0 Late Follicular <286.0 Periovulatory <189.0 MidLuteal <164.0 End Luteal <107.0 Post Menopausal < 17.0Inhibin B performed by Tiffanie(TM) Enzyme Linked Immunoassaymethodology. Values obtained with different assay methods or kits cannot be used interchangeably. TESTING PERFORMED AT [facility]. ORIGINAL REPORT ON FILE IN LAB CONTAINS ADDITIONAL TEST SITE INFORMATION. Vitamin D 25-Hydroxy 13.4 ng/mL [facility] Comment on above: Vitamin D 25(OH) Sta tus Range Deficiency <20 ng/mL (50nmol/L) Insufficiency 20 - 30 ng/mL (50 - 75 nmol/L) Sufficiency 30 - 100 ng/mL (75 - 250 nmol/L) Toxicity >100 ng/mL (>250 nmol/L) RBC Auto (Bld) [#/Vol]Ordere d By: Itzel Berg on 12-12-2023 RBC (Bld) [#/Vol] 4.73 10*6/uL 4.2-5.4 [facility] Serum or plasma flecainide m easurement (mass/volume)Ordered By: Itzel Berg on 12-12-2023 Flecainide [Mass/Vol] < 0.015 ng/mL . [facility] Comment on above: For assays employing antibodies, the possibility exists forinterference by heterophile antibodies in the samples.11.Lambert Mccord. Interferences in Immunoassays - still a threat. Clin. Chem. 2000; 46: 2433-7208.This test was developed and its performance characteristicsdetermined by [facility]. It has not been cleared or approvedby the Food and Drug Administration.Reference Range:Females 47 - 54y: <= 0.82Median <0.03AMH concentrations of >= 1.06 ng/mL is correlated with abetter response to ovarian stimulation, produced moreretrievable oocytes and higher odds of live accordingto Jose Eduardo et al. Fertility and Sterility. 2010:94:4721-0815. The current AMH test method correlates withthe [...] or exclude an AMH-secreting ovarian tumor.Performed at: [facility] [address] [id number] Director: Papa Chapman MD, Phone: [phone] Serum or plasma thyroid stim ulating hormone (TSH) measurement (units/volume)Ordered By: Itzel Berg on 12-12-2023 TSH Qn 0.87 uIU/mL 0.358-3.74 [facility] Whole blood hemoglobin A1c/t otal hemoglobin ratio (mass fraction)Ordered By: Itzel Berg on 12-12-2023 HbA1c (Bld) [Mass fraction] 5.5 % 3.8-5.6 [facility] Comment on above: Normal < 5.7 % Predi abetic 5.7 - 6.4 % Diabetic >or= 6.5 % Please note range changes. HPVon 12-09-2023 HPV Interp Normal See Interp HPVN [facility] ([place]) Comment on above: Order Comment: Order placed by AP_HPV_ORDER rule from [id number] Result Comment: High Risk HPV Typing: NEGATIVE [...] HPVN Performed By: #### H PV #### [facility] [address] [place] [address] HPV Source Cervix Normal [facility] ([place]) Comment on above: Order Comment: Order placed by AP_HPV_ORDER rule from [id number] Performed By: #### H PV #### [facility] [address] [place] [address] Absolute lymphocyte countOrd ered By: Dr. Patrick on 02-12-2023 Lymphocytes Auto (Unsp spec) [#/Vol] 2.08 10*3/uL 0.83-4.51 [facility] Basophil percentageOrdered B y: Dr. Patrick on 02-12-2023 Basophils/100 WBC (Bld) 0.7 % 0-1 [facility] Bilirubin [Mass/Vol] 0.30 mg/dL 0.20-1.00 [facility] Comment on above: For patients on eltr ombopag therapy, use of Dimension [place]ima TBIL is not recommended. Chloride [Moles/Vol] 105 mmol/L 98-107 [facility] Eosinophils/100 WBC (Bld) 0.8 % 0-5 [facility] Glucose [Mass/Vol] 118 mg/dL 74-106 [facility] Comment on above: Fasting Glucose resu lt from 100 to 125 mg/dL suggests IMPAIRED HOMEOSTASIS per A.D.A. criteria. Neutrophils (Bld) [#/Vol] 4.8 10*3/uL 2.0-7.7 [facility] Neutrophils/100 WBC (Bld) 63.3 % 47-70 [facility] Potassium [Moles/Vol] 3.7 mmol/L 3.5-5.1 [facility] Protein [Mass/Vol] 8.2 g/dL 6.4-8.2 [facility] Sodium [Moles/Vol] 140 mmol/L 136-145 [facility] WBC (Bld) [#/Vol] 7.6 10*3/uL 4.4-11.0 [facility] Blood erythrocytes count (nu mber/volume)Ordered By: Dr. Patrick on 02-12-2023 RBC (Bld) [#/Vol] 4.94 10*6/uL 4.2-5.4 [facility] Blood hemoglobin measurement (mass/volume)Ordered By: Dr. Patrick on 02-12-2023 Hemoglobin (Bld) [Mass/Vol] 14.4 g/dL 12.0-15.0 [facility] Blood lymphocytes/100 leukoc ytesOrdered By: Dr. Patrick on 02-12-2023 Lymphocytes/100 WBC (Bld) 27.5 % 19-41 [facility] Blood monocytes/100 leukocyt esOrdered By: Dr. Patrick on 02-12-2023 Monocytes/100 WBC (Bld) 7.3 % 0-10 [facility] Blood platelet mean volumeOr dered By: Dr. Patrick on 02-12-2023 Platelet mean volume (Bld) [Entitic vol] 9.8 fL 6.2-12.0 [facility] Determination of erythrocyte mean corpuscular volume (MCV)Ordered By: Dr. Patrick on 02-12-2023 MCV (RBC) [Entitic vol] 91.7 fL 81-99 [facility] Hematocrit Auto (Bld) [Volum e fraction]Ordered By: Dr. Patrick on 02-12-2023 Hematocrit (Bld) [Volume fraction] 45.3 % 37-47 [facility] Laboratory - Chemistry and C hemistry - challengeOrdered By: Dr. Patrick on 02-12-2023 ALP [Catalytic activity/Vol] 84 U/L 45-117 [facility] ALT [Catalytic activity/Vol] 62 U/L 13-56 [facility] CO2 [Moles/Vol] 27.0 mmol/L 21.0-32.0 [facility] Globulin (S) [Mass/Vol] 4.0 g/dL 2.2-4.2 [facility] Urea nitrogen/Creatinine [Mass ratio] 11.1 mg/mg 10-20 [facility] Laboratory - Hematology and Cell countsOrdered By: Dr. Patrick on 02-12-2023 Erythrocyte distribution width (RBC) [Entitic vol] 44.5 fL 35.1-43.9 [facility] Erythrocyte distribution width (RBC) [Ratio] 13.1 % 11.6-14.6 [facility] Immature granulocytes/100 WBC (Bld) 0.400 % 0.0-0.9 [facility] Comment on above: IG% - Immature Granu locytes (promyelocytes, myelocytes and metamyelocytes) > 1% indicates that a LEFT SHIFT is Present. MCH (RBC) [Entitic mass] 29.1 pg 27.0-32.0 [facility] Nucleated RBC/100 WBC (Bld) [Ratio] 0 % 0-5 [facility] MCHC Auto (RBC) [Mass/Vol]Or dered By: Dr. Patrick on 02-12-2023 MCHC (RBC) [Mass/Vol] 31.8 g/dL 32-36 [facility] No Panel InformationOrdered By: Dr. Patrick on 02-12-2023 Estimated GFR (MDRD) Amer 86 mL/min >60 [facility] Comment on above: GFR Calc Estimated GFR (MDRD) Non-Af Amer 71 mL/min >60 [facility] Comment on above: Non- GFR Calc Platelets bldOrdered By: Dr. Patrick on 02-12-2023 Platelets (Bld) [#/Vol] 313 10*3/uL 150-450 [facility] Serum or plasma albumin shelli urement (mass/volume)Ordered By: Dr. Patrick on 02-12-2023 Albumin [Mass/Vol] 4.2 g/dL 3.2-5.0 [facility] Serum or plasma albumin/glob ulin mass ratioOrdered By: Dr. Patrick on 02-12-2023 Albumin/Globulin [Mass ratio] 1.0 {ratio} 0.9-2.4 [facility] System Serum or plasma calcium shelli urement (mass/volume)Ordered By: Dr. Patrick on 02-12-2023 Calcium [Mass/Vol] 9.9 mg/dL 8.5-10.1 [facility] Serum or plasma creatinine m easurement (mass/volume)Ordered By: Dr. Patrick on 02-12-2023 Creatinine [Mass/Vol] 0.90 mg/dL 0.55-1.02 [facility] Comment on above: The validity of the calculated GFR & GFRAA in patients over 70 years has not been determined. Clinical correlation is essential. Serum or plasma urea nitroge n measurement (mass/volume)Ordered By: Dr. Patrick on 02-12-2023 Urea nitrogen [Mass/Vol] 10 mg/dL 7-18 [facility] Thin prep Papanicolaou smear with manual screeningOrdered By: Dr. Patrick on 02-12-2023 Thin prep Papanicolaou smear with manual screening 31 U/L 15-37 [facility] Thin prep Papanicolaou smear with manual screening 8 5-15 [facility] Absolute lymphocyte counton 02-01-2022 Lymphocytes Auto (Unsp spec) [#/Vol] 1.50 10*3/uL 0.83-4.51 [facility] Work Phone: Basophil percentageon 2021 Basophils/100 WBC (Bld) 0.5 % 0-1 [facility] Work Phone: Bilirubin [Mass/Vol] 0.30 mg/dL 0.20-1.00 [facility] Work Phone: Comment on above: For patients on eltr ombopag therapy, use of Dimension L[place] TBIL is not recommended. Chloride [Moles/Vol] 108 mmol/L 98-107 [facility] Work Phone: Cholesterol [Mass/Vol] 225 mg/dL <200 [facility] Work Phone: [phone] Comment on above: <200 mg/dL Desirable 200-240 mg/dL Borderline >240 mg/dL High Risk Eosinophils/100 WBC (Bld) 1.3 % 0-5 [facility] Work Phone: Glucose [Mass/Vol] 96 mg/dL 74-106 [facility] Work Phone: Neutrophils (Bld) [#/Vol] 6.0 10*3/uL 2.0-7.7 [facility] Work Phone: Neutrophils/100 WBC (Bld) 71.8 % 47-70 [facility] Work Phone: Potassium [Moles/Vol] 3.8 mmol/L 3.5-5.1 [facility] Work Phone: [phone] Protein [Mass/Vol] 7.4 g/dL 6.4-8.2 [facility] Work Phone: Sodium [Moles/Vol] 141 mmol/L 136-145 [facility] Work Phone: Triglyceride [Mass/Vol] 167 mg/dL [facility] Work Phone: Comment on above: The drugs N-Acetylcy steine and Metamizole may falsely depress this assay.Serum Triglycerides Reference Interval Normal <150 mg/dL Borderline high 150 - 199 mg/dL High 200 - 499 mg/dL Very High > or = 500 mg/dL WBC (Bld) [#/Vol] 8.3 10*3/uL 4.4-11.0 [facility] Work Phone: Blood erythrocytes count (nu mber/volume)on 02-01-2022 RBC (Bld) [#/Vol] 4.45 10*6/uL 4.2-5.4 [facility] Work Phone: Blood hemoglobin measurement (mass/volume)on 02-01-2022 Hemoglobin (Bld) [Mass/Vol] 13.3 g/dL 12.0-15.0 [facility] Work Phone: Blood lymphocytes/100 leukoc yteson 02-01-2022 Lymphocytes/100 WBC (Bld) 18.0 % 19-41 [facility] Work Phone: Blood monocytes/100 leukocyt eson 02-01-2022 Monocytes/100 WBC (Bld) 7.9 % 0-10 [facility] Work Phone: Blood platelet mean volumeon 02-01-2022 Platelet mean volume (Bld) [Entitic vol] 10.2 fL 6.2-12.0 [facility] Work Phone: Determination of erythrocyte mean corpuscular volume (MCV)on 02-01-2022 MCV (RBC) [Entitic vol] 93.9 fL 81-99 [facility] Work Phone: Hematocrit Auto (Bld) [Volum e fraction]on 02-01-2022 Hematocrit (Bld) [Volume fraction] 41.8 % 37-47 [facility] Work Phone: Laboratory - Chemistry and C hemistry - challengeon 02-01-2022 ALP [Catalytic activity/Vol] 66 U/L 45-117 [facility] Work Phone: ALT [Catalytic activity/Vol] 60 U/L 13-56 [facility] Work Phone: CO2 [Moles/Vol] 29.0 mmol/L 21.0-32.0 [facility] Work Phone: Globulin (S) [Mass/Vol] 3.4 g/dL 2.2-4.2 [facility] Work Phone: Urea nitrogen/Creatinine [Mass ratio] 13.0 mg/mg 10-20 [facility] Work Phone: Laboratory - Hematology and Cell countson 02-01-2022 Erythrocyte distribution width (RBC) [Entitic vol] 45.1 fL 35.1-43.9 [facility] Work Phone: Erythrocyte distribution width (RBC) [Ratio] 13.2 % 11.6-14.6 [facility] Work Phone: Immature granulocytes/100 WBC (Bld) 0.500 % 0.0-0.9 [facility] Work Phone: Comment on above: IG% - Immature Granu locytes (promyelocytes, myelocytes and metamyelocytes) > 1% indicates that a LEFT SHIFT is Present. MCH (RBC) [Entitic mass] 29.9 pg 27.0-32.0 [facility] Work Phone: Nucleated RBC/100 WBC (Bld) [Ratio] 0 % 0-5 [facility] Work Phone: MCHC Auto (RBC) [Mass/Vol]on 02-01-2022 MCHC (RBC) [Mass/Vol] 31.8 g/dL 32-36 [facility] Work Phone: No Panel Informationon 02-01 Estimated GFR (MDRD) Amer 84 mL/min >60 [facility] Work Phone: Comment on above: GFR Calc Estimated GFR (MDRD) Non-Af Amer 70 mL/min >60 [facility] Work Phone: Comment on above: Non- GFR Calc Thyroid Stimulating Hormone (TSH) 1.05 uIU/mL 0.358-3.74 [facility] Work Phone: Platelets bldon 02-01-2022 Platelets (Bld) [#/Vol] 275 10*3/uL 150-450 [facility] Work Phone: Serum or plasma albumin shelli urement (mass/volume)on 02-01-2022 Albumin [Mass/Vol] 4.0 g/dL 3.2-5.0 [facility] Work Phone: Serum or plasma albumin/glob ulin mass ratioon 02-01-2022 Albumin/Globulin [Mass ratio] 1.2 {ratio} 0.9-2.4 [facility] Work Phone: Serum or plasma calcium shelli urement (mass/volume)on 02-01-2022 Calcium [Mass/Vol] 9.3 mg/dL 8.5-10.1 [facility] Work Phone: Serum or plasma cholesterol in HDL measurement (mass/volume)on 02-01-2022 Cholesterol in HDL [Mass/Vol] 54 mg/dL [facility] Work Phone: Comment on above: The drugs N-Acetylcy steine and Metamizole may falsely depress this assay. Reference Range HDL <40 mg/dL Low HDL Cholesterol HDL >or= 60 mg/dL High HDL Cholesterol Serum or plasma cholesterol in VLDL measurement (mass/volume)on 02-01-2022 Cholesterol in VLDL [Mass/Vol] 33 mg/dL 5-40 [facility] Work Phone: Serum or plasma creatinine m easurement (mass/volume)on 02-01-2022 Creatinine [Mass/Vol] 0.93 mg/dL 0.55-1.02 [facility] Work Phone: Comment on above: The validity of the calculated GFR & GFRAA in patients over 70 years has not been determined. Clinical correlation is essential. Serum or plasma low density lipoprotein (LDL) cholesterol measurement (mass/volume)on 02-01-2022 Cholesterol in LDL [Mass/Vol] 138 mg/dL 0-130 [facility] Work Phone: Serum or plasma urea nitroge n measurement (mass/volume)on 02-01-2022 Urea nitrogen [Mass/Vol] 12 mg/dL 7-18 [facility] Work Phone: Thin prep Papanicolaou smear with manual screeningon 02-01-2022 Thin prep Papanicolaou smear with manual screening 29 U/L 15-37 [facility] Work Phone: Thin prep Papanicolaou smear with manual screening 4 5-15 [facility] Work Phone: XR Chest PA and Lateralon IMPRESSION: Refer to the result. Multimedia Editor: ЕКАТЕРИНА Transcribe Date/Time: Jun 14 2021 2:25P Dictated by : TRUPTI GOMEZ MD This examination was interpreted and the report reviewed and electronically signed by: TRUPTI GOMEZ MD on Jun 14 2021 2:30PM [facility] DIVISION OF RADIOLOGY * * *Final [...] abnormality is identified. DIVISION OF RADIOLOGY Provider, Elsi Hunt [facility] - 06/14/2021 * * *Final Report* * [...] identified. IMPRESSION IMPRESSION: Refer to the result. Multimedia Editor: ЕКАТЕРИНА Transcribe Date/Time: Jun 14 2021 2:25P Dictated by : TRUPTI GOMEZ MD This examination was interpreted and the report reviewed and electronically signed by: TRUPTI GOMEZ MD on Jun 14 2021 2:30PM EST [facility] Radiology Study observation (narrative) [facility] XR Chest PA and LateralOrder ed By: [facility] Provider on 06-14-2021 [facility] XR Chest PA and Lateralon IMPRESSION: Subtle patchy opacities throughout the RIGHT lung may reflect an infectious process. Multimedia Editor: ЕКАТЕРИНА Transcribe Date/Time: May 16 2021 11:02A Dictated by : TRUPTI GOMEZ MD This examination was interpreted and the report reviewed and electronically signed by: TRUPTI GOMEZ MD on May 16 2021 11:04AM [facility] DIVISION OF RADIOLOGY * * *Final [...] acute osseous abnormality. DIVISION OF RADIOLOGY Provider, [facility] - 05/16/2021 * * *Final Report* [...] RIGHT lung may reflect an infectious process. Multimedia Editor: PSCB Transcribe Date/Time: May 16 2021 11:02A Dictated by : TRUPTI GOMEZ MD This examination was interpreted and the report reviewed and electronically signed by: TRUPTI GOMEZ MD on May 16 2021 11:04AM EST [facility] Radiology Study observation (narrative) [facility] XR Chest PA and LateralOrder ed By: [facility] Provider on 05-16-2021 [facility] Vital Signs Date Time Vital Sign Value Performing Clinician Liliana loomis 04-22-2025 10:00-0400 Body height 160.[address] Jr Oviedo MD Work Phone: [facility] 04-22-2025 10:00-0400 Body mass index (BMI) [Ratio] 33.8 kg/m2 Dr. Jr Oviedo MD Work Phone: [facility] 04-22-2025 10:00-0400 Body weight 86.[address] Jr Oviedo MD Work Phone: [facility] 04-22-2025 10:00-0400 Diastolic blood pressure 92 mm[Hg] Dr. Jr Oviedo MD Work Phone: [facility] 04-22-2025 10:00-0400 Systolic blood pressure 129 mm[Hg] Dr. Jr Oviedo MD Work Phone: [facility] 01-26-2025 07:50-0400 Body height 160.[address] Radha Patrick MD Work Phone: [facility] 01-26-2025 07:50-0400 Body mass index (BMI) [Ratio] 32.2 kg/m2 Dr. Radha Patrick MD Work Phone: [facility] 01-26-2025 07:50-0400 Body temperature 98 [degF] Dr. Radha Patrick MD Work Phone: [facility] 01-26-2025 07:50-0400 Body weight 82.[address] Radha Patrick MD Work Phone: [facility] 01-26-2025 07:50-0400 Diastolic blood pressure 80 mm[Hg] Dr. Radha Patrick MD Work Phone: [facility] 01-26-2025 07:50-0400 Heart rate 103 /min Dr. Radha Patrick MD Work Phone: [facility] 01-26-2025 07:50-0400 SaO2% (BldA) [Mass fraction] 97 % Dr. Radha Patrick MD Work Phone: [facility] 01-26-2025 07:50-0400 Systolic blood pressure 122 mm[Hg] Dr. Radha Patrick MD Work Phone: [facility] 01-06-2025 13:02-0400 Body height 160.[address] Radha Patrick MD Work Phone: [facility] 01-06-2025 13:02-0400 Body mass index (BMI) [Ratio] 32.2 kg/m2 Dr. Radha Patrick MD Work Phone: [facility] 01-06-2025 13:02-0400 Body weight 82.[address] Radha Patrick MD Work Phone: [facility] 01-06-2025 13:02-0400 Diastolic blood pressure 87 mm[Hg] Dr. Radha Patrick MD Work Phone: [facility] 01-06-2025 13:02-0400 Systolic blood pressure 123 mm[Hg] Dr. Radha Patrick MD Work Phone: [facility] 01-01-2025 10:45-0400 Body mass index (BMI) [Ratio] 32.1 kg/m2 Dr. Radha Patrick MD Work Phone: [facility] 01-01-2025 10:45-0400 Body weight 82.[address] Radha Patrick MD Work Phone: [facility] 01-01-2025 10:45-0400 Diastolic blood pressure 85 mm[Hg] Dr. Radha Patrick MD Work Phone: [facility] 01-01-2025 10:45-0400 Heart rate 105 /min Dr. Radha Patrick MD Work Phone: [facility] 01-01-2025 10:45-0400 Respiratory rate 18 /min Dr. Radha Patrick MD Work Phone: [facility] 01-01-2025 10:45-0400 SaO2% (BldA) [Mass fraction] 96 % Dr. Radha Patrick MD Work Phone: [facility] 01-01-2025 10:45-0306 Systolic blood pressure 122 mm[Hg] Dr. Radha Patrick MD Work Phone: [facility] Encounters Encounter Date Encounter Type Care Provider Facility Start: 05-13-2025 ambulatory [facility] Facility: [facility] Start: 04-22-2025 End: 04-22-2025 ambulatory Yamilex Welsh Facility:[facility] Start: 04-22-2025 End: 04-22-2025 Patient encounter procedure Yamilex Anitha [employer]-C -[facility] Work Phone: Start: 04-22-2025 End: 04-22-2025 Patient encounter status Yamilex Anitha [employer]-C [facility] Start: 04-14-2025 End: 04-14-[address] Jr Oviedo MD Work Phone: -[facility] [place] Start: 04-14-2025 End: 04-14-2025 Patient encounter procedure Yamilex Wayizaiah [employer]ODUCER-C -[facility] [place] Work Phone: Start: 04-14-2025 End: 04-14-2025 ambulatory [facility] Facility:[facility] Start: 02-19-2025 Encounter for genera l adult medical examination without abnormal findings Radha Patrick [facility] Start: 02-12-2025 End: 02-12-[address] Jr Oviedo MD Work Phone: -[facility] [place] Start: 02-12-2025 End: 02-12-[address] Radha Patrick MD -[facility] [place] Work Phone: Start: 02-12-2025 End: 02-12-2025 ambulatory [facility] Facility:[facility] Start: 01-26-2025 End: 01-26-2025 Patient encounter procedure Cole Rod[place] [facility] Work Phone: Start: 01-26-2025 End: 01-26-[address] Radha Patrick MD Work Phone: [facility] Work Phone: Start: 01-26-2025 End: 01-26-2025 ambulatory Cole FINLEY Facility:[facility] Start: 01-06-2025 End: 01-06-2025 Patient encounter procedure Yamilex PATEL -[facility] Work Phone: Start: 01-06-2025 End: 01-06-[address] Radha Patrick MD Work Phone: [facility] Work Phone: Start: 01-01-2025 End: 01-01-[address] Jr Oviedo MD -[facility] Work Phone: Start: 01-01-2025 End: 01-01-2025 ambulatory Jr Oviedo Facility:[facility] Start: 09-22-2024 End: 09-22-[address] Radha Patrick MD -Ultrasound [facility] Work Phone: Start: 09-22-2024 End: 09-22-2024 ambulatory Radha Patrick Facility:[facility] Start: 05-18-2024 Encounter for other preprocedural examination Radha Patrick [facility] Start: 05-18-2024 ambulatory Radha Darnell Facility: [facility] Start: 12-12-2023 End: 12-12-2023 ambulatory [facility] Work Phone: Start: 12-12-2023 End: 12-12-2023 Patient encounter procedure [facility] Work Phone: Start: 12-04-2023 End: 12-09-2023 ambulatory ITZEL FERRERA Facility:[facility] Start: 12-04-2023 End: 12-09-2023 Encounter for gynecological examination (general) (routine) without abnormal findings ITZEL FERRERA Facility:[facility] Start: 12-04-2023 End: 12-08-2023 Outreach Lab ITZEL BERG RN PICU-CNM [facility] Start: 07-03-2023 ambulatory Georgiara Rachelle Henson Jocelyne Work Phone: [facility] Start: 04-16-2023 End: 04-16-2023 ambulatory [facility] Work Phone: Start: 04-16-2023 End: 04-16-2023 Patient encounter procedure [facility] Work Phone: Start: 02-12-2023 End: 02-12-2023 ambulatory [facility] Work Phone: Start: 02-12-2023 End: 02-12-2023 Patient encounter procedure [facility]-Laboratory Start: 07-04-2022 ambulatory Georgia Rachelle Casanova Work Phone: [facility] Start: 02-01-2022 End: 02-01-2022 Patient encounter procedure [facility]-Laboratory, [place] Start: 06-14-2021 End: 06-14-2021 Subsequent hospital visit by physician Xr [facility] Work Phone: Radiology Comment on above: Pneumonia due to COV ID-19 virus [U07.1, J12.82] Start: 05-16-2021 End: 05-16-2021 Subsequent hospital visit by physician X[facility] Work Phone: Radiology Comment on above: Cough [R05] Procedures Date Procedure Procedure Detail Performing Clinician Start: 04-14-2025 Follicle stimulating hormone measurement Dr. Jr Oviedo MD Work Phone: Comment on above: FEMALE:Follicular: 1 .4 - 18.1 mIU/mLMidcycle: 3.4 - 33.4 mIU/mLLuteal: 1.5 - 9.1 mIU/mLPost Menopause: 23.0 - 116.3 mIU/mLMALE: 1.4 - 18.1 mIU/mL Start: 02-12-2025 Plain x-ray of pelvi s [...] exam ches t 2 views Emilia Briceño RN PICU.[employer] Work Phone: Start: 05-16-2021 Radiologic exam ches t 2 views Dalila Carson PA-C Work Phone: Start: 06-02-2020 Mammography Georgia freitas MD Work Phone: Start: 11-02-2014 Lipid 1996 panel - Serum or Plasma Georgia Dillon MD Work Phone: Start: 04-26-2007 H/O: tubal ligation History of tubal ligation section ITZEL GAMBLE RN PICU-CNM Destructive procedure MILANA BERG RN PICU-CNM H/O: section History of C-sectio n H/O: surgery History of nasal surgery History of tonsillectomy History of tonsillectomy Ligation of fallopia n tube ITZEL BERG RN PICU-CNM Rhinp dfrm w/colum lngth tip only ITZEL BERG RN PICU-CNM Tonsillectomy ITZEL LAMB R RN PICU-CNM Plan of Treatment Date Care Activity Detail Author Start: 10-10-2028 Urine microalbumin profile [facility] Start: 01-06-2025 Estradiol (E2) [Mass/volume] in Serum or Plasma [facility] Start: 01-06-2025 Follicle stimulating hormone measurement [facility] Start: 04-26-2024 Covid-19 Vaccine ( season) Covid-19 Vaccine () [facility] Start: 04-26-2024 Influenza vaccination Influenza Vacc ine (#1) [facility] Start: 04-26-2023 Influenza vaccination Influenza Vacc ine (#1) [facility] Start: 08-26-2022 Depression Assessment Depression Ass essment [facility] Start: 04-26-2022 Influenza vaccination INFLUENZA (#1) [facility] Start: 2021 COLOGUARD (FIT-DNA) COLOGUARD (FIT-D NA) [facility] Start: 2021 Colonoscopy COLONOSCOPY [facility] Start: 2021 COLORECTAL CANCER SCREENING COLORECTAL CANCER SCREENING [facility] Start: [address] COLONOGRAPHY [facility] Start: 2021 DIABETES SCREEN DIABETES SCREEN [facility] Start: 2021 Diabetes Screening Diabetes Screenin g [facility] Start: 2021 FECAL OCCULT BLOOD FECAL OCCULT BLOO D [facility] Start: 2021 Lipid 1996 panel - S deya or Plasma Lipid Screening [facility] Start: 2021 Lipid panel Lipid Screening [facility] Start: 2021 LIPID SCREEN LIPID SCREEN [facility] Start: 2021 Screening for malign ant neoplasm of colon [facility] Start: 2021 SIGMOIDOSCOPY SIGMOIDOSCOPY [facility] Start: 10-08-2021 HPV TESTING HPV TESTING [facility] Start: 10-08-2021 PAP TESTING PAP TESTING [facility] Start: 10-08-2021 Screening for malign ant neoplasm of cervix Cervical Cancer Screening [facility] Start: 08-26-2021 DEPRESSION ASSESSMENT DEPRESSION ASS ESSMENT [facility] Start: 06-02-2021 Mammography [facility] Start: 06-02-2021 Screening for malign ant neoplasm of breast Mammogram Screening [facility] Start: 11-22-1995 Hepatitis B Vaccine (1 of 3 - 19+ 3-dose series) Hepatitis B Vaccine (1 of 3 - 19+ 3-dose series) [facility] Start: 1994 Anxiety Screening Anxiety Screening [facility] Start: 1994 Depression Screening Depression Scre ening [facility] Start: 1994 HEPATITIS C SCREENING HEPATITIS C [facility] Start: 1994 Hepatitis C screening Hepatitis C [facility] Start: 1994 HIV SCREENING HIV SCREENING [facility] Start: 1994 HIV screening HIV Screening [facility] Start: 05-24-1977 COVID-19 VACCINE (#1) COVID-19 VACCI NE (#1) [facility] Start: 1976 HEPATITIS B (1 of 3 - 3-dose series) HEPATITIS B (1 of 3 - 3-dose series) [facility] Start: 1976 Hepatitis B Vaccine (1 of 3 - 3-dose series) Hepatitis B Vaccine (1 of 3 - 3-dose series) [facility] End: 08-01-2024 WILI SCREENING WILI SCREENING Radiology Routine Encounter for screening mammogram for breast cancer 1 Occurrences starting 07/03/2023 until 08/01/2024 [facility] Work Phone: Comment on above: 1 Occurrences starti ng 07/03/2023 until 08/01/2024 End: 08-03-2023 Screening mammography bi 2-view breast inc cad WILI SCREENING Radiology Routine Encounter for screening mammogram for breast cancer 1 Occurrences starting 07/04/2022 until 08/03/2023 [facility] Work Phone: Comment on above: 1 Occurrences starti ng 07/04/2022 until 08/03/2023 [facility] Immunizations Immunization Date Immunization Notes Care Provider Lanre buenrostro 06-14-2021 influenza, injectabl e, quadrivalent, contains preservative Georgia Dillon MD Work Phone: [facility] 06-14-2021 influenza virus vaccine, unspecified formulation Georgia Dillon MD Work Phone: [facility] 07-02-2020 influenza, injectabl e, quadrivalent, contains preservative Georgia Dillon MD Work Phone: [facility] Work Phone: 07-31-2019 influenza, injectabl e, quadrivalent, contains preservative Georgia Dillon MD Work Phone: [facility] Work Phone: 06-04-2017 influenza, injectabl e, quadrivalent, contains preservative Georgia Dillon MD Work Phone: [facility] Work Phone: 06-07-2016 influenza, injectabl e, quadrivalent, contains preservative Georgia Dillon MD Work Phone: [facility] Work Phone: 06-09-2015 influenza, injectabl e, quadrivalent, contains preservative Georgia Dillon MD Work Phone: [facility] Work Phone: 06-09-2014 influenza, seasonal, injectable Georgia Dillon MD Work Phone: [facility] Work Phone: 06-30-2013 influenza virus vaccine, unspecified formulation Georgia Dillon MD Work Phone: [facility] Work Phone: 05-26-2011 influenza virus vaccine, unspecified formulation Georgia Dillon MD Work Phone: [facility] Work Phone: 06-18-2006 influenza virus vaccine, unspecified formulation Georgia Dillon MD Work Phone: [facility] Work Phone: 11-02-2005 tetanus toxoid, redu agusto diphtheria toxoid, and acellular pertussis vaccine, adsorbed Georgia Dillon MD Work Phone: [facility] Work Phone: Payers Date Payer Category Payer Unknown [id number] 2024 Self-pay [id number] 2021 Unknown MMO MMO [employer] [id number] 2021-Present [phone] [address] [place] [address] Indemnity [id number] 2019 Private Health Insurance [employer] A ETNA POS [id number] 2019-2021 [id number] [place] [address] POS [id number]. [id number] 2012 Unknown [id number] 2006 Unknown [id number] 1975 Unknown [id number] 2.16.840.1.503944.3.579.2. 627 Unknown [id number] 2.16.840.1.938474.3.579.2. 462 Unknown [id number] 2.16.840.1.656812.3.579.2. 462 Unknown [id number] 2.16.840.1.033820.3.579.2. 462 Unknown [id number] 2.16.840.1.563311.3.579.2. 462 Unknown [id number] 2.16.840.1.057727.3.579.2. 462 Unknown [id number] 2.16.840.1.283684.3.579.2. 462 Unknown [id number] 2.16.840.1.541858.3.579.2. 462 Unknown [id number] 2.16.840.1.620480.3.579.2. 462 Unknown [id number] 2.16.840.1.616201.3.579.2. 462 Unknown [id number] 2.16.840.1.365230.3.579.2. 462 Unknown [id number] 2.16.840.1.766752.3.579.2. 462 Unknown [id number] 2.16.840.1.634251.3.579.2. 462 Social History Date Type Detail Facility Start: 05-22-2018 Tobacco smoking stat [facility] Unknown if ever smoked [facility] Start: 1975 Sex Assigned At Female [facility] Start: 05-17-2014 End: 12-09-2024 Tobacco smoking status NHIS Ex-smoker [facility] Work Phone: Start: 12-13-2005 End: 12-13-2013 History of tobacco use Current smoker [facility] Work Phone: Start: 12-13-2005 End: 12-13-2013 History of tobacco use Cigarette Smoker [facility] Work Phone: Start: 05-17-2014 End: 08-03-2020 Cigarettes smoked current (pack per day) - Reported 1 [facility] Start: 05-17-2014 Tobacco use and exposure Smoke less tobacco non-user [facility] Work Phone: Start: 05-16-2021 Alcohol intake Current drinke r of alcohol (finding) [facility] Start: 08-30-2020 History SDOH Alcohol Frequency 2 [facility] Start: 08-30-2020 History SDOH Alcohol Binge 1 [facility] Start: 08-30-2020 History SDOH Social Connections Phone 5 [facility] Start: 08-30-2020 History SDOH Social Connections Get Together 98 [facility] Start: 08-30-2020 History SDOH Social Connections Living 3 [facility] Start: 08-30-2020 Education 15 [facility] Start: 11-11-2013 Tobacco Comment quit while [facility] Start: 07-03-2011 Alcohol Comment occasional 15-20/yea r [facility] Start: 08-03-2020 End: 08-30-2020 Social connection and isolation panel [facility] How often do you get together with friends or relatives? Patient refused [facility] Do you belong to any clubs or organizations such as oriental orthodox groups, unions, fraternal or athletic groups, or school groups? No [facility] Are you now , , , , never or living with a partner? [facility] How often to you hav e a drink containing alcohol? Monthly or less [facility] How many standard dr inks containing alcohol do you have on a typical day? 3 or 4 [facility] How often do you hav e 6 or more drinks on 1 occasion? Never [facility] Do you feel stress - tense, restless, nervous, or anxious, or unable to sleep at night because your mind is troubled all the time - these days [OSQ] Only a little [facility] (I/We) worried wheth er (my/our) food would run out before (I/we) got money to buy more. Never true [facility] Start: 06-08-2021 Gender identity Identifies as female gender (finding) [facility] Start: 12-04-2023 Tobacco smoking status Never s moked tobacco (finding) [facility] Start: 04-16-2021 End: 05-16-2021 Exposure to SARS-CoV-2 (event) Not sure [facility] Clinical Notes 05-16-2021 to 02-12-2025 Note Date & Type Note Facility 02-12-2025 Radiology Diagnostic study note [facility] Imaging Services [address] [place], [place] [id number] HIP, UNI W/ Pelvis 2-3 Views MR#: [id number] Acct: [id number] Name: BELENGUERLINELASHAY ZHANG Rep #: [id number] : 1975 F 49 From: Jeanne Tejada MD PCP: Dr. Radha Patrick MD Status: REG CLI Study:HIP, UNI W/ Pelvis 2-3 Views Date of Ex am: 02/12/25 Exam# [id number] Ordering Dr: Donna Patrick MD EXAM: XR [...] Views IMPRESSION: No acute fracture. Reading Location: [facility] CC: Dr. Radha Patrick MD ~ Multimedia Editor: Signed [facility] 01-26-2025 Progress note [facility] 01-26-2025 Progress note Note Date/Time January 26, 2025 7:51am [facility] [address], [address] [place] [id number] OFFICE VISIT Date of Service: 01/26/25 MR#: [id number] Acct: [id number] Name: GUERLINE CHAMBERLAIN Rep #: [id number] : 1975 Provider: MALIA Kelly Age/Sex: 49/F Location: [facility] Status: Signed Intake Vital Signs 01/06/25 13:02 [...] mcg tablet 0.4 mg PO QDAY 12/09/24 06/0 11/17 History magnesium oxide 500 mg capsule 500 [...] in color/ character of urine orstool. No [id number] products taken to assist. No other associated [...] Cosigner Signature: Date (if applicable) CC: ~ [facility] Work Phone: 1(382) 848-772805-09-2025 Evaluation note* Diagnosis Onset Date Resolution Status Admit Date Encounter for cosmetic surgery acute January 01, 2025 10:18am [facility] Work Phone: 1(383) 529-575205-09-2025 Evaluation note* Diagnosis Onset Date Resolution Status Admit Date Encounter for cosmetic surgery acute January 01, 2025 10:18am Hot flashes due to menopause acute January 06, 2025 12:59pm [facility] Work Phone: 1(975) 612-119705-09-2025 Evaluation note* Diagnosis Onset Date Resolution Status Admit Date Encounter for cosmetic surgery acute January 01, 2025 10:18am Hot flashes due to menopause acute January 06, 2025 12:59pm Encounter for routine gynecological examination noneactive April 22, 2025 9:54am [facility] Work Phone: 1(493) 748-833211-08-2023 NotePatient Outreach (INTMMN) GUERLINE CHAMBERLAIN ([id number]) 1975 F Date Time Provider Department 07/03/23 [place] DILLON During your visit today, we recorded the following information about you: Allergies As of Date: 07/03/2023 (No Known Allergies) Date Reviewed: 06/14/2021 Reviewed by: Rachelle Cage Ma - Fully Assessed Visit Diagnosis:Encounter for screening mammogram for breast cancer [Z12.31] Order(s):[facility] SCREENING [[id number]] Order #: [id number] FUTURE Prescriptions as of 07/08/2023 - fluticasone [...] B12 deficiency [E53.8] 06/04/2017 Encounter Status:Closed by DILLON VALENCIAUSER on 07/08/23[facility] 06-14-2021 History of Present illness Narrative* [...] 14, 2021 2:15 PM [facility] History of Present illness Narrative* Penny Rene RT(R) - 05/16/2021 10:40 AM EDT Radiology Service Progress Note PATIENT NAME: uGerline Chamberlain DATE OF SERVICE: May 16, 2021 [...] 16, 2021 10:53 AM documented in this encounterUniversity [facility] Center[facility] + Plan note Future Appointments Appointment Date:01/01/2024 10:00:00 AM Scheduled Provider:ITZEL BERG Location: [facility] Appointment Type: OV Diagnostic Tests Pending * HPV Screen, DNA Probe 12/04/23 Future Scheduled Tests Laboratory* Inhibin B 12/05/23 * Estradiol Level 12/05/23 * Thyroid Stimulating Hormone 12/05/23 * Anti-Mullerian Hormone (AMH) 12/05/23 * A1C Hemoglobin 12/05/23 * Complete Blood Count 12/05/23 * Follicle Stimulating Hormone Level 12/05/23 * Glucose Level 12/05/23 * Insulin Level Total 12/05/23 * Vitamin D Level 12/05/23 [facility] Evaluation noteNo assessment information available [facility] Work Phone: Evaluation note* Diagnosis Encounter for screening mammogram for breast cancer [facility] encounter [facility] Diagnosis Encounter for screening mammogram for breast cancer [facility] in this encounter [facility] Diagnosis MIGRAINE MENSTRUAL- Primary Premenstrual tension [...] to COVID-19 virus [facility] MIGRAINE MENSTRUAL- Primary Premenstrual tension [...] unspecified type Cough documented in this encounter [facility] course Narrative No data available for this section [facility] Hospital Discharge instructions No data available for this section [facility] Progress note No data available for this section [facility] Reason for referral (narrative)* Diagnostic Procedure Only (Routine) - Pending Review Specialty Diagnoses / Procedures Referred By Dariusz wiseman Referred To Contact [facility] Diagnoses Encounter for screening mammogram for breast cancer Procedures WILI SCREENING SCREENING MAMMOGRAPHY BI 2-VIEW BREAST INC Georgia Sierra MD [address] [place] [address] [facility] [address] [place] [address] Referral ID Status Reason Start Date Expiration Date Visits Requested Visits Authorized [id number] Pending Review Auto-Generat ed Referral 07/04/2022 08/03/2023 1 1 [facility] for referral (narrative)* Diagnostic Procedure Only (Routine) - Pending Review Specialty Diagnoses / Procedures Referred By Dariusz wiseman Referred To Contact [facility] Diagnoses Encounter for screening mammogram for breast cancer Procedures WILI SCREENING SCREENING MAMMOGRAPHY BI 2-VIEW BREAST INC Georgia Sierra MD [facility] [place] [address] [facility] [address] [place] [address] Referral ID Status Reason Start Date Expiration Date Visits Requested Visits Authorized [id number] Pending Review Auto-Generat ed Referral 07/03/2023 08/01/2024 1 1 [facility] for referral (narrative)No reason for referral information [facility] Work Phone: Family History Relationship Condition Age at Onset Recorded Date/T [...] 10:18am Hot flashes due to menopause January 06 025 12:59pm Chief Complaint Admit Date COSMETIC CONSULT January 01, 2025 10:18a m HOROMONE THERAPY January 06, 2025 12:59 pm CONCERN FOR UTI January 26, 2025 7:35a m Chief Complaint Admit Date COSMETIC CONSULT January 01, 2025 10:18a m HOROMONE THERAPY January 06, 2025 12:59 pm CONCERN FOR UTI January 26, 2025 7:35a m ALSO HIP XRAY February 12, 2025 7:31 am Chief Complaint Admit Date COSMETIC CONSULT January 01, 2025 10:18a m HOROMONE THERAPY January 06, 2025 12:59 pm CONCERN FOR UTI January 26, 2025 7:35a m ALSO HIP XRAY February 12, 2025 7:31 am EORDER April 14, 2025 7: 03am Chief Complaint Admit Date COSMETIC CONSULT January 01, 2025 10:18a m HOROMONE THERAPY January 06, 2025 12:59 pm CONCERN FOR UTI January 26, 2025 7:35a m ALSO HIP XRAY February 12, 2025 7:31 am EORDER April 14, 2025 7: 03am Annual ([employer]) April 22, 2025 9: 54am Reason for Visit Admit Date Encounter for cosmetic surgery January 01, 2025 10:18am Hot flashes due to menopause January 06, 2 025 12:59pm Encounter for routine gynecological exam ination April 22, 2025 9:54am Summary Purpose Advance Directives No Advanced Directives [...] or prosecute any alcohol or drug abuse patient.[facility] CenterIn the event this information is protected by the Federal Confidentiality of Alcohol and Drug Abuse Patient Records regulations: The Federal rules restrict any use of the information to criminally investigate or prosecute any alcohol or drug abuse patient.[facility] CenterIn the event this information is protected by the Federal Confidentiality of Alcohol and Drug Abuse Patient Records regulations: The Federal rules restrict any use of the information to criminally investigate or prosecute any alcohol or drug abuse patient.[facility] CenterIn the event this information is protected by the Federal Confidentiality of Alcohol and Drug Abuse Patient Records regulations: The Federal rules restrict any use of the information to criminally investigate or prosecute any alcohol or drug abuse patient.[facility] Care Teams (unrecognized sec tion and content) [...] Status: Inactive Member Role Status Dates Cole FINLEY, PA Attending Provider Active Start: January 26, 2025 End: January 26, 2025 Field Consultant Relationship Specialty Start Date End Date Georgia Dillon MD [address] [place], [place] [address] PCP - General Internal Medicine 04/05/15 Team Status: Active Member Role Status Dates Dr. Morgan Thompson MD Family Provider Active Dr. Radha Patrick MD Primary Care Provider Active Team Status: Inactive Member Role Status Dates Dr. Radha Patrick MD Primary Care Prov ider, Attending Provider, Referring Provider Active Field Consultant Relationship Specialty Start Date End Date Georgia Dillon MD [address] [facility] [place] [address] PCP - General Internal Medicine 04/05/15 Team Status: Inactive Member Role Status Dates Dr. Radha Patrick MD Primary Care Provider Active Itzel Berg CNM Attending Provider, Referring Pr ovider Active Field Consultant Relationship Specialty Start Date End Date Georgia Dillon MD [address] [place] [address] PCP - General Internal Medicine 04/05/15 Team [...] Team Status: Active Member Role Status Dates MAANDA Lucero Attending Provider Active Start: January 06, [...] Team Status: Inactive Member Role/Relationship Status Dates Cole Rodarte PA, PA Attending Provider Active Start: January 26, 2025 End: January 26, 2025 Team Status: Inactive Member Role/Relationship Status Dates Cole FINLEY PA Attending Provider Active Start: January 26, [...] February 12, 2025 End: February 12, 2025 Team Status: Inactive Member Role/Relationship Status Dates Dr. Radha Patrick MD Primary Care Provider Active Start: April 14, 2025 End: April 14, 2025 AMANDA Lucero Attending Provider Active Start: April 14, 2025 End: April 14, 2025 AMANDA Lucero Referring Provider Active Start: April 14, 2025 End: April 14, 2025 Team Status: Inactive Member Role/Relationship Status Dates AMANDA Lucero Attending Provider Active Start: April 22, 2025 End: April 22, 2025 Dr. Radha Patrick MD Primary Care Provider Active Start: April 22, 2025 End: April 22, 2025 Dr. Radha Patrick MD Referring Provider Active Start: April 22, 2025 End: April 22, 2025 INFORMATION SOURCE (unrecogn ized section and content) DATE CREATED AUTHOR 07/08/2023 [facility] DATE CREATED AUTHOR AUTHOR'S ORGANIZ ATION 01/12/2024 On license of [facility] ([place]) DATE CREATED AUTHOR AUTHOR'S ORGANIZ ATION 04/22/2025 [facility] FOR RECORDS PERTAINING TO PATIENTS WHO ARE [...] BE BASED ON THE PRIMARY CLINICAL RECORDS. [employer] [facility]. provides no warranty or guarantee of the accuracy or completeness of information in this document.
== END | disposition home or self-care (01) ==
LOC: OPBI 11:50
PROVIDERS: PCP Family Medicine; Referring Provider Nurse Practitioner Family; Visit Provider Nurse Practitioner Family
DX: Z12.31 Encounter for screening mammogram for malignant neoplasm of breast (principal)
CPT/HCPCS: 77063; 77067

== ENCOUNTER 2025-05-05 09:58 | Outpatient (CLI) | payer OTHER, SELFPAY | END 2025-05-05 23:59 | disposition home or self-care (01) | LOC: MTLAB 10:02 | PROVIDERS: PCP Family Medicine | DX: Z00.00 Encounter for general adult medical examination without abnormal findings (principal) | CPT/HCPCS: 36415; 83036 ==

== ENCOUNTER → 2025-07-01 | Outpatient (CLI) | payer OTHER, SELFPAY ==
--- NOTE | 2025-07-01 13:00 | RAD_ITS ---
PROCEDURE: SHOULDER MIN 2 VIEWS 07/01/2025 REASON FOR EXAM: PAIN IN BOTH SHOULDERS TECHNIQUE: Procedure Code: RADSH Modality: DX Procedure: SHOULDER MIN 2 VIEWS Laterality: Bilateral COMPARISON: None. RAD/Shoulder min 2 Views IMPRESSION: No significant arthritic process or joint narrowing is noted. Satisfactory and symmetric osseous alignment is seen bilaterally. Mild degenerative changes and mild gentle dextroscoliosis of the thoracic spine also noted. No acute fracture or dislocation is seen. Reading Location: [place] [address]
--- NOTE | 2025-07-01 13:00 | RAD_ITS ---
PROCEDURE: SHOULDER MIN 2 VIEWS 07/01/2025 REASON FOR EXAM: PAIN IN BOTH SHOULDERS TECHNIQUE: Procedure Code: RADSH Modality: DX Procedure: SHOULDER MIN 2 VIEWS Laterality: Bilateral COMPARISON: None. RAD/Shoulder min 2 Views IMPRESSION: No significant arthritic process or joint narrowing is noted. Satisfactory and symmetric osseous alignment is seen bilaterally. Mild degenerative changes and mild gentle dextroscoliosis of the thoracic spine also noted. No acute fracture or dislocation is seen. Reading Location: [place] [address]
== END | disposition home or self-care (01) ==
LOC: MTRAD 12:45
PROVIDERS: PCP Family Medicine; Referring Provider Family Medicine; Visit Provider Family Medicine
DX: M25.511 Pain in right shoulder (principal); M25.512 Pain in left shoulder
CPT/HCPCS: 73030

== ENCOUNTER → 2025-08-04 | Outpatient (CLI) | payer OTHER, SELFPAY ==
--- OUTSIDE RECORDS SUMMARY | 2025-08-04 12:44 | XMS RPT_ITS | CCD ---
Author Organization [facility] Care Team Providers Care .Net Architect Name Role Phone Georgia Dillon MD Primary Care Provider RADHA PATRICK Primary Care Physician [phone] ITZEL CAPONE Attending Unav ailable RADHA PATRICK Primary Care Unavailable Georgia Dillon MD Primary Care Provider Dr. Radha Patrick MD Primary Care Provider Dr. Radha Patrick MD Attending Provider Dr. Radha Patrick MD Referring Provider Dr. Jr Oviedo MD Attending Provider Anitha TELLEZ-Yamilex Nunes Attending Provider Anitha HENSONCYamilex Referring Provider Dr. Radha Patrick MD Referring Provider Cole Mejia Attending Provider Dr. Jr Oviedo MD Referring Provider Dr. Radha Patrick MD Referring Provider Dr. Radha Patrick MD Primary Care Provider Dr. Radha Patrick MD Attending Provider Cole Mejia Attending Physician Dr. Radha Patrick MD Primary Care Physician Dr. Radha Patrick MD Attending Physician Dr. Radha Patrick MD Referring Provider [phone] Anitha DIABETES MANAGERDominickCYamilex Attending Physician [phone] Anitha DIABETES MANAGERDominickCYamilex Referring Provider [phone] SUSAN BURROUGHS Attending Physician SUSAN BURROUGHS Referring Provider Yamilex Welsh Attending Unavailable Yamilex Welsh Referring Unavailable Miedel, Radha Primary Care Unavailable TIFFANY C1 Attending Unavailable TIFFANY C1 Referring Unavailable Miedel, Radha Primary Care Unavailable Miedel, Radha Primary Care Unavailable Miedel, Radha Attending Unavailable Miedel, Radha Referring Unavailable Miedel, Radha Attending Unavailable Miedel, Radha Referring Unavailable Miedel, Radha Primary Care Unavailable Yamilex Welsh Attending Unavailable Yamilex Welsh Referring Unavailable Miedel, Radha Primary Care Unavailable Yaimlex Welsh Attending Unavailable Miedel, Radha Referring Unavailable Cole Mejia Attending Unavailable Yamilex Welsh Attending Unavailable Miedel, Radha Referring Unavailable Miedel, Radha Primary Care Unavailable Jr Oviedo Attending Unavailable Preet Jr Referring Unavailable Cole Mejia Attending Unavailable Miedel, Radha Primary Care Unavailable Miedel, Radha Attending Unavailable Miedel, Radha Referring Unavailable Yamilex Welsh Attending Unavailable Yamilex Welsh Referring Unavailable Miedel, Radha Primary Care Unavailable Miedel, Radha Primary Care Unavailable Miedel, Radha Attending Unavailable Miedel, Radha Referring Unavailable Medications Current Medications Medication Drug Class(es) Dates Sig (Normalized) Sig (Original) amLODIPine 10 mg / hydroCHLOROthiazide 12.5 mg / olmesartan medoxomil 40 mg oral tablet (9 sources) Thiazide Diuretic, Dihydropyridine Calcium Channel Lito, Angiotensin 2 Receptor Lito Start: 12-09-2024 cholecalciferol 0.025 mg oral capsule (9 sources) Vitamin D Start: 12-09-2024 take 1 capsule by mouth once daily 84 hr estradiol 0.49593 mg/hr transdermal system (20 sources) Estrogen Start: 05-12-2025 apply 1 dose transdermal route two times weekly, then apply 1 dose transdermal route once Start: 04-22-2025 Start: 02-04-2025 End: 05-12-2025 apply 1 dose transdermal route two times weekly, then apply 1 dose transdermal route every hour Estradiol (Vivelle-Dot) 0.05 mg/24 hr patch semiweekly Discontinued 1 NMA TD TWICE A WEEK 8 March 29, 2025 8:59am April 22, 2025 10:20am apply 1 patch for 3 days alternating with 1 patch for 4 days each week Start: 01-06-2025 End: 02-04-2025 Estradiol 0.0375 mg/24 hr pa tch semiweekly Discontinued 1 NMA TD TWICE A [...] use. folic acid 0.4 mg oral tablet (9 sources) Start: 12-09-2024 take 0.4 mg by mouth once daily magnesium oxide 500 mg oral capsule (9 sources) Start: 12-09-2024 take 1 capsule by mouth once daily Mecobalamin (Vitamin B12) (9 sources) Start: 12-09-2024 Start: 12-09-2024 Mecobalamin (V itamin B12) 2,500 mcg tablet,chewable Active ug PO December 09, 2024 12:00am meloxicam 15 mg oral tablet (9 sources) Nonsteroidal Anti-inflammatory Drug Start: 12-09-2024 take 1 tablet by mouth once daily olmesartan medoxomil 40 mg oral tablet (5 sources) Angiotensin 2 Receptor Lito Start: 12-22-2020 take 1 tablet by mouth once daily olmesartan (BENICAR) 40 mg tablet Take 1 tablet by mouth once daily. 30 tablet 12/22/2020 Active Comment on above: Take 1 tablet by lynette th once daily. pantoprazole 40 mg delayed release oral tablet (9 sources) Proton Pump Inhibitor Start: 12-09-2024 take 1 tablet by mouth once daily phentermine hydrochloride 37.5 mg oral capsule (20 sources) Sympathomimetic Amine Anorectic Start: 12-09-2024 take 1 capsule by mouth once daily 30 minutes after breakfast Start: 05-19-2018 End: 05-22-2018 take 1 capsule by mouth once daily Phentermine (Adipex-P) 37.5 mg capsule Discontinued 37.5 mg PO DAILY May 19, 2018 12:00am May 22, 2018 11:13am Completed/Discontinued Medications Medication Drug Class(es) Dates Sig (Normalized) Sig (Original) Estradiol (Vivelle-Dot) 0.05 mg/24 hr patch semiweekly (4 sources) Start: 02-04-2025 End: 03-29-2025 apply 1 [...] / vitamin b12 0.5 mg oral tablet (13 sources) Vitamin B12 Start: 05-22-2018 End: 12-09-2024 take 1 tablet by mouth once daily Vitamin Q68-Fgsag Acid 500-400 mcg tablet Discontinued 1 {tbl} PO .COMPLEX May 22, 2018 12:00am December 09, 2024 10:16am 1 tab PO 500 B 12 with 800 folic acid once daily ketorolac tromethamine 10 mg oral tablet (17 sources) Nonsteroidal Anti-inflammatory Drug, Cyclooxygenase Inhibitor Start: 05-28-2017 End: 05-22-2018 take 1 tablet by mouth every six hours as needed Ketorolac 10 mg tablet Discontinued 10 mg PO EVERY 6 HOURS as needed May 19, 2018 12:00am May 22, 2018 11:12am Comment on above: Take 1 tablet by lynette th every 6 hours as needed. losartan potassium 50 mg oral tablet (13 sources) Angiotensin 2 Receptor Lito Start: 05-19-2018 End: 12-09-2024 take 1 tablet by mouth once daily Losartan 50 mg tablet Discontinued 50 mg PO DAILY May 19, 2018 12:00am December 09, 2024 10:15am nitrofurantoin, macrocrystals 25 mg / nitrofurantoin, monohydrate 75 mg oral capsule (7 sources) Nitrofuran Antibacterial Start: 01-26-2025 End: 01-31-2025 take 1 capsule by mouth every twelve hours at mealtime Nitrofurantoin Monohyd/M-Cryst (Macrobid) 100 mg capsule Discontinued 100 mg PO Q12H 10 5 0 January 26, 2025 12:00am January 30, 2025 12:00am January 31, 2025 12:08am must administer with a meal/food progesterone 100 mg oral capsule (20 sources) Progesterone Start: 12-09-2024 End: 04-22-2025 take 1 capsule by mouth once daily in the morning Progesterone Micronized (Prometrium) 100 mg capsule Discontinued 100 mg PO EVERY MORNING 30 6 January 06, 2025 3:31pm April 22, 2025 10:20am off 7 days; repeat cycle sulfacetamide sodium 100 mg/ml / sulfur 45 mg/ml medicated liquid soap (13 sources) Sulfonamide Antibacterial Start: 05-19-2018 End: 12-09-2024 Sulfacetamide Sodium-Sulfur (Rosula) 10-4.5 % cleanser Discontinued 1 NMA TOPICAL DAILY May 19, 2018 12:00am December 09, 2024 10:16am Start: 05-19-2018 Sulfacetamide Sodium-Sulfur (Rosula) 10-4.5 % cleanser Active 1 APPLIC TOPICAL DAILY May 19, 2018 12:00am ZOLMitriptan 5 mg oral tablet (18 sources) Serotonin-1b and Serotonin-1d Receptor Agonist Start: 05-19-2018 End: 12-09-2024 take 1 tablet by mouth once daily as needed Zolmitriptan (Zomig) 5 mg tablet Discontinued 5 mg PO .COMPLEX May 19, 2018 12:00am December 09, 2024 10:16am 5 mg PO daily prn, may repeat X1 if not effective Comment on above: Take at once for cristian quintanillae. May repeat in 2 hours if needed. Problems Active Problems Problem Classification Problem Date Documented Da te Episodic/Chronic Contraceptive and procreative management (20 sources) Patient encounter status; Translations: [Encounter for sterilization] Onset: 08-02-2005 08-02-2005 Episodic Essential hypertension (13 sources) Hypertensive disorder; Translations: [Essential (primary) hypertension] 05-19-2018 Chronic Headache; including migraine (17 sources) Menstrual migraine; Translations: [Menstrual migraine, not intractable, without status migrainosus] Onset: 05-28-2006 08-21-2021 Chronic Menopausal disorders (20 sources) Premature menopause; Translations: [Asymptomatic premature menopause] Onset: 04-27-2015 04-27-2015 Chronic Menstrual disorders (20 sources) Dysmenorrhea; Translations: [Dysmenorrhea, unspecified] Onset: 07-03-2011 07-03-2011 Chronic Nonspecific chest pain (13 sources) Chest pain; Translations: [Chest pain, unspecified] 11-27-2018 Episodic Other gastrointestinal disorders (17 sources) Irritable bowel syndrome; Translations: [Irritable bowel syndrome without diarrhea] Onset: 05-28-2006 05-28-2006 Chronic Other inflammatory condition of skin (13 sources) Rosacea; Translations: [Rosacea, unspecified] 05-19-2018 Chronic Other lower respiratory disease (1 source) Cough; Translations: [Cough] 05-16-2021 Episodic Other non-traumatic joint disorders (1 source) Pain in right shoulder; Translations: [Pain in right shoulder] Onset: 07-01-2025 Episodic Other non-traumatic joint disorders (1 source) Pain in left shoulder; Translations: [Pain in left shoulder] Onset: 07-01-2025 Episodic Other nutritional; endocrine; and metabolic disorders (4 sources) Obesity; Translations: [Obesity, unspecified] Onset: 02-23-2008 02-23-2008 Chronic Other screening for suspected conditions (not mental disorders or infectious disease) (5 sources) Encounter for screening for malignant neoplasm of cervix; Translations: [Encounter for other screening for malignant neoplasm of breast] Onset: 12-04-2023 Episodic Otitis media and related conditions (17 sources) Dysfunction of eustachian tube; Translations: [Other specified disorders of Eustachian tube, unspecified ear] 06-22-2011 Episodic Residual codes; unclassified (13 sources) History of chest pain; Translations: [Personal history of other specified conditions] 11-27-2018 Episodic Residual codes; unclassified (13 sources) Family history of ischemic heart disease; Translations: [Family history of ischemic heart disease and other diseases of the circulatory system] 05-19-2018 Episodic Residual codes; unclassified (13 sources) History of endometrial ablation; Translations: [Other specified postprocedural states] 05-19-2018 Episodic Spondylosis; intervertebral disc disorders; other back problems (17 sources) Sciatica; Translations: [Sciatica, unspecified side] Onset: [...] related to multiparity] Onset: 08-02-2005 08-02-2005 Episodic Genitourinary symptoms and ill-defined conditions (1 source) Dysuria; Translations: [Dysuria] Onset: 01-28-2025 Episodic Menopausal disorders (1 source) Hormone replacement [...] [Hyperacusis, unspecified ear] Onset: 02-25-2009 02-25-2009 Episodic Residual codes; unclassified (1 source) Encounter for cosmetic surgery; Translations: [Encounter for cosmetic surgery] Onset: 02-03-2025 Episodic Results Test Name Value Interpretation Reference Range Facility Shoulder min 2 Viewson 07-01 Shoulder min 2 Views [facility] Imaging Services [address] [place] [address] [id number] Shoulder min 2 Views MR#: [id number] Acct: [id number] Name: GUERLINE CHAMBERLAIN Rep #: [id number] : 1975 F 49 From: Shubham Casanova PCP: Dr. Radha Patrick MD Status: REG CLI Study: Shoulder min 2 Views Date of Exam: 07/01/25 Exam# [id number] Ordering Dr: Radha Patrick MD PROCEDURE: SHOULDER MIN 2 VIEWS 07/01/2025 REASON FOR EXAM: PAIN IN BOTH SHOULDERS TECHNIQUE: Procedure Code: RADSH Modality: DX Procedure: SHOULDER MIN 2 VIEWS Laterality: Bilateral COMPARISON: None. RAD/Shoulder min 2 Views IMPRESSION: No significant arthritic process or joint narrowing is noted. Satisfactory and symmetric osseous alignment is seen bilaterally. Mild degenerative changes and mild gentle dextroscoliosis of the thoracic spine also noted. No acute fracture or dislocation is seen. Reading Location: [place] [address] CC: Dr. Radha Patrick MD Desk Attendant: Signed [facility] Shoulder min 2 Views [facility] Imaging Services [address] [place], [place] [id number] Shoulder min 2 Views MR#: [id number] Acct: [id number] Name: GUERLINE CHAMBERLAIN Rep #: [id number] : 1975 F 49 From: Shubham Casanova PCP: Dr. Radha Patrick MD Status: REG CLI Study: Shoulder min 2 Views Date of Exam: 07/01/25 Exam# [id number] Ordering Dr: Radha Patrick MD PROCEDURE: SHOULDER MIN 2 VIEWS 07/01/2025 REASON FOR EXAM: PAIN IN BOTH SHOULDERS TECHNIQUE: Procedure Code: RADSH Modality: DX Procedure: SHOULDER MIN 2 VIEWS Laterality: Bilateral COMPARISON: None. RAD/Shoulder min 2 Views IMPRESSION: No significant arthritic process or joint narrowing is noted. Satisfactory and symmetric osseous alignment is seen bilaterally. Mild degenerative changes and mild gentle dextroscoliosis of the thoracic spine also noted. No acute fracture or dislocation is seen. Reading Location: [place] [address] CC: Dr. Radha Patrick MD Desk Attendant: Signed [facility] Inital Evaluation (1) - PTon 05-17-2025 Inital Evaluation (1) - PT [facility] [address] [place] [address] / REHABILITATION SERVICES INITIAL EVALUATION MR#: [id number] Acct: [id number] Name: GUERLINE CHAMBERLAIN Rep #: [id number] : 1975 49 From: Domingo Zapata DPT Referring Dr.: Dr. Radha Patrick MD Status: RE G RCR Insurance: [employer] SELF PAY INSURANCE Patient's Visit Information Visit Information Visit Information: GUERLINE CHAMBERLAIN is a 49 year old F referred to Physical Therapy by Dr. Radha Patrick MD with a diagnosis of R hip pain. Date of Evaluation: 05/13/25 Physical Therapist: Domingo Zapata DPT Visit Plan Frequency: 1x/Week Duration: 4 Weeks Plan: 1) lumbar ROM, mostly into extension 2) core and hip strengthening I gave her exercises to work on. She is going to work on these for a few weeks then come back to PT. Subjective Subjective: Pt reports R hip pain for years. Pt reports that the pain is tight and hurts when she lays on it, and the pain is also in the gluteal region. Pt reports it also cleary at times, and that the pain is provoked by long periods of standing, sitting, and doing household activities. Pt reports some trouble sleeping at night as well. Pt reports taking Aleve and that helped the pain as well as stretching. Pt reports both of those helping and giving her some relief. Pt reports that the pain prevents her from doing housework. 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 Pt reports sometimes she gets tingling and numbness at times, particularly when bending, lifting, and twisting. Pt reports also having LBP and a tight back usually at the same time. Pt reports that going into a good posture will alleviate her LBP. Pt also reports that sometimes the pain prevents her from walking. Pt wants to get back to doing household activities and functioning normally. Pt reports a 2/10 here at rest, and a 10/10 at its absolute worst when doing bending, lifting, and twisting. Pain R hip: Pain Intensity (Out of 10): 2 Pain Intensity Range: 10 Objective Objective: POSTURE: Pt. has fairly normal posture in stance. PALPATION: Pt. has tenderness Neuro: norm sensation to light touch in B LE MMT: 5/5 strength in all planes for B LE, poor+ core strength ROM: WNL for L/s in all planes GAIT: normal with out major abnormalities. Balance/Special Test Scores Lower Extremity Functional Score: 57 Goals Goal 1:: Pt will decrease pain while ambulating by 50% in order to improve the completion of household activities Goal Time Frame: 4-6 Weeks Goal 2:: Pt will demonstrate normal lumbar ROM w/o pain in order to complete IADLs Goal Time Frame: 4-6 Weeks Goal 3:: Pt will be I w/HEP in order to further promote functional mobility Goal Time Frame: 2 Weeks Rehabilitation Potential Physical Therapy Diagnosis: Pt. has signs and symptoms consistent with R hip pain. Pt. has good motion of R hip abd lumbar spine, except some tightness with extension. This did seem to have a slight directional preference into extension. Pt. would benefit from PT to work on core strengthening and lumbar ROM into extension. Rehabilitation Potential: Excellent Anticipated Interventions Patient/Client Instruction: Educate patient on: Condition, Plan of Care, Risk Factors and Benefits of Fitness Program For the Purpose of:: To foster healthy habits, To improve decision making, To facilitate caregiver knowledge, To improve self management, To prevent re-injury and To improve ability to perform tasks related to life management Therapeutic Exercise to Include: Strength training, Power training, Passive ROM, Active ROM and Scapular Strength/Stabilization For the Purpose of:: To decrease pain, To increase ROM, To improve nutrient delivery to tissue, To increase oxygenation perfusion, To improve muscle performance and motor function and To improve ab ility to perform ADL's Text: Thank you for the opportunity to evaluate your patient. For Medicare and Medicare HMO plans, please review the plan of care and approve it. It will need to be FAXED BACK to us at [phone] for Medicare purposes. For Medicare only, by signing this I certify the plan of care. Please let me know if there are questions or concerns regarding this plan of care. Physician Signature: Date: 05/17/25 1034 CC: Dr. Radha Patrick MD CLS Signed Normal [facility] Hemoglobin A1con 05-05-2025 HbA1c (Bld) [Mass fraction] 5.6 % Normal <=5.6 [facility] Comment on above: Order Comment: PATIE NT WANTED TO DO A1C ONLY Result Comment: Norm al < 5.7 % Prediabetic 5.7 - 6.4 % Diabetic >or= 6.5 % Please note range changes. Performed By: #### L [phone] #### [facility] [address] [place], [address] Hemoglobin A1c percentageon 05-05-2025 HbA1c (Bld) [Mass fraction] 5.6 % <5.7 [facility] Comment on above: Normal < 5.7 % Predi abetic 5.7 - 6.4 % Diabetic >or= 6.5 % Please note range changes. Breast imaging reportOrdered By: Scott Pepe on 04-22-2025 Study report [facility] Imaging Services [address] [place], [place] [address] SCRN MAMM (CAD)W/JACQUELINE BILAT MR#: [id number] Acct: [id number] Name: GUERLINE CHAMBERLAIN Rep #: [id number] : 1975 F 49 From: Kevin Pepe MD PCP: Dr. Radha Patrick MD Status: REG CLI Study:SCRN MAMM (CAD)W/JACQUELINE BILAT Date of Exa m: 04/22/25 Exam# [id number] Ordering Dr: Yamilex Welsh DIABETES MANAGER-C EXAM: SCRN MAMM (CAD)W/JACQUELINE BILAT DATE: 04/22/2025 CLINICAL HISTORY: F, Age 49 y/o , BREAST CANCER SCREENING No family history. TECHNIQUE: SCRN MAMM (CAD)W/JACQUELINE BILAT COMPARISON: Prior exam(s) dated April 20, 2024.. FINDINGS: TISSUE DENSITY: The breasts are heterogeneously dense, which may obscure small masses. Bilateral Breast Mammographic Findings: No significant masses, calcifications or other abnormalities are identified. Stable small bilateral axillary lymph nodes. No suspicious masses, areas of developing architectural distortion, or suspicious calcifications. There has been no significant interval change. BI/SCRN MAMM (CAD)W/JACQUELINE BILAT IMPRESSION: Stable bilateral screening mammogram. OVERALL FINAL ASSESSMENT BI-RADS 2: BENIGN RECOMMENDATION: Routine annual follow-up in 1 Year A letter with findings and recommendations will be mailed to the patient. Reading Location: [id number] CC: AMANDA Welsh; Dr. 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 Is patient in pain?: No Allergies No Known Allergies Allergy (Verified 04/22/25 10:04) Medications ???Medication ???Instructions ???Recorded ???Confirmed ???Type cholecalciferol (vitamin D3) 25 25 mcg PO QDAY 12/09/24 04/22/25 H istory mcg (1,000 unit) capsule folic acid 400 mcg tablet 0.4 mg PO QDAY 12/09/24 04/22/25 H istory magnesium oxide 500 mg capsule 500 mg PO QDAY 12/09/24 04/22/25 H istory mecobalamin (vitamin B12) 2,500 mcg PO 12/09/24 04/22/25 History mcg chewable tablet meloxicam 15 mg tablet 15 mg PO QDAY 12/09/24 04/22/25 Hi story olmesartan 40 mg-amlodipine 10 1 tab PO QDAY 12/09/24 04/22/25 Hi story mg-hydrochlorothiazide 12.5 mg tablet pantoprazole 40 mg tablet,delayed 40 mg PO QDAY 12/09/24 04/22/25 H istory release phentermine 37.5 mg capsule 37.5 mg PO QDAY 12/09/24 04/22/25 History Vane 0.05 mg/24 hr transdermal 1 patch transdermal 2XW #8 ea 03/2704/22/25 Rx patch (estradiol) estradiol 0.01% (0.1 mg/gram) See Rx Instructions vaginal DAILY 04/22/25 04/22/25 Rx vaginal cream #42.5 grams progesterone micronized 100 mg 100 mg PO QHS #30 caps 04/22/25 Rx capsule (Prometrium) Is last menstrual period known: No Post menopausal: Yes Patient : No : No PFSH Medical History H/O recurrent pneumonia Osteoarthritis [...] training frequency: 1-2 times per week HPI Encounter for routine gynecological examination Details: GUERLINE CHAMBERLAIN is a 49 year old who presents for annual exam. She has questions regarding her HRT; she feels her hotflashes, night sweats, irritibility is worsening. She recently had FSH/Estradiol completed and continued confirmation of post menopausal levels. She is currently taking the 0.05mg dosing; recently switched out to a generic brand. Unsure if this has any impact on absorption. She has also been experiencing vaginal dryness and discomfort with intercourse. She reports no vaginal bleeding. Last PAP: 2023; normal. HPV neg History of abnormal PAP: no Last mammogram: due and scheduled today History of abnormal mammogram: no Colon cancer screening: cologuard 2024; normal. Other preventative health care screenings: Radha Patrick; PCP Female Reproductive History Questions: metrorrhagia: No, sexually active: Yes, dyspareunia: No and PCB: No Menopausal Symptoms: Yes hot flashes, Yes night sweats, Yes weight change, Yes mood changes, Yes difficulty concentrating, Yes sleep problems and Yes change in libido Menopausal Treatment: Yes HRT ROS Const Constitutional: Reports night sweats; Denies chills, fatigue, fever(s), headache(s) or weight loss Eyes Eyes: Denies change in vision ENT ENT: Denies dizziness Cardio Card: Denies chest pain at rest or palpitations Resp Resp: Denies cough GI GI: Denies abdominal pain, constipation or nausea : Reports hot flashes; Denies difficulty voiding, dysuria, hematuria, nipple discharge, pelvic pain, prolapse symptoms, urinary incontinence, vaginal discharge, vaginal dryness, vaginal odor or vaginal pruritus Skin Skin/Breast: Denies alopecia, rash, breast mass, breast pain, breast skin changes or nipple discharge Neuro Neuro: Denies dizziness Psych P (more content not included)... Normal [facility] SCRN MAMM (CAD)W/JACQUELINE [place]me[place] n 04-22-2025 SCRN MAMM (CAD)W/JACQUELINE HORVATH [facility] Imaging Services [address] [place], [place] [id number] SCRN MAMM (CAD)W/JACQUELINE BILAT MR#: [id number] Acct: [id number] Name: GUERLINE CHAMBERLAIN Rep #: [id number] : 1975 F 49 From: Scott ward MD PCP: Dr. Radha Patrick MD Status: [facility] Study: SCRN MAMM (CAD)W/JACQUELINE BILAT Date of Exam: 03/27 04/19 Exam# [id number] Ordering Dr: Yamilex Welsh EXAM: SCRN MAMM (CAD)W/JACQUELINE BILAT DATE: 04/22/2025 CLINICAL HISTORY: F, Age 49 y/o , BREAST CANCER SCREENING No family history. TECHNIQUE: SCRN MAMM (CAD)W/JACQUELINE BILAT COMPARISON: Prior exam(s) dated April 20, 2024.. FINDINGS: TISSUE DENSITY: The breasts are heterogeneously dense, which may obscure small masses. Bilateral Breast Mammographic Findings: No significant masses, calcifications or other abnormalities are identified. Stable small bilateral axillary lymph nodes. No suspicious masses, areas of developing architectural distortion, or suspicious calcifications. There has been no significant interval change. BI/SCRN MAMM (CAD)W/JACQUELINE BILAT IMPRESSION: Stable bilateral screening mammogram. OVERALL FINAL ASSESSMENT BI-RADS 2: BENIGN RECOMMENDATION: Routine annual follow-up in 1 Year A letter with findings and recommendations will be mailed to the patient. Reading Location: [id number] CC: DIABETES MANAGERAniya Welsh; Dr. Radha Patrick MD Desk Attendant: Signed Normal [facility] Estradiolon 04-14-2025 ESTRADIOL 8.7 pg/mL Normal [facility] Comment on above: Result Comment: FEMA LES [...] 18. Performed By: #### L 3100.5125, L3300.1750 ####[facility] [address] [place], [place], [address] Follicle Stimulating Hormone on 04-14-2025 FSH 58.7 mIU/mL Normal [facility] Comment on above: Result Comment: FEMA LE: Follicular: 1.4 - 18.1 mIU/mL Midcycle: 3.4 - 33.4 mIU/mL Luteal: 1.5 - 9.1 mIU/mL Post Menopause: 23.0 - 116.3 mIU/mL MALE: 1.4 - 18.1 mIU/mL Performed By: #### L 3100.5125, L3300.1750 ####[facility] [address] [place], [place], [id number] Serum or plasma estradiol me asurement after follitropin dose (mass/volume)Ordered By: Yamilex Welsh on 04-14-2025 E2 post dose follitropin [Mass/Vol] 8.7 pg/mL [facility] Comment on above: FEMALES ADULT FEMALE : [...] Auto (Unsp spec) [#/Vol] 2.66 10*3/uL 0.83-4.51 [facility] Absolute neutrophil countOrd ered By: Radha Patrick on 02-12-2025 Neutrophils (Bld) [#/Vol] 3.7 10*3/uL 2.0-7.7 [facility] Anion gap in Serum or Plasma Ordered By: Radha Patrick on 02-12-2025 Anion gap [Moles/Vol] 13 mmol/L 01-07 [facility] Automated lymphocyte count a s percentage of total leukocytesOrdered By: Radha Patrick on 02-12-2025 Lymphocytes/100 WBC Auto (Unsp spec) 36.3 % - [facility] BUN/creatinine ratioOrdered By: Radha Patrick on 02-12-2025 Urea nitrogen/Creatinine [Mass ratio] 16.2 mg/mg 06-14 [facility] Basophil percentageOrdered B y: Radha Patrick on 02-12-2025 Basophils/100 WBC (Bld) 0.7 % 0-1 [facility] Bilirubin, totalOrdered By: Radha Patrick on 02-12-2025 Bilirubin [Mass/Vol] 0.31 mg/dL 0.00-1.30 [facility] CBC W/Diff, Automatedon 01-25 Absolute Lymph 2.66 X10 3/uL Normal 0.83-4.51 [facility] Comment on above: Performed By: #### L 100.0100, L500.4050, L500.4100, L501.9520 #### [facility] [address] [place], [address] Absolute Neut 3.7 X10 3/uL Normal 2.0-7.7 [facility] Comment on above: Performed By: #### L 100.0100, L500.4050, L500.4100, L501.9520 #### [facility] [address] [place], [address] Basophils/100 WBC (Bld) 0.7 % Normal 0-1 [facility] Comment on above: Performed By: #### L 100.0100, L500.4050, L500.4100, L501.9520 #### [facility] [address] [place], [address] Eosinophils/100 WBC (Bld) 1.8 % Normal 0-5 [facility] Comment on above: Performed By: #### L 100.0100, L500.4050, L500.4100, L501.9520 #### [facility] [address] [place], [address] Erythrocyte distribution width (RBC) [Ratio] 13.0 % Normal 11.6-14.6 [facility] Comment on above: Performed By: #### L 100.0100, L500.4050, L500.4100, L501.9520 #### [facility] [address] [place], [address] Hematocrit (Bld) [Volume fraction] 42.2 % Normal 37-47 [facility] Comment on above: Performed By: #### L 100.0100, L500.4050, L500.4100, L501.9520 #### [facility] [address] [place], [address] Hemoglobin (Bld) [Mass/Vol] 13.8 g/dL Normal 12.0-15.0 [facility] Comment on above: Performed By: #### L 100.0100, L500.4050, L500.4100, L501.9520 #### [facility] [address] [place], [address] IG% 0.300 Normal 0.0-0.9 [facility] Comment on above: Result Comment: IG% - Immature Granulocytes (promyelocytes, myelocytes and metamyelocytes) > 1% indicates that a LEFT SHIFT is Present. Performed By: #### L 100.0100, L500.4050, L500.4100, L501.9520 #### [facility] [address] [place], [address] Lymphocytes/100 WBC (Bld) 36.3 % Normal 19-41 [facility] Comment on above: Performed By: #### L 100.0100, L500.4050, L500.4100, L501.9520 #### [facility] [address] [place], [address] MCH (RBC) [Entitic mass] 29.7 pg Normal 27.0-32.0 [facility] Comment on above: Performed By: #### L 100.0100, L500.4050, L500.4100, L501.9520 #### [facility] [address] [place], [address] MCHC (RBC) [Mass/Vol] 32.7 g/dL Normal 32-36 [facility] Comment on above: Performed By: #### L 100.0100, L500.4050, L500.4100, L501.9520 #### [facility] [address] [place], [address] MCV (RBC) [Entitic vol] 90.8 fL Normal 81-99 [facility] Comment on above: Performed By: #### L 100.0100, L500.4050, L500.4100, L501.9520 #### [facility] [address] [place], [address] Monocytes/100 WBC (Bld) 10.8 % High 0-10 [facility] Comment on above: Performed By: #### L 100.0100, L500.4050, L500.4100, L501.9520 #### [facility] [address] [place], [address] Neutrophils/100 WBC (Bld) 50.1 % Normal 47-70 [facility] Comment on above: Performed By: #### L 100.0100, L500.4050, L500.4100, L501.9520 #### [facility] [address] [place], [address] Nucleated RBC (Bld) [#/Vol] 0 10*3/uL Normal 0-5 [facility] Comment on above: Performed By: #### L 100.0100, L500.4050, L500.4100, L501.9520 #### [facility] [address] [place], [address] Platelet mean volume (Bld) [Entitic vol] 9.9 fL Normal 6.2-12.0 [facility] Comment on above: Performed By: #### L 100.0100, L500.4050, L500.4100, L501.9520 #### [facility] [address] [place], [address] Platelets (Bld) [#/Vol] 347 10*3/uL Normal 150-450 [facility] Comment on above: Performed By: #### L 100.0100, L500.4050, L500.4100, L501.9520 #### [facility] [address] [place], [address] RBC (Bld) [#/Vol] 4.65 10*6/uL Normal 4.2-5.4 [facility] Comment on above: Performed By: #### L 100.0100, L500.4050, L500.4100, L501.9520 #### [facility] [address] [place], [address] RDW SD 42.8 fl Normal 35.1-43.9 [facility] Comment on above: Performed By: #### L 100.0100, L500.4050, L500.4100, L501.9520 #### [facility] [address] [place], [address] WBC (Bld) [#/Vol] 7.3 10*3/uL Normal 4.4-11.0 [facility] Comment on above: Performed By: #### L 100.0100, L500.4050, L500.4100, L501.9520 #### [facility] [address] [place], [address] Calculated very low density lipoprotein (VLDL) cholesterol measurementOrdered By: Radha Patrick on 02-12-2025 Calculated very low density lipoprotein (VLDL) cholesterol measurement 32 mg/dL 5-40 [facility] Carbon dioxide, total [Moles /volume] in Central venous bloodOrdered By: Radha Patrick on 02-12-2025 CO2 [Moles/Vol] 27.3 mmol/L 21.0-32.0 [facility] Chloride assayOrdered By: Maycol Patrick on 02-12-2025 Chloride [Moles/Vol] 100 mmol/L 98-108 [facility] Comprehensive Metabolic Prof ilon 02-12-2025 Albumin [Mass/Vol] 4.3 g/dL Normal 3.5-5.0 [facility] Comment on above: Performed By: #### L 100.0100, L500.4050, L500.4100, L501.9520 #### [facility] [address] [place], [address] Albumin/Globulin [Mass ratio] 1.4 {ratio} Normal 0.9-2.4 [facility] Comment on above: Performed By: #### L 100.0100, L500.4050, L500.4100, L501.9520 #### [facility] [address] [place], [address] ALK PHOS 70 U/L Normal 35-104 [facility] Comment on above: Performed By: #### L 100.0100, L500.4050, L500.4100, L501.9520 #### [facility] [address] [place], [address] ALT [Catalytic activity/Vol] 38 U/L High <=34 [facility] Comment on above: Performed By: #### L 100.0100, L500.4050, L500.4100, L501.9520 #### [facility] [address] [place], [address] AST [Catalytic activity/Vol] 27 U/L Normal <=31 [facility] Comment on above: Performed By: #### L 100.0100, L500.4050, L500.4100, L501.9520 #### [facility] [address] [place], [address] Bilirubin [Mass/Vol] 0.31 mg/dL Normal 0.00-1.30 [facility] Comment on above: Performed By: #### L 100.0100, L500.4050, L500.4100, L501.9520 #### [facility] [address] [place], [address] BUN/CRE 16.2 RATIO Normal 10-20 [facility] Comment on above: Performed By: #### L 100.0100, L500.4050, L500.4100, L501.9520 #### [facility] [address] [place], [address] Calcium [Mass/Vol] 9.6 mg/dL Normal 7.6-11.0 [facility] Comment on above: Performed By: #### L 100.0100, L500.4050, L500.4100, L501.9520 #### [facility] [address] [place], [address] Chloride [Moles/Vol] 100 mmol/L Normal 98-108 [facility] Comment on above: Performed By: #### L 100.0100, L500.4050, L500.4100, L501.9520 #### [facility] [address] [place], [address] CO2 [Moles/Vol] 27.3 mmol/L Normal 21.0-32.0 [facility] Comment on above: Performed By: #### L 100.0100, L500.4050, L500.4100, L501.9520 #### [facility] [address] [place], [address] Creatinine [Mass/Vol] 0.85 mg/dL Normal 0.70-1.20 [facility] Comment on above: Performed By: #### L 100.0100, L500.4050, L500.4100, L501.9520 #### [facility] [address] [place], [address] GAP 13 Normal 5-15 [facility] Comment on above: Performed By: #### L 100.0100, L500.4050, L500.4100, L501.9520 #### [facility] [address] [place], [address] GFR/1.73 sq M.predicted among non-blacks MDRD (S/P/Bld) [Vol rate/Area] 85 mL/min/{1.73_m2} Normal >60 [facility] Comment on above: Result Comment: mL/m in/1.73m2 CKD-EPI Creatinine Equation (2020) Performed By: #### L 100.0100, L500.4050, L500.4100, L501.9520 #### [facility] [address] [place], [address] Globulin (S) [Mass/Vol] 3.0 g/dL Normal 2.2-4.2 [facility] Comment on above: Performed By: #### L 100.0100, L500.4050, L500.4100, L501.9520 #### [facility] [address] [place], [address] Glucose [Mass/Vol] 101 mg/dL High 70-99 [facility] Comment on above: Performed By: #### L 100.0100, L500.4050, L500.4100, L501.9520 #### [facility] [address] [place], [address] Potassium [Moles/Vol] 3.7 mmol/L Normal 3.3-5.1 [facility] Comment on above: Performed By: #### L 100.0100, L500.4050, L500.4100, L501.9520 #### [facility] [address] [place], [address] Sodium [Moles/Vol] 140 mmol/L Normal 133-145 [facility] Comment on above: Performed By: #### L 100.0100, L500.4050, L500.4100, L501.9520 #### [facility] [address] [place], [address] T PROT 7.3 g/dL Normal 5.9-8.4 [facility] Comment on above: Performed By: #### L 100.0100, L500.4050, L500.4100, L501.9520 #### [facility] [address] [place], [address] Urea nitrogen [Mass/Vol] 14 mg/dL Normal 4-19 [facility] Comment on above: Performed By: #### L 100.0100, L500.4050, L500.4100, L501.9520 #### [facility] [address] [place], [address] Eosinophil percentageOrdered By: Radha Patrick on 02-12-2025 Eosinophils/100 WBC (Bld) 1.8 % 0-5 [facility] Erythrocyte distribution wid th ratioOrdered By: Radha Patrick on 02-12-2025 Erythrocyte distribution width (RBC) [Ratio] 13.0 % 11.6-14.6 [facility] Erythrocyte distribution wid th standard deviationOrdered By: Radha Patrick on 02-12-2025 Erythrocyte distribution width (RBC) [Ratio] 42.8 fl 35.1-43.9 [facility] Glomerular filtration rate ( GFR) estimation/1.73 sq m using serum, plasma, or whole bOrdered By: Radha Patrick on 02-12-2025 GFR/1.73 sq M.predicted among non-blacks MDRD (S/P/Bld) [Vol rate/Area] 85 mL/min/{1.73_m2} >60 [facility] Comment on above: mL/min/1.73m2 CKD-EP I Creatinine Equation (2020) HIP, UNI W/ Pelvis 2-3 Views on 02-12-2025 HIP, UNI W/ Pelvis 2-3 Views [facility] Imaging Services [facility] [place] [address] HIP, UNI W/ Pelvis 2-3 Views MR#: [id number] Acct: [id number] Name: GUERLINE CHAMBERLAIN Rep #: [id number] : 1975 F 49 From: Jermain Tejada MD PCP: Dr. Radha Patrick MD Status: REG CLI Study: HIP, UNI W/ Pelvis 2-3 Views Date of Exam: Exam# [id number] Ordering Dr: Radha Patrick MD EXAM: XR [...] Views IMPRESSION: No acute fracture. Reading Location: [facility] CC: Dr. Radha Patrick MD Desk Attendant: Signed Normal [facility] Hematocrit Auto (Bld) [Volum e fraction]Ordered By: Radha Patrick on 02-12-2025 Hematocrit (Bld) [Volume fraction] 42.2 % 37-47 [facility] Hemoglobin measurementOrdere d By: Radha Patrick on 02-12-2025 Hemoglobin (Bld) [Mass/Vol] 13.8 g/dL 12.0-15.0 [facility] Immature granulocytes/100 WB C Auto (Bld)Ordered By: Radha Patrick on 02-12-2025 Immature granulocytes/100 WBC (Bld) 0.300 % 0.0-0.9 [facility] Comment on above: IG% - Immature Granu locytes (promyelocytes, myelocytes and metamyelocytes) > 1% indicates that a LEFT SHIFT is Present. LDL calc ser/plasOrdered By: Radha Patrick on 02-12-2025 Cholesterol in LDL [Mass/Vol] 146 mg/dL [facility] Comment on above: Kgzcoftkqp=293-490 m g/dL & Higher Gfkm=782 mg/dL or greater Laboratory - Chemistry and C hemistry - challengeOrdered By: Radha Patrick on 02-12-2025 AST [Catalytic activity/Vol] 27 U/L <32 [facility] Lipid Profileon 02-12-2025 CHOL:HDL 4.78 Normal [facility] Comment on above: Performed By: #### L 100.0100, L500.4050, L500.4100, L501.9520 #### [facility] [address] [place], [place], [address] Cholesterol [Mass/Vol] 225 mg/dL High <=200 [facility] Comment on above: Result Comment: Chol esterol level, Desirable <200 mg/dL Borderline high cholesterol 200-239 mg/dL High cholesterol >=240 mg/dL Recommendations of the NCEP Adult Treatment Panel for the following risk-cutoff thresholds for the [place] population. Performed By: #### L 100.0100, L500.4050, L500.4100, L501.9520 #### [facility] [address] [place], [address] Cholesterol in HDL [Mass/Vol] 47 mg/dL Normal [facility] Comment on above: Result Comment: Maribel onal Cholesterol Education Program (NCEP) guidelines: <40 mg/dL: Low HDL-cholesterol (major risk factor for CHD) >= 60 mg/dL: High HDL-cholesterol (negative risk factor for CHD) HDL-cholesterol is affected by a number of factors, e.g. smoking, exercise, hormones, sex and age. Performed By: #### L 100.0100, L500.4050, L500.4100, L501.9520 #### [facility] [address] [place], [address] Cholesterol in LDL [Mass/Vol] 146 mg/dL Normal [facility] Comment on above: Result Comment: Bord cvwuuw=503-245 mg/dL Higher Cilj=319 mg/dL or greater Performed By: #### L 100.0100, L500.4050, L500.4100, L501.9520 #### [facility] [address] [place], [address] Cholesterol in VLDL [Mass/Vol] 32 mg/dL Normal 5-40 [facility] Comment on above: Performed By: #### L 100.0100, L500.4050, L500.4100, L501.9520 #### [facility] [address] [place], [address] Triglyceride [Mass/Vol] 161 mg/dL Normal [facility] Comment on above: Result Comment: The drugs N-Acetylcysteine and Metamizole may falsely depress this assay. Normal range: <150 mg/dL Borderline High: 150-199 mg/dL High: 200-499 mg/dL Very High: >500 mg/dL Performed By: #### L 100.0100, L500.4050, L500.4100, L501.9520 #### [facility] [address] [place], [address] MCV (mean corpuscular volume ) determinationOrdered By: Radha Patrick on 02-12-2025 MCV (RBC) [Entitic vol] 90.8 fL 81-99 [facility] Mean corpuscular hemoglobin (MCH) determinationOrdered By: Radha Patrick on 02-12-2025 MCH (RBC) [Entitic mass] 29.7 pg 27.0-32.0 [facility] Mean corpuscular hemoglobin concentration (MCHC) determinationOrdered By: Radha Patrick on 02-12-2025 MCHC (RBC) [Mass/Vol] 32.7 g/dL 32-36 [facility] Mean platelet volume determi nationOrdered By: Radha Patrick on 02-12-2025 Platelet mean volume (Bld) [Entitic vol] 9.9 fL 6.2-12.0 [facility] Monocyte percentageOrdered B y: Radha Patrick on 02-12-2025 Monocytes/100 WBC (Bld) 10.8 % High 0-10 [facility] Neutrophil percentageOrdered By: Radha Patrick on 02-12-2025 Neutrophils/100 WBC (Bld) 50.1 % 47-70 [facility] Nucleated red blood cell per centageOrdered By: Radha Patrick on 02-12-2025 Nucleated RBC/100 WBC (Bld) [Ratio] 0 % 0-5 [facility] Platelet countOrdered By: Maycol Patrick on 02-12-2025 Platelets (Bld) [#/Vol] 347 10*3/uL 150-450 [facility] Potassium measurement (mass/ volume)Ordered By: Radha Patrick on 02-12-2025 Potassium (Unsp spec) [Mass/Vol] 3.7 mmol/L 3.3-5.1 [facility] RBC Auto (Bld) [#/Vol]Ordere d By: Radha Patrick on 02-12-2025 RBC (Bld) [#/Vol] 4.65 10*6/uL 4.2-5.4 [facility] Screening total cholesterol/ high density lipoprotein (HDL) cholesterol ratioOrdered By: Radha Patrick on 02-12-2025 Cholesterol.total/Chol esterol in HDL [Mass ratio] 4.78 {ratio} [facility] Serum creatinine measurement (mass/volume)Ordered By: Radha Patrick on 02-12-2025 Creatinine [Mass/Vol] 0.85 mg/dL 0.70-1.20 [facility] Serum globulin measurementOr dered By: Radha Patrick on 02-12-2025 Globulin (S) [Mass/Vol] 3.0 g/dL 2.2-4.2 [facility] Serum glucose measurement (m ass/volume)Ordered By: Radha Patrick on 02-12-2025 Glucose [Mass/Vol] 101 mg/dL High 70-99 [facility] Serum or plasma alanine wayne otransferase (ALT) measurementOrdered By: Radha Patrick on 02-12-2025 ALT [Catalytic activity/Vol] 38 U/L High <35 [facility] Serum or plasma albumin shelli urement (mass/volume)Ordered By: Radha Patrick on 02-12-2025 Albumin [Mass/Vol] 4.3 g/dL 3.5-5.0 [facility] Serum or plasma albumin/glob ulin mass ratioOrdered By: Radha Patrick on 02-12-2025 Albumin/Globulin [Mass ratio] 1.4 {ratio} 0.9-2.4 [facility] Serum or plasma alkaline chelsea sphatase measurementOrdered By: Radha Patrick on 02-12-2025 ALP [Catalytic activity/Vol] 70 U/L 35-104 [facility] Serum or plasma calcium shelli urement (mass/volume)Ordered By: Radha Patrick on 02-12-2025 Calcium [Mass/Vol] 9.6 mg/dL 7.6-11.0 [facility] Serum or plasma cholesterol in HDL measurement (mass/volume)Ordered By: Radha Patrick on 02-12-2025 Cholesterol in HDL [Mass/Vol] 47 mg/dL >40 [facility] Comment on above: National Cholesterol Education Program (NCEP) guidelines:<40 mg/dL: Low HDL-cholesterol (major risk factor for CHD)>= 60 mg/dL: High HDL-cholesterol (negative risk factor for CHD)HDL-cholesterol is affected by a number of factors, e.g. smoking, exercise, hormones, sex and age. Serum or plasma cholesterol measurement (mass/volume)Ordered By: Radha Patrick on 02-12-2025 Cholesterol [Mass/Vol] 225 mg/dL High <201 [facility] Comment on above: Cholesterol level, D esirable <200 mg/dLBorderline high cholesterol 200-239 mg/dLHigh cholesterol >=240 mg/dLRecommendations of the NCEP Adult Treatment Panel for the following risk-cutoff thresholds for the [place] population. Serum or plasma urea nitroge n measurement (mass/volume)Ordered By: Radha Patrick on 02-12-2025 Urea nitrogen [Mass/Vol] 14 mg/dL 4-19 [facility] Sodium levelOrdered By: Coco Patrick on 02-12-2025 Sodium [Moles/Vol] 140 mmol/L 133-145 [facility] TSH DL <= 0.005 mIU/L QnOrde red By: Radha Patrick on 02-12-2025 TSH Qn 2.830 uIU/mL 0.300-4.20 0 [facility] Thyroid Stim Hormone (TSH)on 02-12-2025 TSH 2.830 uIU/mL Normal 0.300-4.20 0 [facility] Comment on above: Performed By: #### L 100.0100, L500.4050, L500.4100, L501.9520 #### [facility] [address] [place], [address] Total proteinOrdered By: Hector Patrick on 02-12-2025 Protein [Mass/Vol] 7.3 g/dL 5.9-8.4 [facility] Triglycerides measurementOrd ered By: Radha Patrick on 02-12-2025 Triglyceride [Mass/Vol] 161 mg/dL <199 [facility] Comment on above: The drugs N-Acetylcy steine and Metamizole may falsely depress this assay. Normal range: <150 mg/dLBorderline High: 150-199 mg/dLHigh: 200-499 mg/dLVery High: >500 mg/dL White blood cell (WBC) count Ordered By: Radha Patrick on 02-12-2025 WBC (Bld) [#/Vol] 7.3 10*3/uL 4.4-11.0 [facility] Urine Cultureon 01-28-2025 URC Escherichia coli [place] Count >100,000 Escherichia coli: REACTION Ampicillin Islt [...] TMP SMX Islt SANJAY <=20 S Normal [facility] Comment on above: Performed By: #### M 100.2200 ####[facility] [address] [place], [address] Laboratory - Chemistry and C hemistry - challengeOrdered By: Cole Rodarte on 01-26-2025 Bilirubin Ql (U) Negative [facility] Glucose Ql (U) Negative [facility] Ketones Ql (U) Negative [facility] pH (U) 7.5 [pH] [facility] Specific gravity (U) [Rel density] 1.010 [facility] Urobilinogen (U) [Mass/Vol] 0.9318098 mg/dL [facility] Laboratory - Hematology and Cell countsOrdered By: Cole Rodarte on 01-26-2025 Hemoglobin Ql (U) Hemolyzed [facility] Laboratory - Specimen inform ationOrdered By: Cole Rodarte on 01-26-2025 Clarity (U) Cloudy [facility] Color (U) Arely [facility] Laboratory - UrinalysisOrder ed By: Cole Rodarte on 01-26-2025 Nitrite Ql (U) Positive [facility] Protein Ql (U) 2+ [facility] No Panel InformationOrdered By: Cole Rodarte on 01-26-2025 Urine Leukocytes Positive [facility] Urine Non-Hemolyzed Blood Large [facility] Urgent Care Visit Reporton 0 01-26-2025 Urgent Care Visit Report [facility] [address], [address] [place] [address] OFFICE VISIT Date of Service: 01/26/25 MR#: [id number] Acct: [id number] Name: GUERLINE CHAMBERLAIN Rep #: [id number] : 1975 Provider: MALIA Kelly Age/Sex: 49/F Location: [facility] Status: Signed Intake Vital Signs 01/06/25 13:02 [...] painful urination since last night. [facility] Medical History H/O recurrent pneumonia Osteoarthritis Chronic [...] color/ character of urine or stool. No [id number] products taken to assist. No other associated [...] as instructed (more content not included)... Normal [facility] Urine cultureOrdered By: Agustin Rodarte on 01-26-2025 Bacteria identified Cx Nom (U) Escherichia coli Abnormal [facility] Estradiolon 01-06-2025 ESTRADIOL 7.0 pg/mL Normal [facility] Comment on above: Result Comment: FEMA LES [...] 18. Performed By: #### L 3100.5125, L3300.1750 ####[facility] [id number] [place], [place], [address] Follicle Stimulating Hormone on 01-06-2025 FSH 62.3 mIU/mL Normal [facility] Comment on above: Result Comment: FEMA LE: [...] - 10.8 mIU/mL Performed By: #### L 3100.5125, L3300.1750 ####[facility] [id number] [place], [address] [employer] Office Visit Reporton 01-06-2025 [employer] Office Visit Report [facility] [address], [address] [place] [address] OFFICE VISIT Date of Service: 01/06/25 MR#: [id number] Acct: [id number] Name: GUERLINE CHAMBERLAIN Rep #: [id number] : 1975 Provider: AMANDA Nam Age/Sex: 49/F Location: [facility] Status: Signed Intake Vital Signs 05/22/18 11:10 01/01/25 10:45 01/06/25 13:02 Height 5 ft 3 in 5 ft 3 in 5 ft 3 in Weight: 182 lb BMI 32.2 BP 123/87 H Intake Visit Reasons: HOROMONE THERAPY Before School Babysitter Required: No Is patient in pain?: No [...] on this a year ago with Dr. Sky Bennett. She reports she had ablation completed prior [...] comfortable and no acute distress Orientation: alert [facility] Head: normal to inspection and normocephalic Eyes [...] Neuro Mo (more content not included)... Normal [facility] Serum or plasma estradiol me asurement after follitropin dose (mass/volume)Ordered By: Yamilex Welsh on 01-06-2025 E2 post dose follitropin [Mass/Vol] 7.0 pg/mL [facility] Comment on above: FEMALES ADULT FEMALE : [...] Report on 01-01-[address] [facility] [address] [place] [address] OFFICE VISIT Date of Service: 01/01/25 MR#: [id number] Acct: [id number] Name: GUERLINE CHAMBERLAIN Rep #: [id number] : 1975 Provider: Dr. Jr Oviedo MD Age/Sex: 49/F Location: [facility] Status: Signed Intake Vital Signs 01/01/25 [...] QAM 12/09/24 01/01/25 Hi story capsule (Prometrium) [facility] Medical History H/O recurrent pneumonia Osteoarthritis Chronic [...] No numb (more content not included)... Normal [facility] Thyroidon 09-22-2024 Thyroid [facility] [address] [place] [id number] Thyroid MR#: [id number] Acct: [id number] Name: GUERLINE CHAMBERLAIN Rep #: [id number] : 1975 F 48 From: Scott ward MD PCP: Dr. Radha Patrick MD Status: REG CLI Study: Thyroid Date of Exam: 09/22/24 Exam# [id number] Ordering Dr: Radha Patrick MD PROCEDURE: Thyroid [...] mm right cervical lymph node. Reading Location: [place] [address] CC: Dr. Radha Patrick MD Desk Attendant: Signed [facility] Senior Ux Developer Cytology Reporton 2023 Senior Ux Developer Cytology Report . Pathology Reports Accession: Collected Date/Time: Received Date/Time: Pathologist: [id number] 12/04/2023 11:01 EDT 12/04/2023 18:00 EDT Senior [employer] Developer Cytology Report SPECIMEN: Specimen Description: Liquid Prep [...] and evaluated with the assistance of the [employer] ThinPrep Test Imaging System. Pathology Reports Accession: Collected Date/Time: Received Date/Time: Pathologist: [id number] 12/04/2023 11:01 EDT 12/04/2023 18:00 EDT Electronically Signed by Pathology report verified by [facility] Screened by: DW Electronically signed by Corina Alva Sign-Out Date: 12/13/2023 09:01 Performing Lab: [facility], [address] [place] [address] Pathology Dept Disclaimer The Pap test is a screening test for cervical cancer. As evidenced by published data, it is subject to both inherent false negative and false positive results. Your patient's results should be interpreted in context with pertinent clinical history including gynecological examination. Normal [facility] ([place]) Basophil percentageOrdered B y: Itezl Berg on 12-12-2023 Glucose [Mass/Vol] 134 mg/dL 74-106 [facility] Comment on above: Fasting Glucose resu lt greater than or equal to 126 mg/dL suggests DIABETES MELLITUS per A.D.A. criteria. Hemoglobin (Bld) [Mass/Vol] 13.8 g/dL 12.0-15.0 [facility] WBC (Bld) [#/Vol] 6.3 10*3/uL 4.4-11.0 [facility] Determination of erythrocyte mean corpuscular volume (MCV)Ordered By: Itzel Berg on 12-12-2023 MCV (RBC) [Entitic vol] 89.9 fL 81-99 [facility] Erythrocyte distribution wid th ratioOrdered By: Itzel Berg on 12-12-2023 Erythrocyte distribution width (RBC) [Ratio] 13.3 % 11.6-14.6 [facility] Erythrocyte distribution wid th standard deviationOrdered By: Itzel Berg on 12-12-2023 Erythrocyte distribution width (RBC) [Entitic vol] 44.3 fL 35.1-43.9 [facility] Hematocrit Auto (Bld) [Volum e fraction]Ordered By: Itzeldeven Berg on 12-12-2023 Hematocrit (Bld) [Volume fraction] 42.5 % 37-47 [facility] Laboratory - Hematology and Cell countsOrdered By: Itzel Berg on 12-12-2023 MCH (RBC) [Entitic mass] 29.2 pg 27.0-32.0 [facility] MCHC (RBC) [Mass/Vol] 32.5 g/dL 32-36 [facility] Platelet mean volume (Bld) [Entitic vol] 10.2 fL 6.2-12.0 [facility] Platelets (Bld) [#/Vol] 338 10*3/uL 150-450 [facility] No Panel InformationOrdered By: Itzel Berg on 12-12-2023 Estradiol (E2) Level 15.4 pg/mL [facility] Comment on above: NORMAL REFERENCE RAN [facility] FEMALE FOLLICULAR 21.4 - 164.8 pg/mL MID-CYCLE [...] ESTRADIOL CONCENTRATION. Follicle Stimulating Hormone 63.2 mIU/mL [facility] Comment on above: NORMAL REFERENCE RAN [facility] FEMALE FOLLICULAR 2.3 - 12.6 mIU/mL MID-CYCLE PEAK 5.2 - 17.5 mIU/mL LUTEAL 1.7 - 12.9 mIU/mL POST-MENOPAUSAL ON MHT 5.9 - 72.8 mIU/mL NOT ON MHT 12.7 - 132.2 mlU/mL MALE 0.7 - 10.8 mIU/mL Insulin Level 232.8 mU/L 2.6-37.6 [facility] Miscellaneous Test See comment [facility] Comment on above: TEST RESULTS LIMITSI nhibin B, <7.0 pg/mL Early Follicular <261.0 Late Follicular <286.0 Periovulatory <189.0 MidLuteal <164.0 End Luteal <107.0 Post Menopausal < 17.0Inhibin B performed by [employer]ina[employer]ureen(TM) Enzyme Linked Immunoassaymethodology. Values obtained with different assay methods or kits cannot be used interchangeably. [facility] PERFORMED AT [facility]. ORIGINAL REPORT ON FILE IN LAB CONTAINS ADDITIONAL TEST SITE INFORMATION. Vitamin D 25-Hydroxy 13.4 ng/mL [facility] Comment on above: Vitamin D 25(OH) Sta tus Range Deficiency <20 ng/mL (50nmol/L) Insufficiency 20 - 30 ng/mL (50 - 75 nmol/L) Sufficiency 30 - 100 ng/mL (75 - 250 nmol/L) Toxicity >100 ng/mL (>250 nmol/L) RBC Auto (Bld) [#/Vol]Ordere d By: Itzel Berg on 12-12-2023 RBC (Bld) [#/Vol] 4.73 10*6/uL 4.2-5.4 [facility] Serum or plasma flecainide m easurement (mass/volume)Ordered By: Itzel Berg on 12-12-2023 Flecainide [Mass/Vol] < 0.015 ng/mL . [facility] Comment on above: For assays employing antibodies, the possibility exists forinterference by heterophile antibodies in the samples.11.Lambert Liriano Interferences in Immunoassays - still a threat. Clin. Chem. 2000; 46: 8621-3189.This test was developed and its performance characteristicsdetermined by [employer]. It has not been cleared or approvedby the Food and Drug Administration.Reference Range:Females 47 - 54y: <= 0.82Median <0.03AMH concentrations of >= 1.06 ng/mL is correlated with abetter response to ovarian stimulation, produced moreretrievable oocytes and higher odds of live accordingto Jose Eduardo et al. Fertility and Sterility. 2010:94:9907-1910. The current AMH test method correlates withthe [...] or exclude an AMH-secreting ovarian tumor.Performed at: [facility] [address] [id number] Director: Papa Chapman MD, Phone: [phone] Serum or plasma thyroid stim ulating hormone (TSH) measurement (units/volume)Ordered By: Itzel Berg on 12-12-2023 TSH Qn 0.87 uIU/mL 0.358-3.74 [facility] Whole blood hemoglobin A1c/t otal hemoglobin ratio (mass fraction)Ordered By: Itzel Berg on 12-12-2023 HbA1c (Bld) [Mass fraction] 5.5 % 3.8-5.6 [facility] Comment on above: Normal < 5.7 % Predi abetic 5.7 - 6.4 % Diabetic >or= 6.5 % Please note range changes. HPVon 12-09-2023 HPV Interp Normal See Interp HPVN [facility] ([place]) Comment on above: Order Comment: Order placed by AP_HPV_ORDER rule from [id number] Result Comment: High Risk HPV Typing: NEGATIVE [...] HPVN Performed By: #### H PV #### [address] [address] HPV Source Cervix Normal [facility] ([place]) Comment on above: Order Comment: Order placed by AP_HPV_ORDER rule from [id number] Performed By: #### H PV #### [address] [address] Absolute lymphocyte countOrd ered By: Dr. Patrick on 02-12-2023 Lymphocytes Auto (Unsp spec) [#/Vol] 2.08 10*3/uL 0.83-4.51 [facility] Basophil percentageOrdered B y: Dr. Patrick on 02-12-2023 Basophils/100 WBC (Bld) 0.7 % 0-1 [facility] Bilirubin [Mass/Vol] 0.30 mg/dL 0.20-1.00 [facility] Comment on above: For patients on eltr ombopag therapy, use of Dimension [place] TBIL is not recommended. Chloride [Moles/Vol] 105 mmol/L 98-107 [facility] Eosinophils/100 WBC (Bld) 0.8 % 0-5 [facility] Glucose [Mass/Vol] 118 mg/dL 74-106 [facility] Comment on above: Fasting Glucose resu lt from 100 to 125 mg/dL suggests IMPAIRED HOMEOSTASIS per A.D.A. criteria. Neutrophils (Bld) [#/Vol] 4.8 10*3/uL 2.0-7.7 [facility] Neutrophils/100 WBC (Bld) 63.3 % 47-70 [facility] Potassium [Moles/Vol] 3.7 mmol/L 3.5-5.1 [facility] Protein [Mass/Vol] 8.2 g/dL 6.4-8.2 [facility] Sodium [Moles/Vol] 140 mmol/L 136-145 [facility] WBC (Bld) [#/Vol] 7.6 10*3/uL 4.4-11.0 [facility] Blood erythrocytes count (nu mber/volume)Ordered By: Dr. Patrick on 02-12-2023 RBC (Bld) [#/Vol] 4.94 10*6/uL 4.2-5.4 [facility] Blood hemoglobin measurement (mass/volume)Ordered By: Dr. Patrick on 02-12-2023 Hemoglobin (Bld) [Mass/Vol] 14.4 g/dL 12.0-15.0 [facility] Blood lymphocytes/100 leukoc ytesOrdered By: Dr. Patrick on 02-12-2023 Lymphocytes/100 WBC (Bld) 27.5 % 19-41 [facility] Blood monocytes/100 leukocyt esOrdered By: Dr. aPtrick on 02-12-2023 Monocytes/100 WBC (Bld) 7.3 % 0-10 [facility] Blood platelet mean volumeOr dered By: Dr. Patrick on 02-12-2023 Platelet mean volume (Bld) [Entitic vol] 9.8 fL 6.2-12.0 [facility] Determination of erythrocyte mean corpuscular volume (MCV)Ordered By: Dr. Patrick on 02-12-2023 MCV (RBC) [Entitic vol] 91.7 fL 81-99 [facility] Hematocrit Auto (Bld) [Volum e fraction]Ordered By: Dr. Patrick on 02-12-2023 Hematocrit (Bld) [Volume fraction] 45.3 % 37-47 [facility] Laboratory - Chemistry and C hemistry - challengeOrdered By: Dr. Patrick on 02-12-2023 ALP [Catalytic activity/Vol] 84 U/L 45-117 [facility] ALT [Catalytic activity/Vol] 62 U/L 13-56 [facility] CO2 [Moles/Vol] 27.0 mmol/L 21.0-32.0 [facility] Globulin (S) [Mass/Vol] 4.0 g/dL 2.2-4.2 [facility] Urea nitrogen/Creatinine [Mass ratio] 11.1 mg/mg 10-20 [facility] Laboratory - Hematology and Cell countsOrdered By: Dr. Patrick on 02-12-2023 Erythrocyte distribution width (RBC) [Entitic vol] 44.5 fL 35.1-43.9 [facility] Erythrocyte distribution width (RBC) [Ratio] 13.1 % 11.6-14.6 [facility] Immature granulocytes/100 WBC (Bld) 0.400 % 0.0-0.9 [facility] Comment on above: IG% - Immature Granu locytes (promyelocytes, myelocytes and metamyelocytes) > 1% indicates that a LEFT SHIFT is Present. MCH (RBC) [Entitic mass] 29.1 pg 27.0-32.0 [facility] Nucleated RBC/100 WBC (Bld) [Ratio] 0 % 0-5 [facility] MCHC Auto (RBC) [Mass/Vol]Or dered By: Dr. Patrick on 02-12-2023 MCHC (RBC) [Mass/Vol] 31.8 g/dL 32-36 [facility] No Panel InformationOrdered By: Dr. Patrick on 02-12-2023 Estimated GFR (MDRD) Amer 86 mL/min >60 [facility] Comment on above: GFR Calc Estimated GFR (MDRD) Non-Af Amer 71 mL/min >60 [facility] Comment on above: Non- GFR Calc Platelets bldOrdered By: Dr. Patrick on 02-12-2023 Platelets (Bld) [#/Vol] 313 10*3/uL 150-450 [facility] Serum or plasma albumin shelli urement (mass/volume)Ordered By: Dr. Patrick on 02-12-2023 Albumin [Mass/Vol] 4.2 g/dL 3.2-5.0 [facility] Serum or plasma albumin/glob ulin mass ratioOrdered By: Dr. Patrick on 02-12-2023 Albumin/Globulin [Mass ratio] 1.0 {ratio} 0.9-2.4 [facility] Serum or plasma calcium shelli urement (mass/volume)Ordered By: Dr. Patrick on 02-12-2023 Calcium [Mass/Vol] 9.9 mg/dL 8.5-10.1 [facility] Serum or plasma creatinine m easurement (mass/volume)Ordered By: Dr. Patrick on 02-12-2023 Creatinine [Mass/Vol] 0.90 mg/dL 0.55-1.02 [facility] Comment on above: The validity of the calculated GFR & GFRAA in patients over 70 years has not been determined. Clinical correlation is essential. Serum or plasma urea nitroge n measurement (mass/volume)Ordered By: Dr. Patrick on 02-12-2023 Urea nitrogen [Mass/Vol] 10 mg/dL 7-18 [facility] Thin prep Papanicolaou smear with manual screeningOrdered By: Dr. Patrick on 02-12-2023 Thin prep Papanicolaou smear with manual screening 31 U/L 15-37 [facility] Thin prep Papanicolaou smear with manual screening 8 5-15 [facility] Absolute lymphocyte counton 02-01-2022 Lymphocytes Auto (Unsp spec) [#/Vol] 1.50 10*3/uL 0.83-4.51 [facility] Work Phone: Basophil percentageon 2021 Basophils/100 WBC (Bld) 0.5 % 0-1 [facility] Work Phone: Bilirubin [Mass/Vol] 0.30 mg/dL 0.20-1.00 [facility] Work Phone: Comment on above: For patients on eltr ombopag therapy, use of Dimension [place] TBIL is not recommended. Chloride [Moles/Vol] 108 mmol/L 98-107 [facility] Work Phone: Cholesterol [Mass/Vol] 225 mg/dL <200 [facility] Work Phone: Comment on above: <200 mg/dL Desirable 200-240 mg/dL Borderline >240 mg/dL High Risk Eosinophils/100 WBC (Bld) 1.3 % 0-5 [facility] Work Phone: Glucose [Mass/Vol] 96 mg/dL 74-106 [facility] Work Phone: Neutrophils (Bld) [#/Vol] 6.0 10*3/uL 2.0-7.7 [facility] Work Phone: Neutrophils/100 WBC (Bld) 71.8 % 47-70 [facility] Work Phone: Potassium [Moles/Vol] 3.8 mmol/L 3.5-5.1 [facility] Work Phone: Protein [Mass/Vol] 7.4 g/dL 6.4-8.2 [facility] Work Phone: Sodium [Moles/Vol] 141 mmol/L 136-145 [facility] Work Phone: Triglyceride [Mass/Vol] 167 mg/dL [facility] Work Phone: Comment on above: The drugs N-Acetylcy steine and Metamizole may falsely depress this assay.Serum Triglycerides Reference Interval Normal <150 mg/dL Borderline high 150 - 199 mg/dL High 200 - 499 mg/dL Very High > or = 500 mg/dL WBC (Bld) [#/Vol] 8.3 10*3/uL 4.4-11.0 [facility] Work Phone: Blood erythrocytes count (nu mber/volume)on 02-01-2022 RBC (Bld) [#/Vol] 4.45 10*6/uL 4.2-5.4 [facility] Work Phone: Blood hemoglobin measurement (mass/volume)on 02-01-2022 Hemoglobin (Bld) [Mass/Vol] 13.3 g/dL 12.0-15.0 [facility] Work Phone: Blood lymphocytes/100 leukoc yteson 02-01-2022 Lymphocytes/100 WBC (Bld) 18.0 % 19-41 [facility] Work Phone: Blood monocytes/100 leukocyt eson 02-01-2022 Monocytes/100 WBC (Bld) 7.9 % 0-10 [facility] Work Phone: Blood platelet mean volumeon 02-01-2022 Platelet mean volume (Bld) [Entitic vol] 10.2 fL 6.2-12.0 [facility] Work Phone: Determination of erythrocyte mean corpuscular volume (MCV)on 02-01-2022 MCV (RBC) [Entitic vol] 93.9 fL 81-99 [facility] Work Phone: Hematocrit Auto (Bld) [Volum e fraction]on 02-01-2022 Hematocrit (Bld) [Volume fraction] 41.8 % 37-47 [facility] Work Phone: Laboratory - Chemistry and C hemistry - challengeon 02-01-2022 ALP [Catalytic activity/Vol] 66 U/L 45-117 [facility] Work Phone: ALT [Catalytic activity/Vol] 60 U/L 13-56 [facility] Work Phone: CO2 [Moles/Vol] 29.0 mmol/L 21.0-32.0 [facility] Work Phone: Globulin (S) [Mass/Vol] 3.4 g/dL 2.2-4.2 [facility] Work Phone: Urea nitrogen/Creatinine [Mass ratio] 13.0 mg/mg 10-20 [facility] Work Phone: Laboratory - Hematology and Cell countson 02-01-2022 Erythrocyte distribution width (RBC) [Entitic vol] 45.1 fL 35.1-43.9 [facility] Work Phone: Erythrocyte distribution width (RBC) [Ratio] 13.2 % 11.6-14.6 [facility] Work Phone: Immature granulocytes/100 WBC (Bld) 0.500 % 0.0-0.9 [facility] Work Phone: Comment on above: IG% - Immature Granu locytes (promyelocytes, myelocytes and metamyelocytes) > 1% indicates that a LEFT SHIFT is Present. MCH (RBC) [Entitic mass] 29.9 pg 27.0-32.0 [facility] Work Phone: Nucleated RBC/100 WBC (Bld) [Ratio] 0 % 0-5 [facility] Work Phone: MCHC Auto (RBC) [Mass/Vol]on 02-01-2022 MCHC (RBC) [Mass/Vol] 31.8 g/dL 32-36 [facility] Work Phone: No Panel Informationon 02-01 Estimated GFR (MDRD) Amer 84 mL/min >60 [facility] Work Phone: Comment on above: GFR Calc Estimated GFR (MDRD) Non-Af Amer 70 mL/min >60 [facility] Work Phone: Comment on above: Non- GFR Calc Thyroid Stimulating Hormone (TSH) 1.05 uIU/mL 0.358-3.74 [facility] Work Phone: Platelets bldon 02-01-2022 Platelets (Bld) [#/Vol] 275 10*3/uL 150-450 [facility] Work Phone: Serum or plasma albumin shelli urement (mass/volume)on 02-01-2022 Albumin [Mass/Vol] 4.0 g/dL 3.2-5.0 [facility] Work Phone: Serum or plasma albumin/glob ulin mass ratioon 02-01-2022 Albumin/Globulin [Mass ratio] 1.2 {ratio} 0.9-2.4 [facility] Work Phone: Serum or plasma calcium shelli urement (mass/volume)on 02-01-2022 Calcium [Mass/Vol] 9.3 mg/dL 8.5-10.1 [facility] Work Phone: Serum or plasma cholesterol in HDL measurement (mass/volume)on 02-01-2022 Cholesterol in HDL [Mass/Vol] 54 mg/dL [facility] Work Phone: Comment on above: The drugs N-Acetylcy steine and Metamizole may falsely depress this assay. Reference Range HDL <40 mg/dL Low HDL Cholesterol HDL >or= 60 mg/dL High HDL Cholesterol Serum or plasma cholesterol in VLDL measurement (mass/volume)on 02-01-2022 Cholesterol in VLDL [Mass/Vol] 33 mg/dL 5-40 [facility] Work Phone: Serum or plasma creatinine m easurement (mass/volume)on 02-01-2022 Creatinine [Mass/Vol] 0.93 mg/dL 0.55-1.02 [facility] Work Phone: Comment on above: The validity of the calculated GFR & GFRAA in patients over 70 years has not been determined. Clinical correlation is essential. Serum or plasma low density lipoprotein (LDL) cholesterol measurement (mass/volume)on 02-01-2022 Cholesterol in LDL [Mass/Vol] 138 mg/dL 0-130 [facility] Work Phone: Serum or plasma urea nitroge n measurement (mass/volume)on 02-01-2022 Urea nitrogen [Mass/Vol] 12 mg/dL 7-18 [facility] Work Phone: Thin prep Papanicolaou smear with manual screeningon 02-01-2022 Thin prep Papanicolaou smear with manual screening 29 U/L 15-37 [facility] Work Phone: Thin prep Papanicolaou smear with manual screening 4 5-15 [facility] Work Phone: XR Chest PA and Lateralon IMPRESSION: Refer to the result. Desk Attendant: ЕКАТЕРИНА Transcribe Date/Time: Jun 14 2021 2:25P Dictated by : TRUPTI GOMEZ MD This examination was interpreted and the report reviewed and electronically signed by: TRUPTI GOMEZ MD on Jun 14 2021 2:30PM [facility] DIVISION OF RADIOLOGY * * *Final Report* [...] is identified. DIVISION OF RADIOLOGY Provider, [facility] - 06/14/2021 * * *Final Report* [...] identified. IMPRESSION IMPRESSION: Refer to the result. Desk Attendant: PSCB Transcribe Date/Time: Jun 14 2021 2:25P Dictated by : TRUPTI GOMEZ MD This examination was interpreted and the report reviewed and electronically signed by: TRUPTI GOMEZ MD on Jun 14 2021 2:30PM EST [facility] Radiology Study observation (narrative) [facility] XR Chest PA and LateralOrder ed By: [facility] Provider on 06-14-2021 [facility] XR Chest PA and Lateralon IMPRESSION: Subtle patchy opacities throughout the RIGHT lung may reflect an infectious process. Desk Attendant: ЕКАТЕРИНА Transcribe Date/Time: May 16 2021 11:02A Dictated by : TRUPTI GOMEZ MD This examination was interpreted and the report reviewed and electronically signed by: TRUPTI GOMEZ MD on May 16 2021 11:04AM [facility] DIVISION OF RADIOLOGY * * *Final Report* [...] acute osseous abnormality. DIVISION OF RADIOLOGY Provider, [facility] - 05/16/2021 * * *Final Report* [...] RIGHT lung may reflect an infectious process. Desk Attendant: ЕКАТЕРИНА Transcribe Date/Time: May 16 2021 11:02A Dictated by : TRUPTI GOMEZ MD This examination was interpreted and the report reviewed and electronically signed by: TRUPTI GOMEZ MD on May 16 2021 11:04AM EST [facility] Radiology Study observation (narrative) [facility] XR Chest PA and LateralOrder ed By: [facility] Provider on 05-16-2021 [facility] Vital Signs Date Time Vital Sign Value Performing Clinician Liliana loomis 04-22-2025 10:00-0400 Body height 160.[address] Jr Oviedo MD Work Phone: [facility] 04-22-2025 10:00-0400 Body mass index (BMI) [Ratio] 33.8 kg/m2 Dr. Jr Oviedo MD Work Phone: [facility] 04-22-2025 10:00-0400 Body weight 86.[address] Jr Oviedo MD Work Phone: [facility] 04-22-2025 10:00-0400 Diastolic blood pressure 92 mm[Hg] Dr. Jr Oviedo MD Work Phone: [facility] 04-22-2025 10:00-0400 Systolic blood pressure 129 mm[Hg] Dr. Jr Oviedo MD Work Phone: [facility] 01-26-2025 07:50-0400 Body height 160.[address] Radha Patrick MD Work Phone: [facility] 01-26-2025 07:50-0400 Body mass index (BMI) [Ratio] 32.2 kg/m2 Dr. Radha Patrick MD Work Phone: [facility] 01-26-2025 07:50-0400 Body temperature 98 [degF] Dr. Radha Patrick MD Work Phone: [facility] 01-26-2025 07:50-0400 Body weight 82.[address] Radha Patrick MD Work Phone: [facility] 01-26-2025 07:50-0400 Diastolic blood pressure 80 mm[Hg] Dr. Radha Patrick MD Work Phone: [facility] 01-26-2025 07:50-0400 Heart rate 103 /min Dr. Radha Patrick MD Work Phone: [facility] 01-26-2025 07:50-0400 SaO2% (BldA) [Mass fraction] 97 % Dr. Radha Patrick MD Work Phone: [facility] 01-26-2025 07:50-0400 Systolic blood pressure 122 mm[Hg] Dr. Radha Patrick MD Work Phone: [facility] 01-06-2025 13:02-0400 Body height 160.[address] Radah Patrick MD Work Phone: [phone] [place] [address] 01-06-2025 13:02-0400 Body mass index (BMI) [Ratio] 32.2 kg/m2 Dr. Radha Patrick MD Work Phone: [phone])[phone] [place] [address] 01-06-2025 13:02-0400 Body weight 82.[address] Radha Patrick MD Work Phone: [facility] 01-06-2025 13:02-0400 Diastolic blood pressure 87 mm[Hg] Dr. Radha Patrick MD Work Phone: [facility] 01-06-2025 13:02-0400 Systolic blood pressure 123 mm[Hg] Dr. Radha Patrick MD Work Phone: [facility] 01-01-2025 10:45-0400 Body mass index (BMI) [Ratio] 32.1 kg/m2 Dr. Radha Patrick MD Work Phone: [facility] 01-01-2025 10:45-0400 Body weight 82.[address] Radha Patrick MD Work Phone: [facility] 01-01-2025 10:45-0400 Diastolic blood pressure 85 mm[Hg] Dr. Radha Patrick MD Work Phone: [facility] 01-01-2025 10:45-0400 Heart rate 105 /min Dr. Radha Patrick MD Work Phone: [facility] 01-01-2025 10:45-0400 Respiratory rate 18 /min Dr. Radha Patrick MD Work Phone: [facility] 01-01-2025 10:45-0400 SaO2% (BldA) [Mass fraction] 96 % Dr. Radha Patrick MD Work Phone: [facility] 01-01-2025 10:45-0400 Systolic blood pressure 122 mm[Hg] Dr. Radha Patrick MD Work Phone: [facility] Encounters Encounter Date Encounter Type Care Provider Facility Start: 07-01-2025 ambulatory [facility] Facility: [facility] Start: 05-13-2025 ambulatory [facility] Facility: [facility] Start: 05-12-2025 Encounter for genera l adult medical examination without abnormal findings [address] [facility] Start: 05-05-2025 End: 05-05-[address] Radha Patrick MD Work Phone: -[facility] Start: 05-05-2025 End: 05-05-[address] Radha Patrick MD Work Phone: -[facility] Work Phone: Start: 05-05-2025 End: 05-05-2025 ambulatory C1 TIFFANY Facility:[facility] Start: 04-22-2025 End: 04-22-[address] Jr Oveido MD Work Phone: -[facility] Start: 04-22-2025 End: 04-22-2025 Patient encounter procedure Yamilex PATEL -[facility]patient [facility] Work Phone: Start: 04-22-2025 End: 04-22-2025 Patient encounter procedure Yamilex PATEL -[facility] Work Phone: Start: 04-22-2025 End: 04-22-2025 Patient encounter status Yamilex Welsh NP-C [facility] Start: 04-22-2025 End: 04-22-[address] Jr Oviedo MD Work Phone: -[facility] Start: 04-22-2025 End: 04-22-2025 ambulatory Yamilex Welsh Facility:[facility] Start: 04-14-2025 End: 04-14-[address] Jr Oviedo MD Work Phone: -[facility] [place] Start: 04-14-2025 End: 04-14-2025 Patient encounter procedure Yamilex HENSONC -[facility] [place] Work Phone: Start: 04-14-2025 End: 04-14-2025 ambulatory Yamilex Welsh Facility:[facility] Start: 02-12-2025 End: 02-12-[address] Jr Oviedo MD Work Phone: -[facility] [place] Start: 02-12-2025 End: 02-12-[address] Radha Patrick MD -[facility] [place] Work Phone: Start: 02-12-2025 End: 02-12-2025 ambulatory Radha Patrick Facility:[facility] Start: 01-26-2025 End: 01-26-2025 Patient encounter procedure Cole FINLEY -[facility] Work Phone: Start: 01-26-2025 End: 01-26-[address] Radha Patrick MD Work Phone: [facility] Work Phone: Start: 01-26-2025 End: 01-26-2025 ambulatory Cole FINLEY Facility:[facility] Start: 01-06-2025 End: 01-06-2025 Patient encounter procedure Yamilex Welsh NP-C -[facility] Work Phone: Start: 01-06-2025 End: 01-06-[address] Radha Patrick MD Work Phone: [facility] Work Phone: Start: 01-01-2025 End: 01-01-[address] Jr Oviedo MD -[facility] Work Phone: Start: 01-01-2025 End: 01-01-2025 ambulatory Jr Oviedo Facility:[facility] Start: 09-22-2024 End: 09-22-[address] Radha Patrick MD -Ultrasound [facility] Work Phone: Start: 09-22-2024 End: 09-22-2024 ambulatory Radha Patrick Facility:[facility] Start: 12-12-2023 End: 12-12-2023 ambulatory [facility] Work Phone: Start: 12-12-2023 End: 12-12-2023 Patient encounter procedure [facility]atory, [place] Work Phone: Start: 12-04-2023 End: 12-09-2023 ambulatory ITZEL BERG APRN-[facility] Facility:B Start: 12-04-2023 End: 12-09-2023 Encounter for gynecological examination (general) (routine) without abnormal findings ITZEL BERG APRN-[facility]ivid[facility] Facility:[facility] Start: 12-04-2023 End: 12-08-2023 Outreach Lab ITZEL BERG APRN-[facility] Start: 07-03-2023 ambulatory Georgia Casanova Work Phone: Internal Medicine [facility] Start: 04-16-2023 End: 04-16-2023 ambulatory [facility] Work Phone: Start: 04-16-2023 End: 04-16-2023 Patient encounter procedure [facility]-Outpatient Breast Imaging Work Phone: Start: 02-12-2023 End: 02-12-2023 ambulatory [facility] Work Phone: Start: 02-12-2023 End: 02-12-2023 Patient encounter procedure [facility]-Laboratory Start: 07-04-2022 ambulatory Georgia Casanova Work Phone: Internal Medicine [facility] [place] Start: 02-01-2022 End: 02-01-2022 Patient encounter procedure [facility] [place] Start: 06-14-2021 End: 06-14-2021 Subsequent hospital visit by physician Xr [facility] Work Phone: Radiology Comment on above: Pneumonia due to COV ID-19 virus [U07.1, J12.82] Start: 05-16-2021 End: 05-16-2021 Subsequent hospital visit by physician Xr [facility] Work Phone: Radiology Comment on above: Cough [R05] Procedures Date Procedure Procedure Detail Performing Clinician Start: 04-22-2025 Screening mammography Jocelyne Oviedo MD Work Phone: Start: 04-14-[address] hormone [address] [...] exam ches t 2 views Emilia Briceño [employer]IL[employer] CARPENTER.H[employer] FILE CLERK Work Phone: Start: 05-16-2021 Radiologic exam ches t 2 views Dalila Carson PA-C Work Phone: Start: 06-02-2020 Mammography Georgia freitas MD Work Phone: Start: 11-02-2014 Lipid 1996 panel - Serum or Plasma Georgia Dillon MD Work Phone: Start: 04-26-2007 H/O: tubal ligation History of tubal ligation section ITZEL GAMBLE RAILCAR CARPENTER-CNM Destructive procedure MILANA BERG RAILCAR CARPENTER-CNM H/O: section History of C-sectio n H/O: surgery History of nasal surgery History of tonsillectomy History of tonsillectomy Ligation of fallopia n tube ITZEL BERG RAILCAR CARPENTER-CNM Rhinp dfrm w/colum lngth tip only ITZEL BERG RAILCAR CARPENTER-CNM Tonsillectomy ITZEL Barahona RAILCAR CARPENTER-CNM Plan of Treatment Date Care Activity Detail Author Start: 10-10-2028 Urine microalbumin profile [facility] Start: 01-06-2025 Estradiol (E2) [Mass/volume] in Serum or Plasma [facility] Start: 01-06-2025 Follicle stimulating hormone measurement [facility] Start: 04-26-2024 Covid-19 Vaccine ( season) Covid-19 Vaccine ( season) [facility] Start: 04-26-2024 Influenza vaccination Influenza Vacc ine (#1) [facility] Start: 04-26-2023 Influenza vaccination Influenza Vacc ine (#1) [facility] Start: 08-26-2022 Depression Assessment Depression Ass essment [facility] Start: 04-26-2022 Influenza vaccination INFLUENZA (#1) [facility] Start: 2021 COLOGUARD (FIT-DNA) COLOGUARD (FIT-D NA) [facility] Start: 2021 Colonoscopy COLONOSCOPY [facility] Start: 2021 COLORECTAL CANCER SCREENING COLORECTAL CANCER SCREENING [facility] Start: [address] COLONOGRAPHY [facility] Start: 2021 DIABETES SCREEN DIABETES SCREEN [facility] Start: 2021 Diabetes Screening Diabetes Screenin g [facility] Start: 2021 FECAL OCCULT BLOOD FECAL OCCULT BLOO D [facility] Start: 2021 Lipid 1996 panel - S deya or Plasma Lipid Screening [facility] Start: 2021 Lipid panel Lipid Screening [facility] Start: 2021 LIPID SCREEN LIPID SCREEN [facility] Start: 2021 Screening for malign ant neoplasm of colon [facility] Start: 2021 SIGMOIDOSCOPY SIGMOIDOSCOPY [facility] Start: 10-08-2021 HPV TESTING HPV TESTING [facility] Start: 10-08-2021 PAP TESTING PAP TESTING [facility] Start: 10-08-2021 Screening for malign ant neoplasm of cervix Cervical Cancer Screening [facility] Start: 08-26-2021 DEPRESSION ASSESSMENT DEPRESSION ASS ESSMENT [facility] Start: 06-02-2021 Mammography [facility] Start: 06-02-2021 Screening for malign ant neoplasm of breast Mammogram Screening [facility] Start: 11-22-1995 Hepatitis B Vaccine (1 of 3 - 19+ 3-dose series) Hepatitis B Vaccine (1 of 3 - 19+ 3-dose series) [facility] Start: 1994 Anxiety Screening Anxiety Screening [facility] Start: 1994 Depression Screening Depression Scre ening [facility] Start: 1994 HEPATITIS C SCREENING HEPATITIS C [facility] Start: 1994 Hepatitis C screening Hepatitis C [facility] Start: 1994 HIV SCREENING HIV SCREENING [facility] Start: 1994 HIV screening HIV Screening [facility] Start: 05-24-1977 COVID-19 VACCINE (#1) COVID-19 VACCI NE (#1) [facility] Start: 1976 HEPATITIS B (1 of 3 - 3-dose series) HEPATITIS B (1 of 3 - 3-dose series) [facility] Start: 1976 Hepatitis B Vaccine (1 of 3 - 3-dose series) Hepatitis B Vaccine (1 of 3 - 3-dose series) [facility] End: 08-01-2024 WILI SCREENING WILI SCREENING Radiology Routine Encounter for screening mammogram for breast cancer 1 Occurrences starting 07/03/2023 until 08/01/2024 [facility] Work Phone: Comment on above: 1 Occurrences starti ng 07/03/2023 until 08/01/2024 End: 08-03-2023 Screening mammography bi [facility] SCREENING Radiology Routine Encounter for screening mammogram for breast cancer 1 Occurrences starting 07/04/2022 until 08/03/2023 [facility] Work Phone: Comment on above: 1 Occurrences starti ng 07/04/2022 until 08/03/2023 [facility] Immunizations Immunization Date Immunization Notes Care Provider Fa cili 06-14-2021 influenza, injectabl e, quadrivalent, contains preservative Georgia Dillon MD Work Phone: [facility] 06-14-2021 influenza virus vaccine, unspecified formulation Georgia Dillon MD Work Phone: [facility] 07-02-2020 influenza, injectabl e, quadrivalent, contains preservative Georgia Dillon MD Work Phone: [facility] Work Phone: 07-31-2019 influenza, injectabl e, quadrivalent, contains preservative Georgia Dillon MD Work Phone: [facility] Work Phone: 06-04-2017 influenza, injectabl e, quadrivalent, contains preservative Georgia Dillon MD Work Phone: [facility] Work Phone: 06-07-2016 influenza, injectabl e, quadrivalent, contains preservative Georgia Dillon MD Work Phone: [facility] Work Phone: 06-09-2015 influenza, injectabl e, quadrivalent, contains preservative Georgia Dillon MD Work Phone: [facility] Work Phone: 06-09-2014 influenza, seasonal, injectable Georgia Dillon MD Work Phone: [facility] Work Phone: 06-30-2013 influenza virus vaccine, unspecified formulation Georgia Dillon MD Work Phone: [facility] Work Phone: 05-26-2011 influenza virus vaccine, unspecified formulation Georgia Dillon MD Work Phone: [facility] Work Phone: 06-18-2006 influenza virus vaccine, unspecified formulation Georgia Dillon MD Work Phone: [facility] Work Phone: 11-02-2005 tetanus toxoid, redu agusto diphtheria toxoid, and acellular pertussis vaccine, adsorbed Georgia Dillon MD Work Phone: [facility] Work Phone: Payers Date Payer Category Payer Self-pay [id number] 2024 Unknown [id number] 2021 Unknown MMO MMO [employer] [id number] 2021-Present [phone] [address] [place] [address] Indemnity [id number] 2019 Private Health Insurance [employer] A ETNA POS [id number] 2019-2021 [address] [place] [address] POS [id number] 2012 Unknown [id number] 2006 Unknown [id number] 1976 Unknown [id number] Unknown [id number]. 462 Unknown [id number]. 462 Unknown [id number] [id number]. 462 Unknown [id number] [id number]. 462 Unknown [id number]. 462 Unknown [id number] [id number]. 462 Unknown [id number] [id number]. 462 Unknown [id number] [id number]. 462 Unknown [id number] [id number]. 462 Unknown [id number] [id number]. 462 Unknown [id number] 2..[id number]. 462 Unknown [id number] 2..[id number]. 462 Unknown [id number] [id number]. 462 Social History Date Type Detail Facility Start: 05-22-2018 Tobacco smoking stat us DEIS Unknown if ever smoked [facility] Start: 1975 Sex Assigned At Female C [facility] Start: 05-17-2014 End: 12-09-2024 Tobacco smoking status NHIS Ex-smoker [facility] Work Phone: Start: 12-13-2005 End: 12-13-2013 History of tobacco use Current smoker [facility] Work Phone: Start: 12-13-2005 End: 12-13-2013 History of tobacco use Cigarette Smoker [facility] Work Phone: Start: 05-17-2014 End: 08-03-2020 Cigarettes smoked current (pack per day) - Reported 1 [facility] Start: 05-17-2014 Tobacco use and exposure Smoke less tobacco non-user [facility] Work Phone: Start: 05-16-2021 Alcohol intake Current drinke r of alcohol (finding) [facility] Start: 08-30-2020 History SDOH Alcohol Frequency 2 [facility] Start: 08-30-2020 History SDOH Alcohol Binge 1 [facility] Start: 08-30-2020 History SDOH Social Connections Phone 5 [facility] Start: 08-30-2020 History SDOH Social Connections Get Together 98 [facility] Start: 08-30-2020 History SDOH Social Connections Living 3 [facility] Start: 08-30-2020 Education 15 [facility] Start: 11-11-2013 Tobacco Comment quit while [facility] Start: 07-03-2011 Alcohol Comment occasional 15-20/yea r [facility] Start: 08-03-2020 End: 08-30-2020 Social connection and isolation panel [facility] How often do you get together with friends or relatives? Patient refused [facility] Do you belong to any clubs or organizations such as advent groups, unions, fraternal or athletic groups, or school groups? No [facility] Are you now , , , , never or living with a partner? [facility] How often to you hav e a drink containing alcohol? Monthly or less [facility] How many standard dr inks containing alcohol do you have on a typical day? 3 or 4 [facility] How often do you hav e 6 or more drinks on 1 occasion? Never [facility] Do you feel stress - tense, restless, nervous, or anxious, or unable to sleep at night because your mind is troubled all the time - these days [OSQ] Only a little [facility] (I/We) worried mike er (my/our) food would run out before (I/we) got money to buy more. Never true [facility] Start: 06-08-2021 Gender identity Identifies as female gender (finding) [facility] Start: 12-04-2023 Tobacco smoking status Never s moked tobacco (finding) [facility] Start: 04-16-2021 End: 05-16-2021 Exposure to SARS-CoV-2 (event) Not sure [facility] Clinical Notes 05-16-2021 to 04-22-2025 Note Date & Type Note Facility 04-22-2025 Evaluation note Diagnosis Onset Date Resolution Hot flashes due to menopause acute April 22 9:54am Vaginal atrophy acute April 222024 9:54am Encounter for routine gynecological examination noneactive April 22 9:54am [facility] Work Phone: 1(287) 420-182006-20-2025 Radiology Diagnostic study note [facility] Imaging Services [address] [place], [place] [address] HIP, UNI W/ Pelvis 2-3 Views MR#: [id number] Acct: [id number] Name: GUERLINE CHAMBERLAIN Rep #: [id number] : 1975 F 49 From: Jeanne Tejada MD PCP: Dr. Radha Patrick MD Status: REG CLI Study:HIP, UNI W/ Pelvis 2-3 Views Date of Ex am: 02/12/25 Exam# [id number] Ordering Dr: Donna Patrick MD EXAM: XR [...] Views IMPRESSION: No acute fracture. Reading Location: [id number] CC: Dr. Radha Patrick MD ~ Desk Attendant: Signed [facility]06-03-2025 Progress [facility] [address], [address] [place] [address] OFFICE VISIT Date of Service: 01/26/25 MR#: [id number] Acct: [id number] Name: GUERLINE CHAMBERLAIN Rep #: [id number] : 1975 Provider: MALIA Kelly Age/Sex: 49/F Location: [facility] Status: Signed Intake Vital Signs 01/06/25 13:02 [...] painful urination since last night. [facility] Medical History H/O recurrent pneumonia Osteoarthritis Chronic [...] in color/ character of urine orstool. No hekv-ude-zidnkoe products taken to assist. No other associated [...] 5 days 10 caps 0RF 01/26/25 0751 s MALIA FINLEY> Date _ Cole FINLEY Cosigner Signature: Date (if applicable) CC: ~ [facility]06-03-2025 Progress note Author Cloe [facility] Note Date/Time January 26, 2025 7:51a [facility] [address], [address] [place] [address] OFFICE VISIT Date of Service: 01/26/25 MR#: [id number] Acct: [id number] Name: GUERLINE CHAMBERLAIN Rep #: [id number] : 1975 Provider: MALIA Kelly Age/Sex: 49/F Location: [facility] Status: Signed Intake Vital Signs 01/06/25 13:02 [...] in color/ character of urine orstool. No fkbo-wqr-zcuxtvt products taken to assist. No other associated [...] Q12H 5 days 10 caps 0RF 01/26/25 0755 <Electronically signed by Cole FINLEY> Date _ Cole FINLEY Cosigner Signature: Date (if applicable) CC: ~ [facility] Work Phone: 1(734) 272-733605-09-2025 Evaluation note* Diagnosis Onset Date Resolution Status Admit Date Encounter for cosmetic surgery acute January 01, 2025 10:18am [facility] Work Phone: 1(986) 897-452605-09-2025 Evaluation note* Diagnosis Onset Date Resolution Status Admit Date Encounter for cosmetic surgery acute January 01, 2025 10:18am Hot flashes due to menopause acute January 06, 2025 12:59pm [facility] Work Phone: 1(766) 487-899905-09-2025 Evaluation note* Diagnosis Onset Date Resolution Status Admit Date Encounter for cosmetic surgery acute January 01, 2025 10:18am Hot flashes due to menopause acute January 06, 2025 12:59pm Encounter for routine gynecological examination noneactive April 22, 2025 9:54am [facility] Work Phone: 1(720) 639-507605-09-2025 Evaluation note* Diagnosis Onset Date Resolution Status Admit Date Encounter for cosmetic surgery acute January 01, 2025 10:18am Hot flashes due to menopause acute January 06, 2025 12:59pm Hot flashes due to menopause acute April 22, 2025 9:54am Vaginal atrophy acute April 222024 9:54am Encounter for routine gynecological examination noneactive April 22, 2025 9:54am [facility] Work Phone: 1(469) 666-803311-08-2023 NotePatient Outreach (INTMMN) GUERLINE CHAMBERLAIN ([id number]) 1975 F Date Time Provider Department 07/03/23 [place]OR[place]IA DILLON INTMMN During your visit today, we recorded the following information about you: Allergies As of Date: 07/03/2023 (No Known Allergies) Date Reviewed: 06/14/2021 Reviewed by: Rachelle Cage Ma - Fully Assessed Visit Diagnosis:Encounter for screening mammogram for breast cancer [Z12.31] Order(s):[facility] [[id number]] Order #: [id number] FUTURE Prescriptions as of 07/08/2023 - fluticasone [...] B12 deficiency [E53.8] 06/04/2017 Encounter Status:Closed by Zaggora, PRODUSER on 07/08/23[facility] 06-14-2021 History of Present illness Narrative* Genevieve England, RT(R) - 06/14/2021 2:10 PM EDT Radiology [...] 14, 2021 2:15 PM [facility] of Present illness Narrative* [...] 16, 2021 10:53 AM [facility] note Future Appointments Appointment Date:01/01/2024 10:00:00 AM Scheduled Provider:ITZEL BERG Location:[facility] Appointment Type:[facility] Diagnostic Tests Pending * HPV Screen, DNA Probe 12/04/23 Future Scheduled Tests Laboratory* Inhibin B 12/05/23 * Estradiol Level 12/05/23 * Thyroid Stimulating Hormone 12/05/23 * Anti-Mullerian Hormone (AMH) 12/05/23 * A1C Hemoglobin 12/05/23 * Complete Blood Count 12/05/23 * Follicle Stimulating Hormone Level 12/05/23 * Glucose Level 12/05/23 * Insulin Level Total 12/05/23 * Vitamin D Level 12/05/23 [facility] Evaluation noteNo assessment information available [facility] Work Phone: Evaluation note* Diagnosis Encounter for screening mammogram for breast cancer [facility] Encounter for screening mammogram for breast cancer [facility] [place] [facility]* Diagnosis MIGRAINE MENSTRUAL- Primary Premenstrual tension [...] to COVID-19 virus [facility] MIGRAINE MENSTRUAL- Primary Premenstrual [...] unspecified type Cough documented in this encounter [facility] course Narrative No data available for this section [facility] Hospital Discharge instructions No data available for this section [facility] Progress note No data available for this section [facility] Reason for referral (narrative)* Diagnostic Procedure Only (Routine) - Pending Review Specialty Diagnoses / Procedures Referred By Dariusz wiseman Referred To Contact [facility] Diagnoses Encounter for screening mammogram for breast cancer Procedures WILI SCREENING SCREENING MAMMOGRAPHY BI 2-[facility] Georgia Sierra MD [address] [place] [address] [facility] [address] [place] [id number] Referral ID Status Reason Start Date Expiration Date Visits Requested Visits Authorized [id number] Pending Review Auto-Generat ed Referral 07/04/2022 08/03/2023 1 1 [facility] for referral (narrative)* Diagnostic Procedure Only (Routine) - Pending Review Specialty Diagnoses / Procedures Referred By Dariusz wiseman Referred To Contact [facility] Diagnoses Encounter for screening mammogram for breast cancer Procedures WILI SCREENING SCREENING MAMMOGRAPHY BI 2-VIEW BREAST INC Georgia Sierra MD [address] [place] [address] [facility] [place] [address] Referral ID Status Reason Start Date Expiration Date Visits Requested Visits Authorized [id number] Pending Review Auto-Generat ed Referral 07/03/2023 08/01/2024 1 1 [facility] for referral (narrative)No reason for referral information [facility] Work Phone: Family History No Family [...] EORDER April 14, 2025 7: 03am Annual (METAL MELTER) April 22, 2025 9: 54am Reason for Visit Admit Date Encounter for cosmetic surgery January 01, 2025 10:18am Hot flashes due to menopause January 06 025 12:59pm Encounter for routine gynecological exam ination April 22, 2025 9:54am Chief Complaint Admit Date COSMETIC CONSULT January 01, 2025 10:18a m HOROMONE THERAPY January 06, 2025 12:59 pm CONCERN FOR UTI January 26, 2025 7:35a m ALSO HIP XRAY February 12, 2025 7:31 am EORDER April 14, 2025 7: 03am Annual (METAL MELTER) April 22, 2025 9: 54am Breast Cancer Screening April 22 11:50am Reason for Visit Admit Date Encounter for cosmetic surgery January 01, 2025 10:18am Hot flashes due to menopause January 06 025 12:59pm Hot flashes due to menopause March 9:54am Vaginal atrophy April 22, 2025 9: 54am Encounter for routine gynecological exam ination April 22, 2025 9:54am Chief Complaint Admit Date CONCERN FOR UTI January 26, 2025 7:35a m ALSO HIP XRAY February 12, 2025 7:31 am EORDER April 14, 2025 7: 03am Annual (METAL MELTER) April 22, 2025 9: 54am Breast Cancer Screening April 22 11:50am A1C May 05, 2025 9:58am Reason for Visit Admit Date Hot flashes due to menopause March 9:54am Vaginal atrophy April 22, 2025 9: 54am Encounter for routine gynecological exam ination April [...] or prosecute any alcohol or drug abuse patient.[facility] Center[facility] the event this information is protected by the Federal Confidentiality of Alcohol and Drug Abuse Patient Records regulations: The Federal rules restrict any use of the information to criminally investigate or prosecute any alcohol or drug abuse patient.[facility] Center[facility] the event this information is protected by the Federal Confidentiality of Alcohol and Drug Abuse Patient Records regulations: The Federal rules restrict any use of the information to criminally investigate or prosecute any alcohol or drug abuse patient.[facility] Center[facility] the event this information is protected by the Federal Confidentiality of Alcohol and Drug Abuse Patient Records regulations: The Federal rules restrict any use of the information to criminally investigate or prosecute any alcohol or drug abuse patient.[facility] Care Teams (unrecognized sec tion [...] January 06, 2025 End: January 06, 2025 Yamilex Barkman , DIABETES MANAGER-C Attending Provider Active Start: January 06, 2025 [...] January 26, 2025 End: January 26, 2025 .Net Architect Relationship Specialty Start Date End Date Georgia Dillon MD [address] [place] [address] PCP - General Internal Medicine 04/05/15 Team Status: Active Member Role Status Dates Dr. Morgan Thompson MD Family Provider Active Dr. Radha Patrick MD Primary Care Provider Active Team Status: Inactive Member Role Status Dates Dr. Radha Patrick MD Primary Care Prov ider, Attending Provider, Referring Provider Active .Net Architect Relationship Specialty Start Date End Date Georgia Dillon MD [address] [place], [place] [id number] PCP - General Internal Medicine 04/05/15 Team Status: Inactive Member Role Status Dates Dr. Radha Patrick MD Primary Care Provider Active Itzel Berg CNM Attending Provider, Referring Pr ovider Active .Net Architect Relationship Specialty Start Date End Date Georgia Dillon MD [address] [place] [address] PCP - General Internal Medicine 04/05/15 Team [...] Team Status: Active Member Role Status Dates SIXTO LuceroC Attending Provider Active Start: January 06, 2025 [...] Team Status: Inactive Member Role/Relationship Status Dates SIXTO LuceroC Attending Provider Active Start: January 06, 2025 [...] April 22, 2025 End: April 22, 2025 Team Status: Inactive Member Role/Relationship Status Dates Dr. Radha Patrick MD Primary Care Provider Active Start: April 22, 2025 End: April 22, 2025 AMANDA Lucero Attending Provider Active Start: April 22, 2025 End: April 22, 2025 AMANDA Lucero Referring Provider Active Start: April 22, 2025 End: April 22, 2025 Team Status: Active Member Role/Relationship Status Dates Dr. Radha Patrick MD Primary care physician Active Team Status: Inactive Member Role/Relationship Status Dates MALIA Metcalf Attending physician Active Start: January 26, 2025 End: January 26, 2025 Team Status: Inactive Member Role/Relationship Status Dates MALIA Metcalf Attending physician Active Start: January 26, 2025 End: January 26, 2025 Team Status: Inactive Member Role/Relationship Status Dates Dr. Radha Patrick MD Primary care physician Active Start: February 12, 2025 End: February 12, 2025 Dr. Radha Patrick MD Attending physician Active Start: February 12, 2025 End: February 12, 2025 Dr. Radha Patrick MD Referring Provider Active Start: February 12, 2025 End: February 12, 2025 Team Status: Inactive Member Role/Relationship Status Dates Dr. Radha Patrick MD Primary care physician Active Start: April 14, 2025 End: April 14, 2025 AMANDA Lucero Attending physician Active Start: April 14, 2025 End: April 14, 2025 AMANDA Lucero Referring Provider Active Start: April 14, 2025 End: April 14, 2025 Team Status: Inactive Member Role/Relationship Status Dates AMANDA Lucero Attending physician Active Start: April 22, 2025 End: April 22, 2025 Dr. Radha Patrick MD Primary care physician Active Start: April 22, 2025 End: April 22, 2025 Dr. Radha Patrick MD Referring Provider Active Start: April 22, 2025 End: April 22, 2025 Team Status: Inactive Member Role/Relationship Status Dates Dr. Radha Patrick MD Primary care physician Active Start: April 22, 2025 End: April 22, 2025 AMANDA Lucero Attending physician Active Start: April 22, 2025 End: April 22, 2025 AMANDA Lucero Referring Provider Active Start: April 22, 2025 End: April 22, 2025 Team Status: Inactive Member Role/Relationship Status Dates HEIKE DAVIS Attending physician Active Start: S [email or web address] 2024 End: May 05, 2025 HEIKE DAVIS Referring Provider Active Start: Se [email or web address] 2024 End: May 05, 2025 Dr. Radha Patrick MD Primary care physician Active Start: May 05, 2025 End: May 05, 2025 INFORMATION SOURCE (unrecogn ized section and content) DATE CREATED AUTHOR 07/08/2023 [facility] DATE CREATED AUTHOR AUTHOR'S ORGANIZ ATION 01/12/2024 [facility] ([place]) DATE CREATED AUTHOR AUTHOR'S ORGANIZ ATION 07/03/2025 [facility] FOR RECORDS PERTAINING TO PATIENTS WHO [...] BE BASED ON THE PRIMARY CLINICAL RECORDS. [employer] provides no warranty or guarantee of the accuracy or completeness of information in this document.
== END | disposition home or self-care (01) ==
LOC: LABSPEC 12:25
PROVIDERS: PCP Family Medicine; Visit Provider Physician Assistant
DX: R30.0 Dysuria (principal)
CPT/HCPCS: 87077; 87086; 87088